=== PATIENT | female | born 1965 | race Caucasian/White ===

== ENCOUNTER 2017-03-15 18:30 | Emergency (ER) | payer MEDICARE, MEDICAID ==
[2017-03-15 19:12] VITALS: BP 99/70
[2017-03-15] MEDS ORDERED: HYDROmorphone 1 MG/ML Syringe IVPUSH ONE (20:00)
[2017-03-15] MEDS ORDERED: Sodium Chloride 0.9% 10 ML Syringe FLUSH PRN (20:00)
[2017-03-15] MEDS ORDERED: Sodium Chloride 0.9% 1,000 ML IV SCH (20:00)
[2017-03-15] MEDS ORDERED: Prochlorperazine 10 MG/2 ML SDV IVPUSH ONE (20:01)
[2017-03-15] MEDS ORDERED: diphenhydrAMINE 50 MG/ML SDV IVPUSH ONE (20:01)
--- NOTE | 2017-03-15 23:18 | EDM.PDOC ---
ED HPI HEADACHE COMPLAINT - General Chief Complaint: Headache Stated Complaint: MIGRAINE Time Seen by Provider: 03/15/17 19:51 Source: Reports: Patient History Limitations: Reports: No limitations - History of Present Illness INITIAL COMMENTS - FREE TEXT/NARRATIVE: This lady comes complains of a severe migraine. It's been going on all day long. It's mostly in the right parietal area. This is similar to headaches he' s had in the past. She has been vomiting a little bit today - Related Data Allergies/ADRs: Allergies Allergy/AdvReac Type Severity Reaction Status Date / Time bee pollen Allergy Anaphylactic Verified 12/25/16 16:56 Shock butorphanol tartrate Allergy Rash Verified 12/25/16 16:56 [From Stadol] latex Allergy Itching Verified 12/25/16 16:56 meperidine HCl [From Demerol] Allergy Itching Verified 12/25/16 16:56 Home Meds: Home Meds Albuterol [Ventolin HFA] 2 puff INH QID PRN 06/12/14 [History] Amitriptyline HCl 50 mg PO BEDTIME 06/12/14 [History] Aspirin 325 mg PO DAILY 06/12/14 [History] Baclofen 5 mg PO BID 06/12/14 [History] Gabapentin 300 mg PO BID 06/12/14 [History] Simvastatin 20 mg PO QAM 06/12/14 [History] Topiramate [Topamax] 100 mg PO BID 06/12/14 [History] Venlafaxine HCl [Venlafaxine ER] 150 mg PO QAM 06/12/14 [History] Cholecalciferol (Vitamin D3) [Vitamin D3] 2 cap PO QAM 09/05/15 [History] Potassium Bicarbonate/Cit Ac [Effer-K] 20 meq PO DAILY 09/03/16 [History] Thiamine HCl [B-1] 2 tab PO DAILY 09/03/16 [History] Famotidine [Take Home: Famotidine 20 MG, 3 Tab Pack] 20 mg PO DAILY 10/15/16 [ History] Ondansetron [Zofran ODT] 4 mg PO Q6H PRN #5 tab.dis 10/15/16 [Rx] Past Medical History HEENT History: Reports: Impaired vision, Other (see below) Other HEENT History: Top and bottom dentures Cardiovascular History: Reports: High cholesterol, Hypertension Respiratory History: Reports: Asthma Gastrointestinal History: Reports: Chronic constipation 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: 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 History: Reports: Fracture Other 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 History: Left arm Neurological History: Reports: CVA, Other (see below) Other Neuro History: stroke affected left side Psychiatric History: Reports: Anxiety, Depression Endocrine/Metabolic History: Reports: Hyperthyroidism Hematologic History: Reports: B12 deficiency Immunologic History: Reports: Other (see below) Other Immunologic History: hepatitis b Oncologic (Cancer) History: Reports: Cervix Dermatologic History: Reports: Other (see below) Other Dermatologic History: dry sensative skin - Infectious Disease History Infectious Disease History: Reports: C-difficile, Hepatitis B, Measles, Mumps - Past Surgical History GI Surgical History: Reports: Appendectomy Other GI Surgeries/Procedures: laporoscopy Social & Family History - Family History Family Medical History: Unobtainable - Tobacco Use Smoking Status *Q: Current Every Day Smoker Years of Tobacco use: 30 Packs/Tins Daily: 0.5 Second Hand Smoke Exposure: No - Caffeine Use Caffeine Use: Reports: Coffee, Tea - Alcohol Use Days Per Week of Alcohol Use: 1 Number of Drinks Per Day: 1 Total Drinks Per Week: 1 - Recreational Drug Use Recreational Drug Use: Yes Drug Use in Last 12 Months: Yes Recreational Drug Type: Reports: Marijuana/Hashish Recreational Drug Use Frequency: Monthly ED ROS GENERAL - Review of Systems Review Of Systems: ROS reveals no pertinent complaints other than HPI. - Physical Exam Exam: See Below Exam Limited By: No limitations General Appearance: alert, moderate distress, thin Eye Exam: bilateral eye: EOMI, PERRL Throat/Mouth: Normal inspection Head Exam: atraumatic, other (Some minor scalp tenderness in the right arrival.) Neck: normal inspection Respiratory/Chest: lungs clear Cardiovascular: regular rate, rhythm Neuro Exam (Abbreviated): alert, oriented, CN II-XII intact, normal cognition, no motor/sensory deficits Course - Vital Signs Last Recorded V/S: Last Vital Signs Temp 35.6 C 03/15/17 19:09 Pulse 71 03/15/17 19:09 Resp 14 03/15/17 19:09 BP 99/70 03/15/17 19:09 Pulse Ox 98 03/15/17 19:09 - Orders/Labs/Meds Orders: Active Orders 24 hr Category Date Time Status Sodium Chloride 0.9% [Normal Saline] 1,000 ml Med 03/15/17 20:00 Active IV ASDIRECTED Sodium Chloride 0.9% [Saline Flush] Med 03/15/17 20:00 Active 10 ml FLUSH ASDIRECTED PRN Saline Lock Insert [OM.PC] Urgent Oth 03/15/17 20:00 Ordered Medication Orders Sodium Chloride (Normal Saline) 1,000 mls @ 999 mls/hr IV ASDIRECTED TYLER Last Admin: 03/15/17 20:27 Dose: 999 mls/hr Sodium Chloride (Saline Flush) 10 ml FLUSH ASDIRECTED PRN PRN Reason: Keep Vein Open Last Admin: 03/15/17 20:25 Dose: 10 ml Meds: Medications Generic Name Dose Route Start Last Admin Trade Name Freq PRN Reason Stop Dose Admin Sodium Chloride 1,000 mls @ 999 mls/hr 03/15/17 20:00 03/15/17 20:27 Normal Saline IV 999 mls/hr ASDIRECTED TYLER Administration Sodium Chloride 10 ml 03/15/17 20:00 03/15/17 20:25 Saline Flush FLUSH 10 ml ASDIRECTED PRN Administration Keep Vein Open Discontinued Medications Generic Name Dose Route Start Last Admin Trade Name Freq PRN Reason Stop Dose Admin Diphenhydramine HCl 25 mg 03/15/17 20:01 03/15/17 20:26 Benadryl IVPUSH 03/15/17 20:02 25 mg ONETIME ONE Administration Hydromorphone HCl 1 mg 03/15/17 20:00 03/15/17 20:27 Dilaudid IVPUSH 03/15/17 20:01 1 mg ONETIME ONE Administration Prochlorperazine Edisylate 10 mg 03/15/17 20:01 03/15/17 20:26 Compazine IVPUSH 03/15/17 20:02 10 mg ONETIME ONE Administration - Re-Assessments/Exams Free Text/Narrative Re-Assessment/Exam: 03/15/17 23:23 An IV was established. She was given 1 L IV normal saline. She also received 1 mg Dilaudid 10 mg Compazine and Benadryl 50 mg IV. By the time the IV fluid was run and her headache was mostly relieved and she felt ready to go home. She was advised of sedation with medications Departure - Departure Time of Disposition: 23:17 Disposition: Home, Self-Care 01 Condition: fair Clinical Impression: Migraine Instructions: Migraine Headache, [id number] Referrals: Marta Powell MD [Primary Care Provider] - Forms: ED Department Discharge Additional Instructions: Go home and go straight to bed. The medication he received will make you sleepy for at least the next 12 hours. This medication will impair driving. Continue all your previous medications. Return to the ER if needed. - My Orders Last 24 Hours: My Active Orders 03/15/17 20:00 Sodium Chloride 0.9% [Normal Saline] 1,000 ml IV ASDIRECTED Sodium Chloride 0.9% [Saline Flush] 10 ml FLUSH ASDIRECTED PRN Saline Lock Insert [OM.PC] Urgent - Assessment/Plan Last 24 Hours: My Active Orders 03/15/17 20:00 Sodium Chloride 0.9% [Normal Saline] 1,000 ml IV ASDIRECTED Sodium Chloride 0.9% [Saline Flush] 10 ml FLUSH ASDIRECTED PRN Saline Lock Insert [OM.PC] Urgent
== END 2017-03-15 23:26 | disposition home or self-care (01) ==
LOC: JP.ED 18:30
DX: G43.909 Migraine, unspecified, not intractable, without status migrainosus (principal); I10 Essential (primary) hypertension; E78.00 Pure hypercholesterolemia, unspecified; J45.909 Unspecified asthma, uncomplicated; F41.9 Anxiety disorder, unspecified; F32.9 Major depressive disorder, single episode, unspecified; E03.9 Hypothyroidism, unspecified; F17.210 Nicotine dependence, cigarettes, uncomplicated; Z85.41 Personal history of malignant neoplasm of cervix uteri; Z90.49 Acquired absence of other specified parts of digestive tract; Z79.82 Long term (current) use of aspirin; Z79.899 Other long term (current) drug therapy; Z88.8 Allergy status to other drugs, medicaments and biological substances; Z91.040 Latex allergy status; Z91.048 Other nonmedicinal substance allergy status
CPT/HCPCS: 96361; 96374; 96375; 99284; J0780; J1170; J1200; J7040; J7050

== ENCOUNTER 2017-03-20 21:36 | Emergency (ER) | payer MEDICARE, MEDICAID ==
[2017-03-20 22:37] VITALS: BP 140/74
[2017-03-20] MEDS ORDERED: SUMAtriptan 6 MG/0.5 ML SDV SUBCUT ONE (22:40)
[2017-03-20] MEDS ORDERED: Ondansetron 4 MG Tab.DIS PO ONE (22:41)
--- NOTE | 2017-03-20 22:44 | EDM.PDOC ---
[id number] 4d MIGRAINE Time Seen by Provider: 03/20/17 22:42 Source: Reports: Patient History Limitations: Reports: No limitations - History of Present Illness INITIAL COMMENTS - FREE TEXT/NARRATIVE: pt arrived with a migraine which she describes as her usual headache. She has not been vomiting. She has had a headache since 8 pm tonight. Timing/Duration: Reports: hour(s):, getting worse Location: Reports: temporal, right, other ( Feels like she has shooting pain the rt eye. ) Quality: Reports: pounding Severity: Reports: moderate Associated Symptoms: Reports: photophobia - Related Data Allergies/ADRs: Allergies Allergy/AdvReac Type Severity Reaction Status Date / Time bee pollen Allergy Anaphylactic Verified 03/20/17 22:29 Shock butorphanol tartrate Allergy Rash Verified 03/20/17 22:29 [From Stadol] latex Allergy Itching Verified 03/20/17 22:29 meperidine HCl [From Demerol] Allergy Itching Verified 03/20/17 22:29 Home Meds: Home Meds Albuterol [Ventolin HFA] 2 puff INH QID PRN 06/12/14 [History] Amitriptyline HCl 50 mg PO BEDTIME 06/12/14 [History] Aspirin 325 mg PO DAILY 06/12/14 [History] Baclofen 5 mg PO BID 06/12/14 [History] Gabapentin 300 mg PO BID 06/12/14 [History] Simvastatin 20 mg PO QAM 06/12/14 [History] Topiramate [Topamax] 100 mg PO BID 06/12/14 [History] Venlafaxine HCl [Venlafaxine ER] 150 mg PO QAM 06/12/14 [History] Cholecalciferol (Vitamin D3) [Vitamin D3] 2 cap PO QAM 09/05/15 [History] Potassium Bicarbonate/Cit Ac [Effer-K] 20 meq PO BID 09/03/16 [History] Thiamine HCl [B-1] 2 tab PO DAILY 09/03/16 [History] Famotidine [Take Home: Famotidine 20 MG, 3 Tab Pack] 20 mg PO DAILY 10/15/16 [ History] Ondansetron [Zofran ODT] 4 mg PO Q6H PRN #5 tab.dis 10/15/16 [Rx] Past Medical History HEENT History: Reports: Impaired vision, Other (see below) Other HEENT History: Top and bottom dentures Cardiovascular History: Reports: High cholesterol, Hypertension Respiratory History: Reports: Asthma Gastrointestinal History: Reports: Chronic constipation 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: 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 History: Reports: Fracture Other 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 History: Left arm Neurological History: Reports: CVA, Migraines, Other (see below) Other Neuro History: stroke affected left side Psychiatric History: Reports: Addiction, Anxiety, Depression, Suicide attempt Endocrine/Metabolic History: Reports: Hyperthyroidism Hematologic History: Reports: B12 deficiency Immunologic History: Reports: Other (see below) Other Immunologic History: hepatitis b Oncologic (Cancer) History: Reports: Cervix Dermatologic History: Reports: Other (see below) Other Dermatologic History: dry sensitive skin - Infectious Disease History Infectious Disease History: Reports: C-difficile, Hepatitis B, Measles, Mumps - Past Surgical History GI Surgical History: Reports: Appendectomy Other GI Surgeries/Procedures: laporoscopy Social & Family History - Family History Family Medical History: Unobtainable - Tobacco Use Smoking Status *Q: Current Every Day Smoker Years of Tobacco use: 30 Packs/Tins Daily: 0.5 Second Hand Smoke Exposure: No - Caffeine Use Caffeine Use: Reports: Coffee, Tea - Alcohol Use Days Per Week of Alcohol Use: 1 Number of Drinks Per Day: 1 Total Drinks Per Week: 1 - Recreational Drug Use Recreational Drug Use: Yes Drug Use in Last 12 Months: Yes Recreational Drug Type: Reports: Marijuana/Hashish Recreational Drug Use Frequency: Monthly ED ROS GENERAL - Review of Systems Review Of Systems: See Below Constitutional: Reports: no symptoms HEENT: Reports: No symptoms Respiratory: Reports: No Symptoms Cardiovascular: Reports: No symptoms Endocrine: Reports: no symptoms GI/Abdominal: Reports: No symptoms : Reports: no symptoms 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: Reports: no symptoms Skin: Reports: no symptoms - Physical Exam Exam: See Below Text/Narrative:: pt arrived with a rt sided head . She couldn,t find her immitrex. She states the headache started about 8 pm tonight. Exam Limited By: No limitations General Appearance: alert, anxious, moderate distress Ears: normal TMs Nose: normal inspection Throat/Mouth: Normal inspection Head Exam: atraumatic, other ( she decribed a headache on the rt side through the eye. ) Neck: normal inspection Respiratory/Chest: no respiratory distress Cardiovascular: regular rate, rhythm GI/Abdominal: soft, non tender Rectal (Female) Exam: Deferred Neuro Exam (Abbreviated): alert, oriented, normal cognition Back Exam: normal inspection Extremities: normal inspection Psychiatric: normal affect Course - Vital Signs Last Recorded V/S: Last Vital Signs Temp 36 C 03/20/17 22:35 Pulse 81 03/20/17 22:35 Resp 18 03/20/17 22:35 BP 140/74 03/20/17 22:35 Pulse Ox 98 03/20/17 22:35 - Orders/Labs/Meds Meds: Medications Discontinued Medications Generic Name Dose Route Start Last Admin Trade Name Freq PRN Reason Stop Dose Admin Diphenhydramine HCl 50 mg 03/20/17 23:13 03/20/17 23:30 Benadryl IVPUSH 03/20/17 23:14 50 mg ONETIME ONE Administration Hydromorphone HCl 0.5 mg 03/20/17 23:14 03/20/17 23:33 Dilaudid IVPUSH 03/20/17 23:15 0.5 mg ONETIME ONE Administration Sodium Chloride 1,000 mls @ 999 mls/hr 03/20/17 23:15 03/20/17 23:25 Normal Saline IV 999 mls/hr ASDIRECTED TYLER Administration Ondansetron HCl 4 mg 03/20/17 22:41 03/20/17 22:50 Zofran Odt PO 03/20/17 22:42 4 mg ONETIME ONE Administration Prochlorperazine Edisylate 10 mg 03/20/17 23:13 03/20/17 23:27 Compazine IVPUSH 03/20/17 23:14 10 mg ONETIME ONE Administration Sumatriptan Succinate 6 mg 03/20/17 22:40 03/20/17 22:51 Imitrex SUBCUT 03/20/17 22:41 6 mg ONETIME ONE Administration - Re-Assessments/Exams Free Text/Narrative Re-Assessment/Exam: 03/21/17 00:04 pt arrived with a rt sided headache which started tonight. She did not try the immitrex prior to coming in. immitrex was tried 6mg subq. She did not get relief from this. she was then given benadryl 50mg, compazine 10mg iv and dilaudid .5 mg iv. She is very sleepy and I think she could go home and rest. 03/22/17 07:26 Departure - Departure Time of Disposition: 00:06 Disposition: Home, Self-Care 01 Condition: fair Clinical Impression: Migraine headache Instructions: Migraine Headache, [id number] Referrals: PCP,None [Primary Care Provider] - Forms: ED Department Discharge Care Plan Goals: go home to rest push fluids, if pt hs persistent headaches she should see her regular Dr and get a refill of immitrex
[2017-03-20] MEDS ORDERED: diphenhydrAMINE 50 MG/ML SDV IVPUSH ONE (23:13)
[2017-03-20] MEDS ORDERED: Prochlorperazine 10 MG/2 ML SDV IVPUSH ONE (23:13)
[2017-03-20] MEDS ORDERED: HYDROmorphone 0.5 MG/0.5 ML Syringe IVPUSH ONE (23:14)
[2017-03-20] MEDS ORDERED: Sodium Chloride 0.9% 1,000 ML IV SCH (23:15)
== END 2017-03-21 00:20 | disposition home or self-care (01) ==
LOC: JP.ED 21:36
DX: G43.909 Migraine, unspecified, not intractable, without status migrainosus (principal); E78.00 Pure hypercholesterolemia, unspecified; I10 Essential (primary) hypertension; J45.909 Unspecified asthma, uncomplicated; F41.9 Anxiety disorder, unspecified; F32.9 Major depressive disorder, single episode, unspecified; E05.90 Thyrotoxicosis, unspecified without thyrotoxic crisis or storm; F17.210 Nicotine dependence, cigarettes, uncomplicated; Z86.73 Personal history of transient ischemic attack (TIA), and cerebral infarction without residual deficits; Z79.899 Other long term (current) drug therapy; Z90.49 Acquired absence of other specified parts of digestive tract; Z91.040 Latex allergy status; Z88.5 Allergy status to narcotic agent; Z91.030 Bee allergy status; Z79.82 Long term (current) use of aspirin
CPT/HCPCS: 96361; 96374; 96375; 99283; A9270; J0780; J1170; J1200; J3030; J7040; 99284

== ENCOUNTER 2017-04-28 18:57 | Emergency (ER) | payer MEDICARE, MEDICAID ==
[2017-04-28 19:24] VITALS: BP 126/84
[2017-04-28] MEDS ORDERED: SUMAtriptan 6 MG/0.5 ML SDV SUBCUT ONE (20:23)
[2017-04-28] MEDS ORDERED: LORazepam 0.5 MG Tab PO ONE (20:24)
--- NOTE | 2017-04-28 20:30 | EDM.PDOC ---
ED HPI GENERAL MEDICAL PROBLEM - General Chief Complaint: Headache Stated Complaint: MIGRAINE Time Seen by Provider: 04/28/17 20:05 Source of Information: Reports: Patient History Limitations: Reports: No Limitations - History of Present Illness INITIAL COMMENTS - FREE TEXT/NARRATIVE: Patient presents today with complaints of migraine headache. She states she has tried ibuprofen and caffeine with no results. She also reports she usually take imitrex for her migraines but has run out of the medication. 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: caffeine and ibuprofen Head Pain Score (Numeric/FACES): 8 - Related Data Allergies Allergy/AdvReac Type Severity Reaction Status Date / Time bee pollen Allergy Anaphylactic Verified 04/28/17 19:35 Shock butorphanol tartrate Allergy Rash Verified 04/28/17 19:35 [From Stadol] latex Allergy Itching Verified 04/28/17 19:35 meperidine HCl [From Demerol] Allergy Itching Verified 04/28/17 19:35 Home Meds: Home Meds Albuterol [Ventolin HFA] 2 puff INH QID PRN 06/12/14 [History] Amitriptyline HCl 50 mg PO BEDTIME 06/12/14 [History] Aspirin 325 mg PO DAILY 06/12/14 [History] Baclofen 5 mg PO BID 06/12/14 [History] Gabapentin 300 mg PO BID 06/12/14 [History] Simvastatin 20 mg PO BEDTIME 06/12/14 [History] Topiramate [Topamax] 100 mg PO BID 06/12/14 [History] Venlafaxine HCl [Venlafaxine ER] 150 mg PO QAM 06/12/14 [History] Cholecalciferol (Vitamin D3) [Vitamin D3] 2 cap PO QAM 09/05/15 [History] Potassium Bicarbonate/Cit Ac [Effer-K] 20 meq PO BID 09/03/16 [History] Thiamine HCl [B-1] 2 tab PO DAILY 09/03/16 [History] Famotidine [Take Home: Famotidine 20 MG, 3 Tab Pack] 20 mg PO DAILY 10/15/16 [ History] Ondansetron [Zofran ODT] 4 mg PO Q6H PRN #5 tab.dis 10/15/16 [Rx] Past Medical History HEENT History: Reports: Impaired Vision, Other (See Below) Other HEENT History: Top and bottom dentures Cardiovascular History: Reports: High Cholesterol, Hypertension Respiratory History: Reports: Asthma Gastrointestinal History: Reports: Chronic 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: 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 History: Reports: Fracture Other 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 History: Left arm Neurological History: Reports: CVA, Migraines, Other (See Below) Other Neuro History: has brace on left leg Psychiatric History: Reports: Addiction, Anxiety, Depression, Suicide Attempt Endocrine/Metabolic History: Reports: Hyperthyroidism Hematologic History: Reports: B12 Deficiency Immunologic History: Reports: Other (See Below) Other Immunologic History: hepatitis b Oncologic (Cancer) History: Reports: Cervix Dermatologic History: Reports: Other (See Below) Other Dermatologic History: dry sensitive skin - Infectious Disease History Infectious Disease History: Reports: Chicken Pox, Mumps - Past Surgical History GI Surgical History: Reports: Appendectomy Other GI Surgeries/Procedures: laporoscopy Social & Family History - Family History Family Medical History: Unobtainable - Tobacco Use Smoking Status *Q: Current Every Day Smoker Years of Tobacco use: 30 Packs/Tins Daily: 0.5 Second Hand Smoke Exposure: No - Caffeine Use Caffeine Use: Reports: Coffee - Alcohol Use Days Per Week of Alcohol Use: 1 Number of Drinks Per Day: 1 Total Drinks Per Week: 1 - Recreational Drug Use Recreational Drug Use: Yes Drug Use in Last 12 Months: Yes Recreational Drug Type: Reports: Marijuana/Hashish Recreational Drug Use Frequency: Monthly ED ROS GENERAL - Review of Systems Review Of Systems: See Below Constitutional: Denies: Fever, Chills, Malaise, Weakness, Fatigue, Night Sweats HEENT: Denies: Dental Pain, Eye Pain, Rhinitis, Throat Pain, Vertigo, Vision Change Respiratory: Denies: Shortness of Breath, Wheezing, Cough Cardiovascular: Denies: Chest Pain, Dyspnea on Exertion, Edema, Lightheadedness , Palpitations, Syncope Endocrine: Reports: No Symptoms GI/Abdominal: Reports: No Symptoms : Reports: No Symptoms 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: Reports: No Symptoms Skin: Reports: No Symptoms Neurological: Reports: Headache. Denies: Confusion, Dizziness, Numbness, Syncope, Tingling, Trouble Speaking, Difficulty Walking, Change in Speech Psychiatric: Reports: Anxiety, Other (Hannah complains of increase in stress and anxiety with difficulty going to public places due to increase number of people and crowds. ). Denies: Agitation, Confusion, Hallucinations, Homicidal Ideation , Mood Lability, Suicidal Ideation Hematologic/Lymphatic: Reports: No Symptoms Immunologic: Reports: No Symptoms - Physical Exam Exam: See Below Exam Limited By: No Limitations General Appearance: Alert, WD/WN, No Apparent Distress Eye Exam: Bilateral Eye: Normal Inspection, PERRL Ears: Normal External Exam, Normal Canal, Hearing Grossly Normal, Normal TMs Nose: Normal Inspection, Normal Mucosa, No Blood Throat/Mouth: Normal Inspection, Normal Lips, Normal Teeth, Normal Gums, Normal Oropharynx, Normal Voice, No Airway Compromise Head Exam: Atraumatic, Normocephalic Neck: Normal Inspection, Supple, Non-Tender, Full Range of Motion Respiratory/Chest: No Respiratory Distress, Lungs Clear, Normal Breath Sounds, Chest Non-Tender Cardiovascular: Normal Peripheral Pulses, Regular Rate, Rhythm, No Edema, No Murmur, No Rub Neuro Exam (Abbreviated): Alert, Oriented, CN II-XII Intact, Normal Cognition, Normal Gait, No Motor/Sensory Deficits Back Exam: Normal Inspection, Full Range of Motion. No: CVA Tenderness (R), CVA Tenderness (L) Extremities: Normal Inspection, Normal Range of Motion, Non-Tender, No Pedal Edema, Normal Capillary Refill Psychiatric: Normal Affect, Normal Mood, Anxious Skin Exam: Warm, Dry, Intact, Normal Color, No Rash Course - Vital Signs Last Recorded V/S: Last Vital Signs Temp 36.2 C 04/28/17 19:30 Pulse 82 04/28/17 19:30 Resp 20 04/28/17 19:30 BP 126/84 04/28/17 19:30 Pulse Ox 99 04/28/17 19:30 - Orders/Labs/Meds Meds: Medications Discontinued Medications Generic Name Dose Route Start Last Admin Trade Name Jesusq PRN Reason Stop Dose Admin Lorazepam 0.5 mg 04/28/17 20:24 04/28/17 20:55 Ativan PO 04/28/17 20:25 0.5 mg ONETIME ONE Administration Sumatriptan Succinate 6 mg 04/28/17 20:23 04/28/17 20:51 Imitrex SUBCUT 04/28/17 20:24 6 mg ONETIME ONE Administration She will receive imitrex IM along with lorazepam in the ER. Hannah complains of increase in recent stressors and anxiety. She does state she has a counselor and will follow up with an appointment this week. - Re-Assessments/Exams Free Text/Narrative Re-Assessment/Exam: 04/28/17 21:00 Patient reports she feels better. She will be discharged. Departure - Departure Time of Disposition: 20:58 Disposition: DC/Tfer W/I Hosp To Swing 61 Condition: fair Clinical Impression: Migraine, Anxiety - Discharge Information Instructions: Migraine Headache, [id number], Panic Attacks, [id number] Referrals: Marta Powell MD [Primary Care Provider] - Forms: ED Department Discharge Additional Instructions: You were treated today for migraine and anxiety with imitrex and lorazepam. Prescriptions provided for additional imitrex and lorazepam. Keep yourself hydrated. Take your medications as directed. Follow up with your counselor to assist in management of stress and anxiety. Follow up with our primary care provider for further care of migraines, anxiety and medication management. Return for worsening of symptoms or concerns. - Assessment/Plan Assessment:: Migraine with anxiety, improvement with imitrex subcutaneous and lorazepam PO. Plan: Patient treated today for migraine and anxiety with imitrex and lorazepam. Prescriptions provided for additional imitrex and lorazepam. She needs to stay hydrated. Take her medications as directed. Follow up with her counselor to assist in management of stress and anxiety. Follow up with her primary care provider for further care of migraines, anxiety and medication management. Return for worsening of symptoms or concerns.
== END 2017-04-28 21:15 | disposition swing bed (61) ==
LOC: JP.ED 18:57
DX: G43.909 Migraine, unspecified, not intractable, without status migrainosus (principal); F41.9 Anxiety disorder, unspecified; I10 Essential (primary) hypertension; E78.00 Pure hypercholesterolemia, unspecified; F32.9 Major depressive disorder, single episode, unspecified; J45.909 Unspecified asthma, uncomplicated; E05.90 Thyrotoxicosis, unspecified without thyrotoxic crisis or storm; Z85.41 Personal history of malignant neoplasm of cervix uteri; Z90.49 Acquired absence of other specified parts of digestive tract; Z98.890 Other specified postprocedural states; F17.210 Nicotine dependence, cigarettes, uncomplicated; Z79.82 Long term (current) use of aspirin; Z79.899 Other long term (current) drug therapy; Z88.8 Allergy status to other drugs, medicaments and biological substances; Z91.040 Latex allergy status; Z91.018 Allergy to other foods; Z86.73 Personal history of transient ischemic attack (TIA), and cerebral infarction without residual deficits
CPT/HCPCS: 96372; 99283; 99284; A9270; J3030

== ENCOUNTER 2017-06-02 20:36 | Emergency (ER) | payer MEDICARE, MEDICAID ==
[2017-06-02 20:43] VITALS: BP 122/75
--- NOTE | 2017-06-02 23:09 | EDM.PDOC ---
ED HPI GENERAL MEDICAL PROBLEM - General Chief Complaint: Neurological Problem Stated Complaint: SEIZURE Time Seen by Provider: 06/02/17 20:49 Source of Information: Reports: Patient History Limitations: Reports: No Limitations - History of Present Illness INITIAL COMMENTS - FREE TEXT/NARRATIVE: This patient arrived by EMS complaining of a seizure like episode. She was at home and was sitting when suddenly her arms sank to clench up in front of her and her legs suddenly contracted her feet curled under and it was as if she was having a giant muscle spasm over her upper and lower extremities. 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 She does have a little bit of movement of the left arm. This episode only lasted about a minute. She also has a cough that is chronic but has seemed to gotten worse recently. There is no hemoptysis. She is a smoker and she hasn't had a chest x-ray previously back, butt Pain Score (Numeric/FACES): 5 - Related Data Allergies Allergy/AdvReac Type Severity Reaction Status Date / Time bee pollen Allergy Anaphylactic Verified 06/02/17 20:42 Shock butorphanol tartrate Allergy Rash Verified 06/02/17 20:42 [From Stadol] latex Allergy Itching Verified 06/02/17 20:42 meperidine HCl [From Demerol] Allergy Itching Verified 06/02/17 20:42 Home Meds: Home Meds Albuterol [Ventolin HFA] 2 puff INH QID PRN 06/12/14 [History] Amitriptyline HCl 50 mg PO BEDTIME 06/12/14 [History] Aspirin 325 mg PO DAILY 06/12/14 [History] Baclofen 10 mg PO TID 06/12/14 [History] Gabapentin 300 mg PO BID 06/12/14 [History] Simvastatin 20 mg PO BEDTIME 06/12/14 [History] Topiramate [Topamax] 100 mg PO BID 06/12/14 [History] Venlafaxine HCl [Venlafaxine ER] 150 mg PO QAM 06/12/14 [History] Cholecalciferol (Vitamin D3) [Vitamin D3] 2 cap PO QAM 09/05/15 [History] Potassium Bicarbonate/Cit Ac [Effer-K] 20 meq PO BID 09/03/16 [History] Thiamine HCl [B-1] 1 tab PO DAILY 09/03/16 [History] Famotidine [Take Home: Famotidine 20 MG, 3 Tab Pack] 20 mg PO DAILY 10/15/16 [ History] Ondansetron [Zofran ODT] 4 mg PO Q6H PRN #5 tab.dis 10/15/16 [Rx] SUMAtriptan Succinate [Sumatriptan Succinate] 1 tab PO BID PRN 06/02/17 [History ] Past Medical History HEENT History: Reports: Impaired Vision, Other (See Below) Other HEENT History: Top and bottom dentures Cardiovascular History: Reports: High Cholesterol, Hypertension Respiratory History: Reports: Asthma Gastrointestinal History: Reports: Chronic 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: 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 History: Reports: Fracture Other 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 History: Left arm Neurological History: Reports: CVA, Migraines, Other (See Below) Other Neuro History: has brace on left leg Psychiatric History: Reports: Addiction, Anxiety, Depression, Suicide Attempt Endocrine/Metabolic History: Reports: Hyperthyroidism Hematologic History: Reports: B12 Deficiency Immunologic History: Reports: Other (See Below) Other Immunologic History: hepatitis b Oncologic (Cancer) History: Reports: Cervix Dermatologic History: Reports: Other (See Below) Other Dermatologic History: dry sensitive skin - Infectious Disease History Infectious Disease History: Reports: Chicken Pox, Mumps - Past Surgical History GI Surgical History: Reports: Appendectomy Other GI Surgeries/Procedures: laporoscopy Social & Family History - Family History Family Medical History: Unobtainable - Tobacco Use Smoking Status *Q: Current Every Day Smoker Years of Tobacco use: 35 Packs/Tins Daily: 0.2 Second Hand Smoke Exposure: No - Caffeine Use Caffeine Use: Reports: Coffee, Energy Drinks, Soda - Alcohol Use Days Per Week of Alcohol Use: 1 Number of Drinks Per Day: 1 Total Drinks Per Week: 1 - Recreational Drug Use Recreational Drug Use: No Drug Use in Last 12 Months: Yes Recreational Drug Type: Reports: Marijuana/Hashish Recreational Drug Use Frequency: Monthly ED ROS GENERAL - Review of Systems Review Of Systems: ROS reveals no pertinent complaints other than HPI. - Physical Exam Exam: See Below Exam Limited By: No Limitations General Appearance: Alert, No Apparent Distress, Thin Eye Exam: Bilateral Eye: EOMI, Normal Inspection, PERRL Ears: Normal External Exam Nose: Normal Inspection Throat/Mouth: Normal Oropharynx Head Exam: Atraumatic Neck: Normal Inspection Respiratory/Chest: Lungs Clear Cardiovascular: Regular Rate, Rhythm, No Murmur GI/Abdominal: Soft, Non-Tender Neuro Exam (Abbreviated): Alert, Oriented, CN II-XII Intact, Normal Cognition, Other (She does have some paralysis and spasm of the left arm and leg. The left wrist flexors or spastic and the extensors of the left ankle are also spastic.) Extremities: Normal Inspection Psychiatric: Normal Affect Skin Exam: Warm Course - Vital Signs Last Recorded V/S: Last Vital Signs Temp 37.9 C 06/02/17 20:50 Pulse 89 06/02/17 20:50 Resp 16 06/02/17 20:50 BP 122/75 06/02/17 20:50 Pulse Ox 97 06/02/17 20:50 - Orders/Labs/Meds Orders: Active Orders 24 hr Category Date Time Status Chest 2V [CR] Urgent Exams 06/02/17 21:26 Taken Head wo Cont [CT] Stat Exams 06/02/17 21:23 Taken Labs: Laboratory Tests 06/02/17 06/02/17 Range/Units 21:37 21:37 WBC 16.2 H (4.5-11.0) K/uL RBC 4.57 (3.30-5.50) M/uL Hgb 13.5 (12.0-15.0) g/dL Hct 40.8 (36.0-48.0) % MCV 89 (80-98) fL MCH 30 (27-31) pg MCHC 33 (32-36) % Plt Count 207 (150-400) K/uL Neut % (Auto) 83 H (36-66) % Lymph % (Auto) 8 L (24-44) % Irwin % (Auto) 8 H (2-6) % Eos % (Auto) 1 L (2-4) % Baso % (Auto) 0 (0-1) % Sodium 139 L (140-148) mmol/L Potassium 3.5 L (3.6-5.2) mmol/L Chloride 104 (100-108) mmol/L Carbon Dioxide 24 (21-32) mmol/L Anion Gap 14.5 H (5.0-14.0) mmol/L BUN 14 (7-18) mg/dL Creatinine 1.0 (0.6-1.0) mg/dL Est Cr Clr Drug Dosing 56.83 mL/min Estimated GFR (MDRD) 58 L (>60) Glucose 100 (74-106) mg/dL Calcium 8.8 (8.5-10.1) mg/dL Total Bilirubin 0.2 (0.2-1.0) mg/dL AST 17 (15-37) U/L ALT 19 (12-78) U/L Alkaline Phosphatase 126 H (46-116) U/L Total Protein 7.6 (6.4-8.2) g/dL Albumin 3.8 (3.4-5.0) g/dL Globulin 3.8 H (2.3-3.5) g/dL Albumin/Globulin Ratio 1.0 L (1.2-2.2) - Radiology Interpretation Free Text/Narrative:: Head CT was negative for any mass hemorrhage or other acute processes Chest x-ray showed normal heart size lungs are hyperexpanded consistent with some COPD. There appears to be a area of atelectasis in the left lung base actually at the costophrenic angle. There are no old chest x-rays to compare with - Re-Assessments/Exams Free Text/Narrative Re-Assessment/Exam: 06/02/17 23:14 Labs were reviewed. Her white blood cell count is slightly elevated. Note that her temp is also slightly elevated. She does have a very wet sounding cough so I will treat her for bronchitis. She had no urinary symptoms so a urine was not ordered. Departure - Departure Time of Disposition: 23:01 Disposition: Home, Self-Care 01 Condition: Fair Clinical Impression: Seizure-like activity, Bronchitis - Discharge Information Referrals: PCP,None [Primary Care Provider] - Forms: ED Department Discharge Additional Instructions: It is possible that you had a small focal motor seizure. If you continue to have episodes like this then you're going to need a test for seizures called an EEG and your can arrange this. You appear to have bronchitis so I'm starting you on the antibiotic cephalexin 500 mg 4 times daily for 10 days. There was a small spot on her chest x-ray at the very bottom of your left lung. You should talk with your doctor about this and decide if you need to have another chest x-ray done in a month or so to see that that spot goes away. If you've had another x-ray done in the distant past it would be a good idea to take a look at that x-ray. - My Orders Last 24 Hours: My Active Orders 06/02/17 21:23 Head wo Cont [CT] Stat 06/02/17 21:26 Chest 2V [CR] Urgent - Assessment/Plan Last 24 Hours: My Active Orders 06/02/17 21:23 Head wo Cont [CT] Stat 06/02/17 21:26 Chest 2V [CR] Urgent
--- NOTE | 2017-06-03 11:32 | CR ---
Chest 2V INDICATION: pain FINDINGS: Subsegmental atelectasis left lung base. Minimal density adjacent to left hilum could repr esent early developing infiltrate, however, this cannot be visualized on the lateral view. Consider short interval follow-up chest x-ray.
== END 2017-06-02 23:40 | disposition home or self-care (01) ==
LOC: JP.ED 20:36
DX: R29.818 Other symptoms and signs involving the nervous system (principal); J40 Bronchitis, not specified as acute or chronic; F17.210 Nicotine dependence, cigarettes, uncomplicated; I10 Essential (primary) hypertension; E78.00 Pure hypercholesterolemia, unspecified; G43.909 Migraine, unspecified, not intractable, without status migrainosus; E05.90 Thyrotoxicosis, unspecified without thyrotoxic crisis or storm; F41.9 Anxiety disorder, unspecified; F32.9 Major depressive disorder, single episode, unspecified; Z86.73 Personal history of transient ischemic attack (TIA), and cerebral infarction without residual deficits; Z90.49 Acquired absence of other specified parts of digestive tract; Z79.899 Other long term (current) drug therapy; Z79.82 Long term (current) use of aspirin; Z91.030 Bee allergy status; Z91.040 Latex allergy status; Z88.5 Allergy status to narcotic agent; Z88.8 Allergy status to other drugs, medicaments and biological substances
CPT/HCPCS: 36415; 70450; 71020; 71020-26; 80053; 85025; 99284; 99285-25

== ENCOUNTER 2017-06-14 17:52 | Emergency (ER) | payer MEDICARE, MEDICAID ==
--- NOTE | 2017-06-14 18:27 | EDM.PDOC ---
[id number] Complaint: seizures Time Seen by Provider: 06/14/17 18:05 Source of Information: Reports: Patient, EMS History Limitations: Reports: No Limitations - History of Present Illness INITIAL COMMENTS - FREE TEXT/NARRATIVE: 52-year-old female in for the second time in a week for a "seizure". She was again brought in by EMS. She claims she was sitting visiting with somebody, when her head started shaking and her arm started shaking. She remembers the entire event. She did not lose continence. No shortness of breath, chest pain, nausea or vomiting. When EMS arrived there was no seizure activity. A complete workup was done a week ago including a head CT, she has an appointment with neurology on Friday. She now seems baseline, her speech is clear, she focuses well and she has no symptoms. She does have a history of methamphetamine abuse and CVA with some resultant chronic left-sided weakness. She wears a splint on her lower left leg. She also has chronic spasms and muscle tightness in her upper left extremity. She is on gabapentin 300 mg twice a day, has not missed any of her medication doses. She just finished a course of cephalexin for bronchitis which was diagnosed when she was in last week. Onset: Sudden Duration: Hour(s): (Within the past 1-2 hours) Severity: Mild Associated Symptoms: Reports: No Other Symptoms 10 Pain Score (Numeric/FACES): 10 - Related Data Allergies Allergy/AdvReac Type Severity Reaction Status Date / Time bee pollen Allergy Anaphylactic Verified 06/14/17 18:19 Shock butorphanol tartrate Allergy Rash Verified 06/14/17 18:19 [From Stadol] latex Allergy Itching Verified 06/14/17 18:19 meperidine HCl [From Demerol] Allergy Itching Verified 06/14/17 18:19 Home Meds: Home Meds Albuterol [Ventolin HFA] 2 puff INH QID PRN 06/12/14 [History] Amitriptyline HCl 50 mg PO BEDTIME 06/12/14 [History] Aspirin 325 mg PO DAILY 06/12/14 [History] Baclofen 10 mg PO TID 06/12/14 [History] Gabapentin 300 mg PO BID 06/12/14 [History] Simvastatin 20 mg PO BEDTIME 06/12/14 [History] Topiramate [Topamax] 100 mg PO BID 06/12/14 [History] Venlafaxine HCl [Venlafaxine ER] 150 mg PO QAM 06/12/14 [History] Cholecalciferol (Vitamin D3) [Vitamin D3] 2 cap PO QAM 09/05/15 [History] Potassium Bicarbonate/Cit Ac [Effer-K] 20 meq PO BID 09/03/16 [History] Thiamine HCl [B-1] 1 tab PO DAILY 09/03/16 [History] Famotidine [Take Home: Famotidine 20 MG, 3 Tab Pack] 20 mg PO DAILY 10/15/16 [ History] Ondansetron [Zofran ODT] 4 mg PO Q6H PRN #5 tab.dis 10/15/16 [Rx] SUMAtriptan Succinate [Sumatriptan Succinate] 1 tab PO BID PRN 06/02/17 [History ] Past Medical History HEENT History: Reports: Impaired Vision, Other (See Below) Other HEENT History: Top and bottom dentures Cardiovascular History: Reports: High Cholesterol, Hypertension Respiratory History: Reports: Asthma Gastrointestinal History: Reports: Chronic 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: 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 History: Reports: Fracture Other 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 History: Left arm Neurological History: Reports: CVA, Migraines, Other (See Below) Other Neuro History: has brace on left leg Psychiatric History: Reports: Addiction, Anxiety, Depression, Suicide Attempt Endocrine/Metabolic History: Reports: Hyperthyroidism Hematologic History: Reports: B12 Deficiency Immunologic History: Reports: Other (See Below) Other Immunologic History: hepatitis b Oncologic (Cancer) History: Reports: Cervix Dermatologic History: Reports: Other (See Below) Other Dermatologic History: dry sensitive skin - Infectious Disease History Infectious Disease History: Reports: Chicken Pox, Mumps - Past Surgical History GI Surgical History: Reports: Appendectomy Other GI Surgeries/Procedures: laporoscopy Social & Family History - Family History Family Medical History: Unobtainable - Tobacco Use Smoking Status *Q: Current Every Day Smoker Years of Tobacco use: 35 Packs/Tins Daily: 0.2 Second Hand Smoke Exposure: No - Caffeine Use Caffeine Use: Reports: Coffee, Energy Drinks, Soda - Alcohol Use Days Per Week of Alcohol Use: 1 Number of Drinks Per Day: 1 Total Drinks Per Week: 1 - Recreational Drug Use Recreational Drug Use: No Drug Use in Last 12 Months: Yes Recreational Drug Type: Reports: Marijuana/Hashish Recreational Drug Use Frequency: Monthly ED ROS GENERAL - Review of Systems Review Of Systems: See Below Constitutional: Denies: Fever, Chills Respiratory: Reports: Cough (Cough is somewhat improved since being on antibiotics but still present). Denies: Shortness of Breath Cardiovascular: Denies: Chest Pain, Palpitations GI/Abdominal: Denies: Abdominal Pain, Nausea, Vomiting Skin: Reports: No Symptoms Neurological: Reports: Other (Chronic left-sided weakness unchanged) ED EXAM, GENERAL - Physical Exam Exam: See Below Exam Limited By: No Limitations General Appearance: Alert, No Apparent Distress Eye Exam: Bilateral Eye: EOMI Respiratory/Chest: No Respiratory Distress, Lungs Clear Cardiovascular: Regular Rate, Rhythm GI/Abdominal: Soft, Non-Tender Extremities: Other (Left arm is held in contraction, there is a wrist splint in place as well as a left lower extremity splint) Neurological: Alert, Oriented, Other (Left-sided weakness is chronic and unchanged) Skin Exam: Warm, Dry Course - Vital Signs Last Recorded V/S: Last Vital Signs Temp 97.7 F 06/14/17 19:33 Pulse 71 06/14/17 19:33 Resp 15 06/14/17 19:33 BP 123/75 06/14/17 19:33 Pulse Ox 98 06/14/17 19:33 - Orders/Labs/Meds Labs: Laboratory Tests 06/14/17 06/14/17 Range/Units 18:22 18:22 WBC 8.2 (4.5-11.0) K/uL RBC 4.35 (3.30-5.50) M/uL Hgb 12.8 (12.0-15.0) g/dL Hct 39.1 (36.0-48.0) % MCV 90 (80-98) fL MCH 29 (27-31) pg MCHC 33 (32-36) % Plt Count 249 (150-400) K/uL Neut % (Auto) 53 (36-66) % Lymph % (Auto) 36 (24-44) % Bowman % (Auto) 8 H (2-6) % Eos % (Auto) 3 (2-4) % Baso % (Auto) 0 (0-1) % Sodium 143 (140-148) mmol/L Potassium 3.6 (3.6-5.2) mmol/L Chloride 108 (100-108) mmol/L Carbon Dioxide 27 (21-32) mmol/L Anion Gap 7.9 (5.0-14.0) mmol/L BUN 12 (7-18) mg/dL Creatinine 0.9 (0.6-1.0) mg/dL Est Cr Clr Drug Dosing 62.83 mL/min Estimated GFR (MDRD) > 60 (>60) Glucose 92 (74-106) mg/dL Calcium 8.8 (8.5-10.1) mg/dL Magnesium 1.9 (1.8-2.4) mg/dL - Re-Assessments/Exams Free Text/Narrative Re-Assessment/Exam: 06/14/17 18:26 We will recheck her CBC, BMP and magnesium. 06/14/17 19:04 All her lab was normal, electrolytes are normal and magnesium is normal. I asked the patient to increase her gabapentin to 3 times a day until her neurologic consultation next week. Departure - Departure Time of Disposition: 19:35 Disposition: Home, Self-Care 01 Condition: Good Clinical Impression: Seizure-like activity, CVA, old, cognitive deficits - Discharge Information Instructions: Seizure, Adult, [id number] Referrals: PCP,None [Primary Care Provider] - Forms: ED Department Discharge Care Plan Goals: Continue your regular medications and increase gabapentin to 3 times a day until seen by neurology next week. He is very important that you get to your appointment.
[2017-06-14 19:34] VITALS: BP 123/75
== END 2017-06-14 19:36 | disposition home or self-care (01) ==
LOC: JP.ED 17:52
DX: R29.818 Other symptoms and signs involving the nervous system (principal); I69.354 Hemiplegia and hemiparesis following cerebral infarction affecting left non-dominant side; R41.89 Other symptoms and signs involving cognitive functions and awareness; I10 Essential (primary) hypertension; E78.00 Pure hypercholesterolemia, unspecified; J45.909 Unspecified asthma, uncomplicated; F41.9 Anxiety disorder, unspecified; F32.9 Major depressive disorder, single episode, unspecified; E05.90 Thyrotoxicosis, unspecified without thyrotoxic crisis or storm; F17.210 Nicotine dependence, cigarettes, uncomplicated; Z86.73 Personal history of transient ischemic attack (TIA), and cerebral infarction without residual deficits; Z88.8 Allergy status to other drugs, medicaments and biological substances; Z91.040 Latex allergy status; Z91.013 Allergy to seafood; Z79.82 Long term (current) use of aspirin; Z79.899 Other long term (current) drug therapy; Z90.49 Acquired absence of other specified parts of digestive tract
CPT/HCPCS: 36415; 80048; 83735; 85025; 99284

== ENCOUNTER 2017-06-20 18:22 | Emergency (ER) | payer MEDICARE, MEDICAID ==
[2017-06-20] MEDS ORDERED: Dexamethasone 4 MG/ML SDV IVPUSH ONE (19:20)
[2017-06-20] MEDS ORDERED: Ketorolac 30 MG/ML SDV IVPUSH ONE (19:20)
[2017-06-20] MEDS ORDERED: Sodium Chloride 0.9% 1,000 ML IV ONE (19:21)
[2017-06-20] MEDS ORDERED: Metoclopramide 10 MG/2 ML SDV IVPUSH ONE (19:21)
[2017-06-20] MEDS ORDERED: diphenhydrAMINE 50 MG/ML SDV IVPUSH ONE (19:21)
[2017-06-20] MEDS ORDERED: Sodium Chloride 0.9% 10 ML Syringe FLUSH PRN (19:22)
--- NOTE | 2017-06-20 19:24 | EDM.PDOC ---
ED HPI GENERAL MEDICAL PROBLEM - General Chief Complaint: Headache Stated Complaint: MIGRAINE Time Seen by Provider: 06/20/17 19:00 Source of Information: Reports: Patient History Limitations: Reports: No Limitations - History of Present Illness INITIAL COMMENTS - FREE TEXT/NARRATIVE: Hannah is a 52 year old female who presents to the ED today with c/o migraine headache for two hours. Patient reports her migraine is typical for her, right sided. She denies any neck stiffness or fever, she endorses mild nausea, denies any vomiting or abdominal pain. Onset: Today, Sudden Duration: Hour(s): (2) Headache Pain Score (Numeric/FACES): 9 - Related Data Allergies Allergy/AdvReac Type Severity Reaction Status Date / Time bee pollen Allergy Anaphylactic Verified 06/14/17 18:19 Shock butorphanol tartrate Allergy Rash Verified 06/14/17 18:19 [From Stadol] latex Allergy Itching Verified 06/14/17 18:19 meperidine HCl [From Demerol] Allergy Itching Verified 06/14/17 18:19 Home Meds: Home Meds Albuterol [Ventolin HFA] 2 puff INH QID PRN 06/12/14 [History] Amitriptyline HCl 50 mg PO BEDTIME 06/12/14 [History] Aspirin 325 mg PO DAILY 06/12/14 [History] Baclofen 10 mg PO TID 06/12/14 [History] Gabapentin 300 mg PO TID 06/12/14 [History] Simvastatin 20 mg PO BEDTIME 06/12/14 [History] Topiramate [Topamax] 100 mg PO BID 06/12/14 [History] Venlafaxine HCl [Venlafaxine ER] 150 mg PO QAM 06/12/14 [History] Cholecalciferol (Vitamin D3) [Vitamin D3] 2 cap PO QAM 09/05/15 [History] Potassium Bicarbonate/Cit Ac [Effer-K] 20 meq PO BID 09/03/16 [History] Thiamine HCl [B-1] 1 tab PO DAILY 09/03/16 [History] Famotidine [Take Home: Famotidine 20 MG, 3 Tab Pack] 20 mg PO DAILY 10/15/16 [ History] Ondansetron [Zofran ODT] 4 mg PO Q6H PRN #5 tab.dis 10/15/16 [Rx] SUMAtriptan Succinate [Sumatriptan Succinate] 1 tab PO BID PRN 06/02/17 [History ] Past Medical History HEENT History: Reports: Impaired Vision, Other (See Below) Other HEENT History: Top and bottom dentures Cardiovascular History: Reports: High Cholesterol, Hypertension Respiratory History: Reports: Asthma Gastrointestinal History: Reports: Chronic 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 History: Reports: Fracture Other 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 History: Left arm Neurological History: Reports: CVA, Migraines, Seizure, Other (See Below) Other Neuro History: has brace on left leg Psychiatric History: Reports: Addiction, Anxiety, Depression, Suicide Attempt Endocrine/Metabolic History: Reports: Hyperthyroidism Hematologic History: Reports: B12 Deficiency Immunologic History: Reports: Other (See Below) Other Immunologic History: hepatitis b Oncologic (Cancer) History: Reports: Cervix Dermatologic History: Reports: Other (See Below) Other Dermatologic History: dry sensitive skin - Infectious Disease History Infectious Disease History: Reports: Hepatitis B - Past Surgical History GI Surgical History: Reports: Appendectomy Other GI Surgeries/Procedures: laporoscopy Social & Family History - Family History Family Medical History: Unobtainable - Tobacco Use Smoking Status *Q: Current Every Day Smoker Years of Tobacco use: 36 Packs/Tins Daily: 0.5 Second Hand Smoke Exposure: No - Caffeine Use Caffeine Use: Reports: Coffee, Soda - Alcohol Use Days Per Week of Alcohol Use: 1 Number of Drinks Per Day: 2 Total Drinks Per Week: 2 - Recreational Drug Use Recreational Drug Use: No Drug Use in Last 12 Months: Yes Recreational Drug Type: Reports: Marijuana/Hashish Recreational Drug Use Frequency: Monthly ED ROS GENERAL - Review of Systems Review Of Systems: ROS reveals no pertinent complaints other than HPI. - Physical Exam Exam: See Below Exam Limited By: No Limitations General Appearance: Alert, WD/WN, No Apparent Distress Eye Exam: Bilateral Eye: EOMI, PERRL Head Exam: Atraumatic Neck: Normal Inspection, Supple, Non-Tender, Full Range of Motion Respiratory/Chest: No Respiratory Distress, Lungs Clear Cardiovascular: Normal Peripheral Pulses, Regular Rate, Rhythm, No Murmur GI/Abdominal: Normal Bowel Sounds, Soft, Non-Tender Neuro Exam (Abbreviated): Alert, Oriented, Other (residual left sided hemiparesis secondary to prior CVA) Extremities: Normal Inspection Psychiatric: Normal Affect Skin Exam: Warm, Dry, Intact Course - Vital Signs Last Recorded V/S: Last Vital Signs Temp 36.2 C 06/20/17 18:52 Pulse 73 06/20/17 18:52 Resp 16 06/20/17 18:52 BP 127/76 06/20/17 18:52 Pulse Ox 97 06/20/17 18:52 Hannah is a 52 year old female with a hx of CVA and residual left sided deficits as well as new onset of seizures who presents to the ED today with c/o migraine headache, right sided, 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 Patient reports her migraine presentation today is typical for her, she does not exhibit any new neuro/focal deficits on exam. Migraine cocktail given including one liter of NS, IV toradol , decadron, reglan, and benadryl with resolution of her headache. Patient was able to eat and drink here without any difficulties. Patient is stable at this time and ready to be discharged home. Reasons to return to the ED discussed, patient agreeable and discharged in stable condition. - Orders/Labs/Meds Orders: Active Orders 24 hr Category Date Time Status Peripheral IV Care [RC] . DIRECTED Care 06/20/17 19:22 Active Sodium Chloride 0.9% [Saline Flush] Med 06/20/17 19:22 Active 10 ml FLUSH ASDIRECTED PRN Peripheral IV Insertion Adult [OM.PC] Routine Oth 06/20/17 19:22 Ordered Medication Orders Sodium Chloride (Saline Flush) 10 ml FLUSH ASDIRECTED PRN PRN Reason: Keep Vein Open Meds: Medications Generic Name Dose Route Start Last Admin Trade Name Freq PRN Reason Stop Dose Admin Sodium Chloride 10 ml 06/20/17 19:22 Saline Flush FLUSH ASDIRECTED PRN Keep Vein Open Discontinued Medications Generic Name Dose Route Start Last Admin Trade Name Freq PRN Reason Stop Dose Admin Dexamethasone 10 mg 06/20/17 19:20 06/20/17 20:14 Dexamethasone IVPUSH 06/20/17 19:21 10 mg ONETIME ONE Administration Diphenhydramine HCl 25 mg 06/20/17 19:21 Benadryl IVPUSH 06/20/17 19:22 ONETIME ONE Sodium Chloride 1,000 mls @ 999 mls/hr 06/20/17 19:21 06/20/17 20:13 Normal Saline IV 06/20/17 20:21 999 mls/hr .BOLUS ONE Administration Ketorolac Tromethamine 30 mg 06/20/17 19:20 06/20/17 20:19 Toradol IVPUSH 06/20/17 19:21 30 mg ONETIME ONE Administration Metoclopramide HCl 5 mg 06/20/17 19:21 Reglan IVPUSH 06/20/17 19:22 ONETIME ONE Departure - Departure Time of Disposition: 21:30 Disposition: Home, Self-Care 01 Condition: Good Clinical Impression: Migraine - Discharge Information Instructions: Recurrent Migraine Headache, [id number] Forms: ED Department Discharge Additional Instructions: Hannah, Make sure you stay well hydrated, follow up with your primary care provider this next week. Return to the ED with any complications or worsening symptoms - My Orders Last 24 Hours: My Active Orders 06/20/17 19:22 Peripheral IV Care [RC] . DIRECTED Sodium Chloride 0.9% [Saline Flush] 10 ml FLUSH ASDIRECTED PRN Peripheral IV Insertion Adult [OM.PC] Routine - Assessment/Plan Last 24 Hours: My Active Orders 06/20/17 19:22 Peripheral IV Care [RC] . DIRECTED Sodium Chloride 0.9% [Saline Flush] 10 ml FLUSH ASDIRECTED PRN Peripheral IV Insertion Adult [OM.PC] Routine
[2017-06-20 20:49] VITALS: BP 106/73
== END 2017-06-20 21:17 | disposition home or self-care (01) ==
LOC: JP.ED 18:22
DX: G43.909 Migraine, unspecified, not intractable, without status migrainosus (principal); I10 Essential (primary) hypertension; F17.210 Nicotine dependence, cigarettes, uncomplicated; E78.00 Pure hypercholesterolemia, unspecified; J45.909 Unspecified asthma, uncomplicated; F41.9 Anxiety disorder, unspecified; F32.9 Major depressive disorder, single episode, unspecified; I69.354 Hemiplegia and hemiparesis following cerebral infarction affecting left non-dominant side; E05.90 Thyrotoxicosis, unspecified without thyrotoxic crisis or storm; Z98.890 Other specified postprocedural states; Z79.82 Long term (current) use of aspirin; Z79.899 Other long term (current) drug therapy; Z91.030 Bee allergy status; Z91.040 Latex allergy status; Z88.5 Allergy status to narcotic agent; Z88.8 Allergy status to other drugs, medicaments and biological substances
CPT/HCPCS: 96361; 96374; 96375; 99283; J1100; J1200; J1885; J2765; J7040; J7050

== ENCOUNTER 2017-08-19 15:57 | Observation (INO) | payer MEDICARE, MEDICAID ==
--- NOTE | 2017-08-19 16:59 | EDM.PDOC ---
ED HPI GENERAL MEDICAL PROBLEM - General Chief Complaint: Head Injury Stated Complaint: HEAD INJURY Time Seen by Provider: 08/19/17 16:30 Source of Information: Reports: Provider History Limitations: Reports: Altered Mental Status - History of Present Illness INITIAL COMMENTS - FREE TEXT/NARRATIVE: 52-year-old female with a long history of seizure disorder, previous strokes and polysubstance abuse had been doing well over the past 6-8 months avoiding illicit drug use. This morning she apparently fell out of her wheelchair striking the top of her head, found by a neighbor and was transported to the clinic because of lethargy and decreased mental status. She was urgently sent to the emergency room. She arrived with stable vitals but sleepy, arousable and would try to answer questions but then immediately fell asleep again. She was not able to answer questions regarding review of systems, she could not concentrate long enough. She did shake her head no when asked if she was in pain. Onset: Unknown/Unsure (Sometime this morning apparently she fell) Severity: Moderate - Related Data Allergies Allergy/AdvReac Type Severity Reaction Status Date / Time bee pollen Allergy Anaphylactic Verified 08/19/17 17:03 Shock butorphanol tartrate Allergy Rash Verified 08/19/17 17:03 [From Stadol] latex Allergy Itching Verified 08/19/17 17:03 meperidine HCl [From Demerol] Allergy Itching Verified 08/19/17 17:03 Home Meds: Home Meds Albuterol [Ventolin HFA] 2 puff INH QID PRN 06/12/14 [History] Amitriptyline HCl 50 mg PO BEDTIME 06/12/14 [History] Aspirin 325 mg PO DAILY 06/12/14 [History] Baclofen 10 mg PO TID 06/12/14 [History] Gabapentin 300 mg PO TID 06/12/14 [History] Simvastatin 20 mg PO BEDTIME 06/12/14 [History] Topiramate [Topamax] 100 mg PO BID 06/12/14 [History] Venlafaxine HCl [Venlafaxine ER] 150 mg PO QAM 06/12/14 [History] Cholecalciferol (Vitamin D3) [Vitamin D3] 2 cap PO QAM 09/05/15 [History] Potassium Bicarbonate/Cit Ac [Effer-K] 20 meq PO BID 09/03/16 [History] Thiamine HCl [B-1] 1 tab PO DAILY 09/03/16 [History] Famotidine [Take Home: Famotidine 20 MG, 3 Tab Pack] 20 mg PO DAILY 10/15/16 [ History] Ondansetron [Zofran ODT] 4 mg PO Q6H PRN #5 tab.dis 10/15/16 [Rx] SUMAtriptan Succinate [Sumatriptan Succinate] 1 tab PO BID PRN 06/02/17 [History ] Past Medical History HEENT History: Reports: Impaired Vision, Other (See Below) Other HEENT History: Top and bottom dentures Cardiovascular History: Reports: High Cholesterol, Hypertension Respiratory History: Reports: Asthma Gastrointestinal History: Reports: Chronic 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 RECORD CHANGER History: Reports: 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 History: Reports: Fracture Other 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 History: Left arm Neurological History: Reports: CVA, Migraines, Seizure, Other (See Below) Other Neuro History: has brace on left leg Psychiatric History: Reports: Addiction, Anxiety, Depression, Suicide Attempt Endocrine/Metabolic History: Reports: Hyperthyroidism Hematologic History: Reports: B12 Deficiency Immunologic History: Reports: Other (See Below) Other Immunologic History: hepatitis b Oncologic (Cancer) History: Reports: Cervix Dermatologic History: Reports: Other (See Below) Other Dermatologic History: dry sensitive skin - Infectious Disease History Infectious Disease History: Reports: Chicken Pox, Hepatitis B - Past Surgical History GI Surgical History: Reports: Appendectomy Other GI Surgeries/Procedures: laporoscopy Social & Family History - Family History Family Medical History: Unobtainable - Tobacco Use Smoking Status *Q: Current Every Day Smoker Years of Tobacco use: 36 Packs/Tins Daily: 0.5 Second Hand Smoke Exposure: No - Caffeine Use Caffeine Use: Reports: Coffee, Soda - Alcohol Use Days Per Week of Alcohol Use: 1 Number of Drinks Per Day: 2 Total Drinks Per Week: 2 - Recreational Drug Use Recreational Drug Use: Yes Drug Use in Last 12 Months: Yes Recreational Drug Type: Reports: Marijuana/Hashish Recreational Drug Use Frequency: Monthly ED ROS GENERAL - Review of Systems Review Of Systems: Unable To Obtain ED EXAM, HEAD INJURY - Physical Exam Exam: See Below Exam Limited By: Altered Mental Status General Appearance: Lethargic Head: Atraumatic (No evidence of trauma seen) Eyes: Bilateral Eye: EOMI (EOMs were intact that she could not focus and tended to look back and forth when talked to) Throat/Mouth: Other (Edentulous, dentures) Neck: Non-Tender Respiratory: No Respiratory Distress, Lungs Clear Cardiovascular: Regular Rate, Rhythm Extremities: Other (Very thin somewhat cachectic extremities, no deformities) Neurologic: Other (No obvious asymmetry). No: Oriented x 3, Facial Droop - [place] Coma Score Best Eye Response ([place]): (3) Open to Voice Best Verbal Response ([place]): (4) Confused Conversation Best Motor Response ([place]): (5) Localizes to Pain [place] Total: 12 Course - Vital Signs Last Recorded V/S: Last Vital Signs Temp 96.7 F 08/20/17 07:53 Pulse 54 L 08/20/17 07:53 Resp 16 08/20/17 07:53 BP 92/67 08/20/17 07:53 Pulse Ox 97 08/20/17 07:53 - Orders/Labs/Meds Orders: Active Orders 24 hr Category Date Time Status Head wo Cont [CT] Stat Exams 08/19/17 16:35 Taken Medication Orders Acetaminophen (Tylenol) 650 mg PO Q4H PRN PRN Reason: Pain (Mild 1-3)/fever Albuterol (Proventil Neb Soln) 2.5 mg NEB Q4H PRN PRN Reason: Shortness Of Breath/wheezing Albuterol/Ipratropium (Duoneb 3.0-0.5 Mg/3 Ml) 3 ml NEB QID PRN PRN Reason: Shortness Of Breath/wheezing Bisacodyl (Dulcolax) 5 mg PO DAILY PRN PRN Reason: 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 Docusate Sodium (Colace) 100 mg PO BID PRN PRN Reason: 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 Haloperidol Lactate (Haldol) 1 mg IVPUSH Q4H PRN PRN Reason: Agitation Lactated Ringer's (Ringers, Lactated) 1,000 mls @ 125 mls/hr IV ASDIRECTED [facility] Last Admin: 08/20/17 05:57 Dose: 125 mls/hr Infusion: 08/20/17 04:55 Dose: 125 mls/hr Admin: 08/19/17 20:55 Dose: 125 mls/hr Ketorolac Tromethamine (Toradol) 30 mg IVPUSH Q6H PRN PRN Reason: Pain (moderate 4-6) Lorazepam (Ativan) 1 - 2 mg IVPUSH Q2H PRN PRN Reason: Agitation Morphine Sulfate (Morphine) 2 mg IVPUSH Q2H PRN PRN Reason: Pain (severe 7-10) Ondansetron HCl (Zofran Odt) 4 mg PO Q6H PRN PRN Reason: Nausea able to take PO Ondansetron HCl (Zofran) 4 mg IV Q4H PRN PRN Reason: Nausea/Vomiting Oxycodone HCl (Oxycodone) 5 mg PO Q4H PRN PRN Reason: Pain (moderate 4-6) Topiramate (Topamax) 100 mg PO BID [facility] Last Admin: 08/19/17 22:31 Dose: 100 mg Venlafaxine HCl ([facility]ffe[facility] Xr) [facility] [place] Laboratory Tests 08/19/17 08/19/17 08/19/17 Range/Units 16:50 16:50 16:50 WBC 7.8 (4.5-11.0) K/uL RBC 4.76 (3.30-5.50) M/uL Hgb 14.1 (12.0-15.0) g/dL Hct 42.1 (36.0-48.0) % MCV 88 (80-98) fL MCH 30 (27-31) pg MCHC 34 (32-36) % Plt Count 243 (150-400) K/uL Neut % (Auto) 53 (36-66) % Lymph % (Auto) 33 (24-44) % [place] % (Auto) 11 H (2-6) % Eos % (Auto) 3 (2-4) % Baso % (Auto) 1 (0-1) % Sodium 142 (140-148) mmol/L Potassium 3.7 (3.6-5.2) mmol/L Chloride 109 H (100-108) mmol/L Carbon Dioxide 24 (21-32) mmol/L Anion Gap 12.7 (5.0-14.0) mmol/L BUN 7 (7-18) mg/dL Creatinine 0.8 (0.6-1.0) mg/dL Est Cr Clr Drug Dosing 68.05 mL/min Estimated GFR (MDRD) > 60 (>60) Glucose 86 (74-106) mg/dL Calcium 9.1 (8.5-10.1) mg/dL Total Bilirubin 0.3 (0.2-1.0) mg/dL AST 15 (15-37) U/L ALT 20 (12-78) U/L Alkaline Phosphatase 122 H (46-116) U/L Ammonia 28 (11-32) mmol/L Total Protein 7.7 (6.4-8.2) g/dL Albumin 3.9 (3.4-5.0) g/dL Globulin 3.8 H (2.3-3.5) g/dL Albumin/Globulin Ratio 1.0 L (1.2-2.2) Urine Color Urine Appearance Urine pH (4.5-8.0) Ur Specific [place] (1.008-1.030) Urine Protein (NEGATIVE) mg/dL Urine Glucose (UA) (NEGATIVE) mg/dL Urine Ketones (NEGATIVE) mg/dL Urine Occult Blood (NEGATIVE) Urine Nitrite (NEGATIVE) Urine Bilirubin (NEGATIVE) Urine Urobilinogen (NORMAL) mg/dL Ur Leukocyte Esterase (NEGATIVE) Urine RBC (0-5) Urine WBC (0-5) Ur Epithelial Cells Amorphous Sediment Urine Bacteria Urine Mucus Urine Opiates Screen (NEGATIVE) Ur Oxycodone Screen (NEGATIVE) Urine Methadone Screen (NEGATIVE) Ur Propoxyphene Screen (NEGATIVE) Ur Barbiturates Screen (NEGATIVE) Ur Tricyclics Screen (NEGATIVE) Ur Phencyclidine Scrn (NEGATIVE) Ur Amphetamine Screen (NEGATIVE) U Methamphetamines Scrn (NEGATIVE) Urine MDMA Screen (NEGATIVE) U Benzodiazepines Scrn (NEGATIVE) U Cocaine Metab Screen (NEGATIVE) U Marijuana (THC) Screen (NEGATIVE) Ethyl Alcohol mg/dL 08/19/17 08/19/17 08/19/17 Range/Units 16:50 17:22 17:23 WBC (4.5-11.0) K/uL RBC (3.30-5.50) M/uL Hgb (12.0-15.0) g/dL Hct (36.0-48.0) % MCV (80-98) fL MCH (27-31) pg MCHC (32-36) % Plt Count (150-400) K/uL Neut % (Auto) (36-66) % Lymph % (Auto) (24-44) % [place] % (Auto) (2-6) % Eos % (Auto) (2-4) % Baso % (Auto) (0-1) % Sodium (140-148) mmol/L Potassium (3.6-5.2) mmol/L Chloride (100-108) mmol/L Carbon Dioxide (21-32) mmol/L Anion Gap (5.0-14.0) mmol/L BUN (7-18) mg/dL Creatinine (0.6-1.0) mg/dL Est Cr Clr Drug Dosing mL/min Estimated GFR (MDRD) (>60) Glucose (74-106) mg/dL Calcium (8.5-10.1) mg/dL Total Bilirubin (0.2-1.0) mg/dL AST (15-37) U/L ALT (12-78) U/L Alkaline Phosphatase (46-116) U/L Ammonia (11-32) mmol/L Total Protein (6.4-8.2) g/dL Albumin (3.4-5.0) g/dL Globulin (2.3-3.5) g/dL Albumin/Globulin Ratio (1.2-2.2) Urine Color Yellow Urine Appearance Clear Urine pH 6.0 (4.5-8.0) Ur Specific [place] 1.010 (1.008-1.030) Urine Protein Negative (NEGATIVE) mg/dL Urine Glucose (UA) Normal (NEGATIVE) mg/dL Urine Ketones Negative (NEGATIVE) mg/dL Urine Occult Blood Negative (NEGATIVE) Urine Nitrite Negative (NEGATIVE) Urine Bilirubin Negative (NEGATIVE) Urine Urobilinogen Normal (NORMAL) mg/dL Ur Leukocyte Esterase Negative (NEGATIVE) Urine RBC 0-5 (0-5) Urine WBC Not seen (0-5) Ur Epithelial Cells Few Amorphous Sediment Not seen Urine Bacteria Not seen Urine Mucus Not seen Urine Opiates Screen Positive H (NEGATIVE) Ur Oxycodone Screen Negative (NEGATIVE) Urine Methadone Screen Negative (NEGATIVE) Ur Propoxyphene Screen Negative (NEGATIVE) Ur Barbiturates Screen Negative (NEGATIVE) Ur Tricyclics Screen Positive H (NEGATIVE) Ur Phencyclidine Scrn Positive H (NEGATIVE) Ur Amphetamine Screen Positive H (NEGATIVE) U Methamphetamines Scrn Positive H (NEGATIVE) Urine MDMA Screen Negative (NEGATIVE) U Benzodiazepines Scrn Negative (NEGATIVE) U Cocaine Metab Screen Negative (NEGATIVE) U Marijuana (THC) Screen Negative (NEGATIVE) Ethyl Alcohol < 3 mg/dL Meds: Medications Generic Name Dose Route Start Last Admin Trade Name Collin PRN Reason Stop Dose Admin Acetaminophen 650 mg 08/19/17 20:28 Tylenol PO Q4H PRN Pain (Mild 1-3)/fever Albuterol 2.5 mg 08/19/17 20:28 Proventil Neb Soln NEB Q4H PRN Shortness Of Breath/wheezing Albuterol/Ipratropium 3 ml 08/19/17 20:28 Duoneb 3.0-0.5 Mg/3 Ml NEB QID PRN Shortness Of Breath/wheezing Bisacodyl 5 mg 08/19/17 20:28 Dulcolax PO DAILY PRN 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 Docusate Sodium 100 mg 08/19/17 20:28 Colace PO BID PRN 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 Haloperidol Lactate 1 mg 08/19/17 20:28 Haldol IVPUSH Q4H PRN Agitation Lactated Ringer's 1,000 mls @ 125 mls/hr 08/19/17 20:28 08/20/17 05:57 Ringers, Lactated IV 125 mls/hr ASDIRECTED [facility] Administration Ketorolac Tromethamine 30 mg 08/19/17 20:28 Toradol IVPUSH Q6H PRN Pain (moderate 4-6) Lorazepam 1 - 2 mg 08/19/17 20:28 Ativan IVPUSH Q2H PRN Agitation Morphine Sulfate 2 mg 08/19/17 20:28 Morphine IVPUSH Q2H PRN Pain (severe 7-10) Ondansetron HCl 4 mg 08/19/17 20:28 Zofran Odt PO Q6H PRN Nausea able to take PO Ondansetron HCl 4 mg 08/19/17 20:28 Zofran IV Q4H PRN Nausea/Vomiting Oxycodone HCl 5 mg 08/19/17 20:28 Oxycodone PO Q4H PRN Pain (moderate 4-6) Topiramate 100 mg 08/19/17 21:00 08/19/17 22:31 Topamax PO 100 mg BID [facility] Administration Venlafaxine HCl 150 mg 08/20/17 09:00 Effexor Xr PO QAM [facility] Discontinued Medications Generic Name Dose Route Start Last Admin Trade Name Collin PRN Reason Stop Dose Admin Topiramate Confirm 08/19/17 22:00 08/20/17 07:28 Topamax Administered 08/19/17 22:01 Not Given Dose 100 mg .ROUTE .STK-MED ONE - Re-Assessments/Exams Free Text/Narrative Re-Assessment/Exam: 08/19/17 16:58 Patient was sent to CT scan for a noncontrast head CT. CBC CMP EtOH and serum ammonia were obtained with the intent to obtain a urine drug screen when she returned from CT if the CT showed no acute findings. 08/19/17 17:28 CBC, CMP, ammonia level and EtOH were all basically normal. CT of the head showed no acute findings. Patient did begin improving somewhat. A urine drug screen by a mini catheter was obtained. 08/19/17 17:55 Urine drug screen is positive for opiates, amphetamine and methamphetamine. Patient is not symptomatic in that need Narcan. She'll likely steadily improve overnight and may be more forthcoming on her history tomorrow. Departure - Departure Time of Disposition: 20:31 Disposition: Admitted As Inpatient 66 Condition: Fair Clinical Impression: Polysubstance dependence including opioid type drug with complication, episodic abuse Mental status change Qualifiers: Altered mental status type: somnolence Qualified Code(s): R40.0 - Somnolence - Discharge Information - My Orders Last 24 Hours: My Active Orders 08/19/17 16:35 Head wo Cont [CT] Stat - Assessment/Plan Last 24 Hours: My Active Orders 08/19/17 16:35 Head wo Cont [CT] Stat
--- NOTE | 2017-08-19 20:09 | PCM.HP ---
H&P History of Present Illness - General Date of Service: 08/19/17 Admit Problem/Dx: Admission Diagnosis/Problem Admission Diagnosis/Problem Polysubstance dependence including opioid type drug with complication, episodic abuse Source of Information: Provider, RN Notes Reviewed History Limitations: Reports: Intoxication (polysubstance drugs ) - History of Present Illness Initial Comments - Free Text/Narative: - History of Present Illness INITIAL COMMENTS - FREE TEXT/NARRATIVE: 52-year-old female with a long history of seizure disorder, previous strokes and polysubstance abuse had been doing well over the past 6-8 months avoiding illicit drug use. This morning she apparently fell out of her wheelchair striking the top of her head, found by a neighbor and was transported to the clinic because of lethargy and decreased mental status. She was urgently sent to the emergency room. She arrived with stable vitals but sleepy, arousable and would try to answer questions but then immediately fell asleep again. She was not able to answer questions regarding review of systems, she could not concentrate long enough. She did shake her head no when asked if she was in pain. Onset: Unknown/Unsure (Sometime this morning apparently she fell) Severity: Moderate 08/19/17 16:58 Patient was sent to CT scan for a noncontrast head CT. CBC CMP EtOH and serum ammonia were obtained with the intent to obtain a urine drug screen when she returned from CT if the CT showed no acute findings. 08/19/17 17:28 CBC, CMP, ammonia level and EtOH were all basically normal. CT of the head showed no acute findings. Patient did begin improving somewhat. A urine drug screen by a mini catheter was obtained. 08/19/17 17:55 Urine drug screen is positive for opiates, amphetamine and methamphetamine. Patient is not symptomatic in that need Narcan. She'll likely steadily improve overnight and may be more forthcoming on her history tomorrow. Disposition: Admitted As Inpatient 66 Condition: Fair Clinical Impression: Polysubstance dependence including opioid type drug with complication, episodic abuse head injury Mental status change Qualifiers: Altered mental status type: somnolence Qualified Code(s): R40.0 - Somnolence Care Plan Goals: Patient was discussed with Dr. Leal of the hospitalist service, will be admitted for observation of her mental status overnight and monitored for improvement. Onset of Symptoms: Reports: Today Symptom Onset Date: 08/19/17 Duration of Symptoms: Reports: Hour(s): Location: Reports: Generalized (lethegry) Improves with: Reports: None Worsens with: Reports: None Context: Reports: Other (polysubstance dependence including opioid type drug with complication) Associated Symptoms: Reports: Confusion, Weakness - Related Data Allergies/Adverse Reactions: Allergies Allergy/AdvReac Type Severity Reaction Status Date / Time bee pollen Allergy Anaphylactic Verified 08/19/17 17:03 Shock butorphanol tartrate Allergy Rash Verified 08/19/17 17:03 [From Stadol] latex Allergy Itching Verified 08/19/17 17:03 meperidine HCl [From Demerol] Allergy Itching Verified 08/19/17 17:03 Home Medications: Home Meds Albuterol [Ventolin HFA] 2 puff INH QID PRN 06/12/14 [History] Amitriptyline HCl 50 mg PO BEDTIME 06/12/14 [History] Aspirin 325 mg PO DAILY 06/12/14 [History] Baclofen 10 mg PO TID 06/12/14 [History] Gabapentin 300 mg PO TID 06/12/14 [History] Simvastatin 20 mg PO BEDTIME 06/12/14 [History] Topiramate [Topamax] 100 mg PO BID 06/12/14 [History] Venlafaxine HCl [Venlafaxine ER] 150 mg PO QAM 06/12/14 [History] Cholecalciferol (Vitamin D3) [Vitamin D3] 2 cap PO QAM 09/05/15 [History] Potassium Bicarbonate/Cit Ac [Effer-K] 20 meq PO BID 09/03/16 [History] Thiamine HCl [B-1] 1 tab PO DAILY 09/03/16 [History] Famotidine [Take Home: Famotidine 20 MG, 3 Tab Pack] 20 mg PO DAILY 10/15/16 [ History] Ondansetron [Zofran ODT] 4 mg PO Q6H PRN #5 tab.dis 10/15/16 [Rx] SUMAtriptan Succinate [Sumatriptan Succinate] 1 tab PO BID PRN 06/02/17 [History ] Past Medical History HEENT History: Reports: Impaired Vision, Other (See Below) Other HEENT History: Top and bottom dentures Cardiovascular History: Reports: High Cholesterol, Hypertension Respiratory History: Reports: Asthma Gastrointestinal History: Reports: Chronic 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 PHYSICAL METEOROLOGIST History: Reports: 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 History: Reports: Fracture Other 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 History: Left arm Neurological History: Reports: CVA, Migraines, Seizure, Other (See Below) Other Neuro History: has brace on left leg Psychiatric History: Reports: Addiction, Anxiety, Depression, Suicide Attempt Endocrine/Metabolic History: Reports: Hyperthyroidism Hematologic History: Reports: B12 Deficiency Immunologic History: Reports: Other (See Below) Other Immunologic History: hepatitis b Oncologic (Cancer) History: Reports: Cervix Dermatologic History: Reports: Other (See Below) Other Dermatologic History: dry sensitive skin - Infectious Disease History Infectious Disease History: Reports: Chicken Pox, Hepatitis B - Past Surgical History GI Surgical History: Reports: Appendectomy Other GI Surgeries/Procedures: laporoscopy Social & Family History - Family History Family Medical History: Unobtainable - Tobacco Use Smoking Status *Q: Current Every Day Smoker Years of Tobacco use: 36 Packs/Tins Daily: 0.5 Second Hand Smoke Exposure: No - Caffeine Use Caffeine Use: Reports: Coffee, Soda - Alcohol Use Days Per Week of Alcohol Use: 1 Number of Drinks Per Day: 2 Total Drinks Per Week: 2 - Recreational Drug Use Recreational Drug Use: Yes Drug Use in Last 12 Months: Yes Recreational Drug Type: Reports: Marijuana/Hashish Recreational Drug Use Frequency: Monthly H&P Review of Systems - Review of Systems: Review Of Systems: Unable To Obtain General: Reports: Other (sleepy) HEENT: Reports: Other (dentures upper plate, lower plate absent) Neurological: Reports: Confusion, Pre-Existing Deficit (hx of CVA with left sided impairment. left long leg AFO in place.) Exam - Exam Exam: See Below - Vital Signs Vital Signs: Last Vital Signs Temp 35.9 C 08/19/17 16:12 Pulse 72 08/19/17 18:27 Resp 15 08/19/17 18:27 BP 111/74 08/19/17 18:27 Pulse Ox 99 08/19/17 18:27 Weight: 52.4 kg - Exam General: Sedated, Lethargic HEENT: Other (PERRL, pupil size 3mm) Neck: Supple, Trachea Midline Lungs: Clear to Auscultation, Normal Respiratory Effort Cardiovascular: Regular Rate, Regular Rhythm, Normal S1, Normal S2 GI/Abdominal Exam: Normal Bowel Sounds, Soft, Non-Tender, No Organomegaly, No Distention, No Abnormal Bruit, No Mass, Pelvis Stable (Female) Exam: Deferred Rectal (Female) Exam: Deferred Back Exam: Normal Inspection Extremities: Normal Inspection, Non-Tender, No Pedal Edema, Normal Capillary Refill, Other (left lower extremity with long AFO) Peripheral Pulses: 2+: Radial (L), Radial (R), Dorsalis Pedis (L), Dorsalis Pedis (R) Skin: Warm, Dry, Intact Neuro Extensive - Mental Status: Opens Eyes to Commands, Slow Response to Commands Psychiatric: Other (sleepy, awakes to voice. no distress is noted.) - Patient Data Lab Results Last 24 hrs: Laboratory Results - last 24 hr 08/19/17 08/19/17 08/19/17 Range/Units 16:50 16:50 16:50 WBC 7.8 (4.5-11.0) K/uL RBC 4.76 (3.30-5.50) M/uL Hgb 14.1 (12.0-15.0) g/dL Hct 42.1 (36.0-48.0) % MCV 88 (80-98) fL MCH 30 (27-31) pg MCHC 34 (32-36) % Plt Count 243 (150-400) K/uL Neut % (Auto) 53 (36-66) % Lymph % (Auto) 33 (24-44) % [place] % (Auto) 11 H (2-6) % Eos % (Auto) 3 (2-4) % Baso % (Auto) 1 (0-1) % Sodium 142 (140-148) mmol/L Potassium 3.7 (3.6-5.2) mmol/L Chloride 109 H (100-108) mmol/L Carbon Dioxide 24 (21-32) mmol/L Anion Gap 12.7 (5.0-14.0) mmol/L BUN 7 (7-18) mg/dL Creatinine 0.8 (0.6-1.0) mg/dL Est Cr Clr Drug Dosing 68.05 mL/min Estimated GFR (MDRD) > 60 (>60) Glucose 86 (74-106) mg/dL Calcium 9.1 (8.5-10.1) mg/dL Total Bilirubin 0.3 (0.2-1.0) mg/dL AST 15 (15-37) U/L ALT 20 (12-78) U/L Alkaline Phosphatase 122 H (46-116) U/L Ammonia 28 (11-32) mmol/L Total Protein 7.7 (6.4-8.2) g/dL Albumin 3.9 (3.4-5.0) g/dL Globulin 3.8 H (2.3-3.5) g/dL Albumin/Globulin Ratio 1.0 L (1.2-2.2) Urine Color Urine Appearance Urine pH (4.5-8.0) Ur Specific [place] (1.008-1.030) Urine Protein (NEGATIVE) mg/dL Urine Glucose (UA) (NEGATIVE) mg/dL Urine Ketones (NEGATIVE) mg/dL Urine Occult Blood (NEGATIVE) Urine Nitrite (NEGATIVE) Urine Bilirubin (NEGATIVE) Urine Urobilinogen (NORMAL) mg/dL Ur Leukocyte Esterase (NEGATIVE) Urine RBC (0-5) Urine WBC (0-5) Ur Epithelial Cells Amorphous Sediment Urine Bacteria Urine Mucus Urine Opiates Screen (NEGATIVE) Ur Oxycodone Screen (NEGATIVE) Urine Methadone Screen (NEGATIVE) Ur Propoxyphene Screen (NEGATIVE) Ur Barbiturates Screen (NEGATIVE) Ur Tricyclics Screen (NEGATIVE) Ur Phencyclidine Scrn (NEGATIVE) Ur Amphetamine Screen (NEGATIVE) U Methamphetamines Scrn (NEGATIVE) Urine MDMA Screen (NEGATIVE) U Benzodiazepines Scrn (NEGATIVE) U Cocaine Metab Screen (NEGATIVE) U Marijuana (THC) Screen (NEGATIVE) Ethyl Alcohol mg/dL 08/19/17 08/19/17 08/19/17 Range/Units 16:50 17:22 17:23 WBC (4.5-11.0) K/uL RBC (3.30-5.50) M/uL Hgb (12.0-15.0) g/dL Hct (36.0-48.0) % MCV (80-98) fL MCH (27-31) pg MCHC (32-36) % Plt Count (150-400) K/uL Neut % (Auto) (36-66) % Lymph % (Auto) (24-44) % [place] % (Auto) (2-6) % Eos % (Auto) (2-4) % Baso % (Auto) (0-1) % Sodium (140-148) mmol/L Potassium (3.6-5.2) mmol/L Chloride (100-108) mmol/L Carbon Dioxide (21-32) mmol/L Anion Gap (5.0-14.0) mmol/L BUN (7-18) mg/dL Creatinine (0.6-1.0) mg/dL Est Cr Clr Drug Dosing mL/min Estimated GFR (MDRD) (>60) Glucose (74-106) mg/dL Calcium (8.5-10.1) mg/dL Total Bilirubin (0.2-1.0) mg/dL AST (15-37) U/L ALT (12-78) U/L Alkaline Phosphatase (46-116) U/L Ammonia (11-32) mmol/L Total Protein (6.4-8.2) g/dL Albumin (3.4-5.0) g/dL Globulin (2.3-3.5) g/dL Albumin/Globulin Ratio (1.2-2.2) Urine Color Yellow Urine Appearance Clear Urine pH 6.0 (4.5-8.0) Ur Specific [place] 1.010 (1.008-1.030) Urine Protein Negative (NEGATIVE) mg/dL Urine Glucose (UA) Normal (NEGATIVE) mg/dL Urine Ketones Negative (NEGATIVE) mg/dL Urine Occult Blood Negative (NEGATIVE) Urine Nitrite Negative (NEGATIVE) Urine Bilirubin Negative (NEGATIVE) Urine Urobilinogen Normal (NORMAL) mg/dL Ur Leukocyte Esterase Negative (NEGATIVE) Urine RBC 0-5 (0-5) Urine WBC Not seen (0-5) Ur Epithelial Cells Few Amorphous Sediment Not seen Urine Bacteria Not seen Urine Mucus Not seen Urine Opiates Screen Positive H (NEGATIVE) Ur Oxycodone Screen Negative (NEGATIVE) Urine Methadone Screen Negative (NEGATIVE) Ur Propoxyphene Screen Negative (NEGATIVE) Ur Barbiturates Screen Negative (NEGATIVE) Ur Tricyclics Screen Positive H (NEGATIVE) Ur Phencyclidine Scrn Positive H (NEGATIVE) Ur Amphetamine Screen Positive H (NEGATIVE) U Methamphetamines Scrn Positive H (NEGATIVE) Urine MDMA Screen Negative (NEGATIVE) U Benzodiazepines Scrn Negative (NEGATIVE) U Cocaine Metab Screen Negative (NEGATIVE) U Marijuana (THC) Screen Negative (NEGATIVE) Ethyl Alcohol < 3 mg/dL Result Diagrams: 08/19/17 16:50 08/19/17 16:50 *Q Meaningful Use (ADM) - VTE *Q VTE Criteria *Q: - Stroke *Q Stroke Criteria *Q: - AMI *Q AMI Criteria *Q: - Problem List (1) Head injury SNOMED Code(s): 92379141 ICD Code: S09.90XA - UNSPECIFIED INJURY OF HEAD, INITIAL ENCOUNTER Status: Acute Priority: Low Current Visit: Yes Qualifiers: Encounter type: initial encounter Qualified Code(s): S09.90XA - Unspecified injury of head, initial encounter (2) Polysubstance dependence including opioid type drug with complication, episodic abuse SNOMED Code(s): 660638484 ICD Code: F11.229 - OPIOID DEPENDENCE WITH INTOXICATION, UNSPECIFIED Status : Acute Priority: High Current Visit: Yes Problem List Initiated/Reviewed/Updated: Yes Orders Last 24hrs: Active Orders 24 hr Category Date Time Status Patient Status Manage Transfer [TRANSFER] Routine ADT 08/19/17 19:38 Ordered Head wo Cont [CT] Stat Exams 08/19/17 16:35 Taken Resuscitation Status Routine Resus Stat 08/19/17 19:41 Ordered Assessment/Plan Comment:: ASSESSMENT / PLAN 52-year-old female with a long history of seizure disorder, previous strokes and polysubstance abuse had been doing well over the past 6-8 months avoiding illicit drug use. This morning she apparently fell out of her wheelchair striking the top of her head, found by a neighbor and was transported to the clinic because of lethargy and decreased mental status. She was urgently sent to the emergency room. She arrived with stable vitals but sleepy, arousable and would try to answer questions but then immediately fell asleep again. She was not able to answer questions regarding review of systems, she could not concentrate long enough. She did shake her head no when asked if she was in pain. Onset: Unknown/Unsure (Sometime this morning apparently she fell) Severity: Moderate Imaging; Head CT non contrast; showed no acute finding Lab; CBC, CMP, ETOH, serum ammonia, drug screen: CBC, CMP, ammonia level and EtOH were all basically normal. Urine drug screen is positive for opiates, amphetamine and methamphetamine. Patient is not symptomatic in that need Narcan. She'll likely steadily improve overnight and may be more forthcoming on her history tomorrow. Plan: Head Injury; pre-existing condition, hx of CVA with her left sided impairment -Admit to [address] [place] [address] Observation -Telemetry -Neuro check every 4 hours and prn -IV fluids for rehydration NS at 125 mL per hour -And a.m. labs: CBC, BMP Polysubstance Drug abuse -monitor over night -vital signs every 4 hours -Ativan 1 mg IV every 2 hours as needed for agitation -Haldol 1 mg IV every 4 hours as needed for agitation Maintenance issues -Orders home meds: on hold til wakes up more -Nutrition: Regular diet -[place] catheter not indicated at this time -DVT: compression stocking -GI Prophalaxis; Protonix 40mg daily CODE STATUS: Full Admission status: Admit to Observation -I expect this patient to stay less than 24 hours, not to exceed 96 hours for evaluation and management of this problem. Disposition;home with family Primary care provider: Dr. Marta Powell Hospitalist: Dr. Leal
[2017-08-19] MEDS ORDERED: Ketorolac 30 MG/ML SDV IVPUSH PRN (20:28)
[2017-08-19] MEDS ORDERED: oxyCODONE 5 MG Tab PO PRN (20:28)
[2017-08-19] MEDS ORDERED: Haloperidol Lactate 5 MG/ML SDV IVPUSH PRN (20:28)
[2017-08-19] MEDS ORDERED: LORazepam 2 MG/ML MDV IVPUSH PRN (20:28)
[2017-08-19] MEDS ORDERED: Ondansetron 4 MG Tab.DIS PO PRN (20:28)
[2017-08-19] MEDS ORDERED: Ondansetron 4 MG/2 ML SDV IV PRN (20:28)
[2017-08-19] MEDS ORDERED: Docusate Sodium 100 MG Cap PO PRN (20:28)
[2017-08-19] MEDS ORDERED: Bisacodyl 5 MG Tab PO PRN (20:28)
[2017-08-19] MEDS ORDERED: Acetaminophen 325 MG Tab PO PRN (20:28)
[2017-08-19] MEDS ORDERED: Morphine 2 MG/ML Syringe IVPUSH PRN (20:28)
[2017-08-19] MEDS ORDERED: Albuterol 0.083% 2.5 MG/3 ML Neb Soln NEB PRN (20:28)
[2017-08-19] MEDS ORDERED: Albuterol/Ipratropium 3.0-0.5 MG/3 ML Neb Soln NEB PRN (20:28)
[2017-08-19] MEDS: Lactated Ringers 1,000 ML IV SCH (20:55)
[2017-08-19] MEDS: Topiramate 100 MG Tab PO SCH ×2 (22:31→22:32)
[2017-08-19] MEDS: Topiramate 25 MG Tab ONE (22:31)
[2017-08-20] MEDS: Lactated Ringers 1,000 ML IV SCH (05:57)
[2017-08-20] MEDS: Topiramate 25 MG Tab ONE (07:28)
[2017-08-20 07:56] VITALS: BP 92/67
[2017-08-20] MEDS ORDERED: Venlafaxine 75 MG Cap.ER PO SCH (09:00)
[2017-08-20] MEDS: Topiramate 100 MG Tab PO SCH (10:10)
--- NOTE | 2017-08-20 10:28 | PCM.DCSUM1 ---
Discharge Summary - Hospital Course Brief History: 52-year-old female with history of cerebrovascular disease and chemical dependency issues who was found on the floor by her neighbor. She was very lethargic and was brought in for evaluation. - Discharge Data Discharge Date: 08/20/17 Discharge Disposition: Home, Self-Care 01 Condition: Fair - Discharge Diagnosis/Problem(s) (1) Polysubstance dependence including opioid type drug with complication, episodic abuse SNOMED Code(s): 098601287 ICD Code: F11.229 - OPIOID DEPENDENCE WITH INTOXICATION, UNSPECIFIED Status : Acute Priority: High - Patient Summary/Data Consults: Consultations 08/19/17 20:28 Consult to Case Management [CONS] Routine Comment: Physician Instructions: Quantity: Reason for Consult: may need treatment or assisted living til recovered OT Evaluation and Treatment [CONS] Routine Please Evaluate and Treat. OT Reason for Consult: Discharge Planning This query below is only for informational purposes and is not editable. Hospital Course: Hannah was brought to the emergency room for evaluation after she was found on the floor lethargic. Laboratory workup in the emergency room was unrevealing and her vitals were stable. Patient was stable other than being very lethargic and sleepy. Urine drug screen did come back positive for opiates as well as methamphetamines. She was admitted to the hospital for observation and monitoring to ensure that she remains stable and woke up from her drug ingestion /washout. There were no acute events overnight and neuro checks were stable. The morning after admission she is much more alert and interactive. She reports that she feels back to her baseline. She does report that she's not sure how methamphetamine would've gotten her system though she says maybe I was in a house where was present. She does not endorse using illicit substances. She is interested in discharged home though she does allude that maybe it's not safe. She is trying to get hold of a friend to stay with him for a day or 2. She does have some contacts at the [facility] who may be helpful. Clinically she is safe for discharge from the hospital at this time. - Patient Instructions Diet: Regular Diet as Tolerated Activity: As Tolerated Showering/Bathing: May Shower Notify Provider of: Fever, Increased Pain, Nausea and/or Vomiting Other/Special Instructions: 1. You were in the hospital for observation after an episode of decreased level of consciousness. I suspect this was related to the use of multiple drugs including opiates and methamphetamines which both showed up in your urine drug screen. You have improved without significant intervention overnight and no longer need close monitoring. If you desire assistance with treatment or treatment options for your substance use difficulties please contact the hospital or your primary care provider at the clinic. - Discharge Plan Home Medications: Home Meds Albuterol [Ventolin HFA] 2 puff INH QID PRN 06/12/14 [History] Amitriptyline HCl 50 mg PO BEDTIME 06/12/14 [History] Aspirin 325 mg PO DAILY 06/12/14 [History] Baclofen 10 mg PO TID 06/12/14 [History] Gabapentin 300 mg PO TID 06/12/14 [History] Simvastatin 20 mg PO BEDTIME 06/12/14 [History] Topiramate [Topamax] 100 mg PO BID 06/12/14 [History] Venlafaxine HCl [Venlafaxine ER] 150 mg PO QAM 06/12/14 [History] Cholecalciferol (Vitamin D3) [Vitamin D3] 2 cap PO QAM 09/05/15 [History] Potassium Bicarbonate/Cit Ac [Effer-K] 20 meq PO BID 09/03/16 [History] Thiamine HCl [B-1] 1 tab PO DAILY 09/03/16 [History] Famotidine [Take Home: Famotidine 20 MG, 3 Tab Pack] 20 mg PO DAILY 10/15/16 [ History] Ondansetron [Zofran ODT] 4 mg PO Q6H PRN #5 tab.dis 10/15/16 [Rx] SUMAtriptan Succinate [Sumatriptan Succinate] 1 tab PO BID PRN 06/02/17 [History ] Patient Handouts: Stimulant Use Disorder-Methamphetamines Referrals: Marta Powell MD [Primary Care Provider] - (f/u as needed) - Discharge Summary/Plan Comment DC Time >30 min.: No (25) - Patient Data Vitals - Most Recent: Last Vital Signs Temp 35.9 C 08/20/17 07:53 Pulse 54 L 08/20/17 07:53 Resp 16 08/20/17 07:53 BP 92/67 08/20/17 07:53 Pulse Ox 97 08/20/17 07:53 Weight - Most Recent: 52.4 kg I&O - Last 24 hours: Intake & Output 08/19/17 08/20/17 08/20/17 22:59 06:59 14:59 Intake Total 881 480 Balance 881 480 Lab Results - Last 24 hrs: Laboratory Results - last 24 hr 08/20/17 08/20/17 Range/Units 04:34 04:34 WBC 6.4 (4.5-11.0) K/uL RBC 4.30 (3.30-5.50) M/uL Hgb 12.6 (12.0-15.0) g/dL Hct 38.6 (36.0-48.0) % MCV 90 (80-98) fL MCH 29 (27-31) pg MCHC 33 (32-36) % Plt Count 219 (150-400) K/uL Neut % (Auto) 46 (36-66) % Lymph % (Auto) 40 (24-44) % [place] % (Auto) 10 H (2-6) % Eos % (Auto) 3 (2-4) % Baso % (Auto) 0 (0-1) % Sodium 144 (140-148) mmol/L Potassium 3.6 (3.6-5.2) mmol/L Chloride 111 H (100-108) mmol/L Carbon Dioxide 24 (21-32) mmol/L Anion Gap 12.6 (5.0-14.0) mmol/L BUN 8 (7-18) mg/dL Creatinine 0.8 (0.6-1.0) mg/dL Est Cr Clr Drug Dosing 68.05 mL/min Estimated GFR (MDRD) > 60 (>60) Glucose 86 (74-106) mg/dL Calcium 8.4 L (8.5-10.1) mg/dL Med Orders - Current: Current Medications Acetaminophen (Tylenol) 650 mg PO Q4H PRN PRN Reason: Pain (Mild 1-3)/fever Albuterol (Proventil Neb Soln) 2.5 mg NEB Q4H PRN PRN Reason: Shortness Of Breath/wheezing Albuterol/Ipratropium (Duoneb 3.0-0.5 Mg/3 Ml) 3 ml NEB QID PRN PRN Reason: Shortness Of Breath/wheezing Bisacodyl (Dulcolax) 5 mg PO DAILY PRN PRN Reason: 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 Docusate Sodium (Colace) 100 mg PO BID PRN PRN Reason: 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 Haloperidol Lactate (Haldol) 1 mg IVPUSH Q4H PRN PRN Reason: Agitation Lactated Ringer's (Ringers, Lactated) 1,000 mls @ 125 mls/hr IV ASDIRECTED [facility] Last Admin: 08/20/17 05:57 Dose: 125 mls/hr Ketorolac Tromethamine (Toradol) 30 mg IVPUSH Q6H PRN PRN Reason: Pain (moderate 4-6) Lorazepam (Ativan) 1 - 2 mg IVPUSH Q2H PRN PRN Reason: Agitation Morphine Sulfate (Morphine) 2 mg IVPUSH Q2H PRN PRN Reason: Pain (severe 7-10) Ondansetron HCl (Zofran Odt) 4 mg PO Q6H PRN PRN Reason: Nausea able to take PO Ondansetron HCl (Zofran) 4 mg IV Q4H PRN PRN Reason: Nausea/Vomiting Oxycodone HCl (Oxycodone) 5 mg PO Q4H PRN PRN Reason: Pain (moderate 4-6) Topiramate (Topamax) 100 mg PO BID [facility] Last Admin: 08/20/17 10:10 Dose: 100 mg Venlafaxine HCl (Effexor Xr) 150 mg PO [facility] Last Admin: 08/20/17 10:10 Dose: 150 mg Discontinued Medications Topiramate (Topamax) Confirm Administered Dose 100 mg .ROUTE .STK-MED ONE Stop: 08/19/17 22:01 Last Admin: 08/20/17 07:28 Dose: Not Given *Q Meaningful Use (DIS) - VTE *Q VTE Criteria *Q: - Stroke *Q Stroke Criteria *Q: - AMI *Q AMI Criteria *Q:
== END 2017-08-20 11:11 | disposition home or self-care (01) ==
LOC: JP.ED 15:57 → JP.MS 19:38
PROVIDERS: ADMIT Internal Medicine; ATTEND Internal Medicine
DX: F11.229 Opioid dependence with intoxication, unspecified (principal); I10 Essential (primary) hypertension; E78.00 Pure hypercholesterolemia, unspecified; J45.909 Unspecified asthma, uncomplicated; F41.9 Anxiety disorder, unspecified; F32.9 Major depressive disorder, single episode, unspecified; E05.90 Thyrotoxicosis, unspecified without thyrotoxic crisis or storm; Z79.82 Long term (current) use of aspirin; Z79.899 Other long term (current) drug therapy; Z88.8 Allergy status to other drugs, medicaments and biological substances; Z91.030 Bee allergy status; Z91.040 Latex allergy status; Z90.49 Acquired absence of other specified parts of digestive tract; Z98.890 Other specified postprocedural states; F17.210 Nicotine dependence, cigarettes, uncomplicated
CPT/HCPCS: 36415; 70450; 80048; 80053; 80305; 81001; 82140; 85025; 96361; 96374; 96375; 99285; A9270; G0378; G0480; J7120; 96360; 99217; 99219

== ENCOUNTER 2017-09-30 14:58 | Emergency (ER) | payer MEDICARE, MEDICAID ==
[2017-09-30 15:10] VITALS: BP 125/79
--- NOTE | 2017-09-30 17:10 | EDM.PDOCBH ---
<Ronald Sanchez - Last Filed: 09/30/17 17:04> ED HPI GENERAL MEDICAL PROBLEM - General Chief Complaint: Behavioral/Psych Stated Complaint: EVALUATION Time Seen by Provider: 09/30/17 15:15 Source of Information: Reports: Patient, Family, Police History Limitations: Reports: No Limitations - History of Present Illness INITIAL COMMENTS - FREE TEXT/NARRATIVE: 52-year-old female with chronic depression, sees a counselor once a week but has felt her depression worsening for several months. She has some very difficult family dynamics happening currently where her family "doesn't want to see her". She was planning on moving into a place close to her parents but her brother moved in instead, causing some animosity. 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 If she had a gun she would use it. She was brought in by police. She was hospitalized within the past 2 months with a polysubstance overdose, was positive for methamphetamine at that time although she denies using methamphetamine. 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 Severity: Moderate Associated Symptoms: Reports: Headaches, Malaise. Denies: Chest Pain, Fever/ Chills, Nausea/Vomiting - Related Data Allergies Allergy/AdvReac Type Severity Reaction Status Date / Time bee pollen Allergy Anaphylactic Verified 08/19/17 17:03 Shock butorphanol tartrate Allergy Rash Verified 08/19/17 17:03 [From Stadol] latex Allergy Itching Verified 08/19/17 17:03 meperidine HCl [From Demerol] Allergy Itching Verified 08/19/17 17:03 Home Meds: Home Meds Albuterol [Ventolin HFA] 2 puff INH QID PRN 06/12/14 [History] Amitriptyline HCl 50 mg PO BEDTIME 06/12/14 [History] Aspirin 325 mg PO DAILY 06/12/14 [History] Baclofen 10 mg PO TID PRN 06/12/14 [History] Simvastatin 20 mg PO BEDTIME 06/12/14 [History] Topiramate [Topamax] 100 mg PO BID 06/12/14 [History] Cholecalciferol (Vitamin D3) [Vitamin D3] 1,000 mg PO BID 09/05/15 [History] Potassium Bicarbonate/Cit Ac [Effer-K] 20 meq PO BID 09/03/16 [History] Thiamine HCl [B-1] 1 tab PO DAILY 09/03/16 [History] SUMAtriptan Succinate [Sumatriptan Succinate] 1 tab PO BID PRN 06/02/17 [History ] Cetirizine [ZyrTEC] 1 tab PO DAILY 09/30/17 [History] Gabapentin [Neurontin] 1 cap PO TID 09/30/17 [History] Ibuprofen 1 tab PO Q8H PRN 09/30/17 [History] LORazepam 1 tab PO BID 09/30/17 [History] LORazepam 1 tab PO Q6HR PRN 09/30/17 [History] Lactose 30 ml PO DAILY 09/30/17 [History] Multivitamin with Minerals [Multiple Vitamin] 1 tab PO DAILY 09/30/17 [History] Polyethylene Glycol 3350 [Laxaclear] 17 gram PO DAILY 09/30/17 [History] Sennosides/Docusate Sodium [Senna-Docusate Sodium] 1 tab PO BID 09/30/17 [ History] Past Medical History HEENT History: Reports: Impaired Vision, Other (See Below) Other HEENT History: Top and bottom dentures Cardiovascular History: Reports: High Cholesterol Respiratory History: Reports: Asthma Gastrointestinal History: Reports: Chronic 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, 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 History: Reports: Fracture Other 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 History: Left arm Neurological History: Reports: CVA, Migraines, Seizure, Other (See Below) Other Neuro History: has brace on left leg Psychiatric History: Reports: Addiction, Anxiety, Depression, Suicide Attempt Endocrine/Metabolic History: Reports: Hyperthyroidism Hematologic History: Reports: B12 Deficiency Immunologic History: Reports: Other (See Below) Other Immunologic History: hepatitis b Oncologic (Cancer) History: Reports: Cervix Dermatologic History: Reports: Other (See Below) Other Dermatologic History: dry sensitive skin - Infectious Disease History Infectious Disease History: Reports: Hepatitis B - Past Surgical History GI Surgical History: Reports: Appendectomy, Other (See Below) Other GI Surgeries/Procedures: laporoscopy exploritory lap found PID Social & Family History - Family History Family Medical History: Unobtainable - Tobacco Use Smoking Status *Q: Current Every Day Smoker Years of Tobacco use: 36 Packs/Tins Daily: 1 Second Hand Smoke Exposure: No - Caffeine Use Caffeine Use: Reports: Coffee, Soda - Alcohol Use Days Per Week of Alcohol Use: 1 Number of Drinks Per Day: 2 Total Drinks Per Week: 2 - Recreational Drug Use Recreational Drug Use: No Drug Use in Last 12 Months: Yes Recreational Drug Type: Reports: Marijuana/Hashish Recreational Drug Use Frequency: Monthly ED ROS GENERAL - Review of Systems Review Of Systems: See Below Constitutional: Reports: Malaise, Weakness Respiratory: Denies: Shortness of Breath Cardiovascular: Denies: Chest Pain GI/Abdominal: Reports: Nausea. Denies: Abdominal Pain, Vomiting Neurological: Reports: Other (Chronic left-sided weakness secondary to CVA) Psychiatric: Reports: Depression, Suicidal Ideation ED EXAM, BEHAVIORAL HEALTH - Physical Exam Exam: See Below Exam Limited By: No Limitations General Appearance: Alert, No Apparent Distress Eye Exam: Bilateral Eye: EOMI Throat/Mouth: Other (Speech is clear, facial muscles are symmetric) Neck: Normal Inspection Respiratory/Chest: No Respiratory Distress, Lungs Clear Cardiovascular: Regular Rate, Rhythm Neurological: Alert, Other (Marked left-sided weakness, near-total paralysis of the left arm secondary to a past CVA) Psychiatric: Depressed Mood, Tearful, Withdrawn, Suicidal Thoughts COURSE, BEHAVIORAL HEALTH COMP - Course Vital Signs: Last Vital Signs Temp 35.5 C 09/30/17 15:26 Pulse 82 09/30/17 15:26 Resp 16 09/30/17 15:26 BP 125/79 09/30/17 15:26 Pulse Ox 100 09/30/17 15:26 Orders, Labs, Meds: Laboratory Tests 09/30/17 09/30/17 09/30/17 Range/Units 16:26 16:26 16:34 WBC 8.5 (4.5-11.0) K/uL RBC 4.61 (3.30-5.50) M/uL Hgb 13.6 (12.0-15.0) g/dL Hct 41.4 (36.0-48.0) % MCV 90 (80-98) fL MCH 30 (27-31) pg MCHC 33 (32-36) % Plt Count 201 (150-400) K/uL Neut % (Auto) 55 (36-66) % Lymph % (Auto) 34 (24-44) % [place] % (Auto) 8 H (2-6) % Eos % (Auto) 3 (2-4) % Baso % (Auto) 0 (0-1) % Sodium (140-148) mmol/L Potassium (3.6-5.2) mmol/L Chloride (100-108) mmol/L Carbon Dioxide (21-32) mmol/L Anion Gap (5.0-14.0) mmol/L BUN (7-18) mg/dL Creatinine (0.6-1.0) mg/dL Est Cr Clr Drug Dosing mL/min Estimated GFR (MDRD) (>60) Glucose (74-106) mg/dL Calcium (8.5-10.1) mg/dL Total Bilirubin (0.2-1.0) mg/dL AST (15-37) U/L ALT (12-78) U/L Alkaline Phosphatase (46-116) U/L Total Protein (6.4-8.2) g/dL Albumin (3.4-5.0) g/dL Globulin (2.3-3.5) g/dL Albumin/Globulin Ratio (1.2-2.2) TSH, Ultra Sensitive (0.358-3.740) uIU/mL Urine Color Yellow Urine Appearance Clear Urine pH 6.0 (4.5-8.0) Ur Specific [place] 1.020 (1.008-1.030) Urine Protein Negative (NEGATIVE) mg/dL Urine Glucose (UA) Normal (NEGATIVE) mg/dL Urine Ketones Negative (NEGATIVE) mg/dL Urine Occult Blood Negative (NEGATIVE) Urine Nitrite Negative (NEGATIVE) Urine Bilirubin Negative (NEGATIVE) Urine Urobilinogen Normal (NORMAL) mg/dL Ur Leukocyte Esterase Negative (NEGATIVE) Urine RBC 0-5 (0-5) Urine WBC 0-5 (0-5) Ur Epithelial Cells Moderate Amorphous Sediment Not seen Urine Bacteria Moderate Urine Mucus Not seen Urine Opiates Screen Positive H (NEGATIVE) Ur Oxycodone Screen Negative (NEGATIVE) Urine Methadone Screen Negative (NEGATIVE) Ur Propoxyphene Screen Negative (NEGATIVE) Acetaminophen (10.0-30.0) ug/mL Ur Barbiturates Screen Negative (NEGATIVE) Ur Tricyclics Screen Positive H (NEGATIVE) Ur Phencyclidine Scrn Negative (NEGATIVE) Ur Amphetamine Screen Negative (NEGATIVE) U Methamphetamines Scrn Positive H (NEGATIVE) Urine MDMA Screen Negative (NEGATIVE) U Benzodiazepines Scrn Positive H (NEGATIVE) U Cocaine Metab Screen Negative (NEGATIVE) U Marijuana (THC) Screen Negative (NEGATIVE) Ethyl Alcohol mg/dL 09/30/17 09/30/17 09/30/17 Range/Units 16:34 16:34 21:29 WBC (4.5-11.0) K/uL RBC (3.30-5.50) M/uL Hgb (12.0-15.0) g/dL Hct (36.0-48.0) % MCV (80-98) fL MCH (27-31) pg MCHC (32-36) % Plt Count (150-400) K/uL Neut % (Auto) (36-66) % Lymph % (Auto) (24-44) % [place] % (Auto) (2-6) % Eos % (Auto) (2-4) % Baso % (Auto) (0-1) % Sodium 144 (140-148) mmol/L Potassium 3.5 L (3.6-5.2) mmol/L Chloride 108 (100-108) mmol/L Carbon Dioxide 26 (21-32) mmol/L Anion Gap 13.5 (5.0-14.0) mmol/L BUN 14 D (7-18) mg/dL Creatinine 0.9 (0.6-1.0) mg/dL Est Cr Clr Drug Dosing 62.83 mL/min Estimated GFR (MDRD) > 60 (>60) Glucose 79 (74-106) mg/dL Calcium 8.9 (8.5-10.1) mg/dL Total Bilirubin 0.2 (0.2-1.0) mg/dL AST 18 (15-37) U/L ALT 19 (12-78) U/L Alkaline Phosphatase 110 (46-116) U/L Total Protein 6.9 (6.4-8.2) g/dL Albumin 3.7 (3.4-5.0) g/dL Globulin 3.2 (2.3-3.5) g/dL Albumin/Globulin Ratio 1.2 (1.2-2.2) TSH, Ultra Sensitive 2.016 (0.358-3.740) uIU/mL Urine Color Urine Appearance Urine pH (4.5-8.0) Ur Specific [place] (1.008-1.030) Urine Protein (NEGATIVE) mg/dL Urine Glucose (UA) (NEGATIVE) mg/dL Urine Ketones (NEGATIVE) mg/dL Urine Occult Blood (NEGATIVE) Urine Nitrite (NEGATIVE) Urine Bilirubin (NEGATIVE) Urine Urobilinogen (NORMAL) mg/dL Ur Leukocyte Esterase (NEGATIVE) Urine RBC (0-5) Urine WBC (0-5) Ur Epithelial Cells Amorphous Sediment Urine Bacteria Urine Mucus Urine Opiates Screen (NEGATIVE) Ur Oxycodone Screen (NEGATIVE) Urine Methadone Screen (NEGATIVE) Ur Propoxyphene Screen (NEGATIVE) Acetaminophen 0.0 L (10.0-30.0) ug/mL Ur Barbiturates Screen (NEGATIVE) Ur Tricyclics Screen (NEGATIVE) Ur Phencyclidine Scrn (NEGATIVE) Ur Amphetamine Screen (NEGATIVE) U Methamphetamines Scrn (NEGATIVE) Urine MDMA Screen (NEGATIVE) U Benzodiazepines Scrn (NEGATIVE) U Cocaine Metab Screen (NEGATIVE) U Marijuana (THC) Screen (NEGATIVE) Ethyl Alcohol < 3 mg/dL Re-Assessment/Re-Exam: Urine drug screen, EtOH, acetaminophen, CBC and CMP were obtained. Urine drug screen was again positive for methamphetamine which the patient became very agitated and angry because it couldn't possibly be positive. She thinks that someone in the apartment is putting it in her drinks. Because of the positive drug screens a crisis intervention would not be accurate and she needs I believe urgent admission for stabilization for her safety. I'll place her on a 72 hour hold and hopefully we can get her admitted to a nearby facility. Departure - Departure Disposition: Home, Self-Care 01 Clinical Impression: Depression, Chemical abuse - Discharge Information Referrals: Marta Powell MD [Primary Care Provider] - Forms: ED Department Discharge Care Plan Goals: transfer to [place] [facility] <Taliaferro,Jane - Last Filed: 09/30/17 22:33> COURSE, BEHAVIORAL HEALTH COMP - Course Medical Clearance: 09/30/17 22:[address] [place] [place] [facility] Is willing. to take the pt if the tsh is normal. This did return normal so will transport to [place]. Departure - Departure Time of Disposition: 22:32 Condition: Fair
== END 2017-09-30 23:51 | disposition home or self-care (01) ==
LOC: JP.ED 14:58
DX: F32.9 Major depressive disorder, single episode, unspecified (principal); F15.10 Other stimulant abuse, uncomplicated; F17.210 Nicotine dependence, cigarettes, uncomplicated; E05.90 Thyrotoxicosis, unspecified without thyrotoxic crisis or storm; J45.909 Unspecified asthma, uncomplicated; Z79.82 Long term (current) use of aspirin; Z79.899 Other long term (current) drug therapy; Z88.8 Allergy status to other drugs, medicaments and biological substances; Z91.040 Latex allergy status; Z91.030 Bee allergy status
CPT/HCPCS: 36415; 80053; 80305; 81001; 84443; 85025; 99283; 99284; G0480

== ENCOUNTER 2018-02-18 01:31 | Emergency (ER) | payer MEDICARE, MEDICAID ==
[2018-02-18] MEDS ORDERED: Gabapentin 300 MG Cap PO ONE (01:57)
[2018-02-18] MEDS ORDERED: Sodium Chloride 0.9% 1,000 ML IV SCH (02:00)
--- NOTE | 2018-02-18 02:15 | EDM.PDOC ---
<Sravan Tierney G - Last Filed: 02/18/18 08:20> ED HPI GENERAL MEDICAL PROBLEM - General Chief Complaint: Neurological Problem Stated Complaint: MED[facility] Time Seen by Provider: 02/18/18 02:10 - Related Data Allergies Allergy/AdvReac Type Severity Reaction Status Date / Time bee pollen Allergy Anaphylactic Verified 08/19/17 17:03 Shock butorphanol tartrate Allergy Rash Verified 08/19/17 17:03 [From Stadol] latex Allergy Itching Verified 08/19/17 17:03 meperidine HCl [From Demerol] Allergy Itching Verified 08/19/17 17:03 mold Allergy Cannot Verified 02/18/18 02:50 Remember Home Meds: Home Meds Amitriptyline HCl 50 mg PO BEDTIME 06/12/14 [History] Aspirin 325 mg PO DAILY 06/12/14 [History] Baclofen 10 mg PO TID PRN 06/12/14 [History] Simvastatin 20 mg PO BEDTIME 06/12/14 [History] Topiramate [Topamax] 100 mg PO BID 06/12/14 [History] Cholecalciferol (Vitamin D3) [Vitamin D3] 1,000 mg PO BID 09/05/15 [History] Thiamine HCl [B-1] 100 mg PO DAILY 09/03/16 [History] SUMAtriptan Succinate [Sumatriptan Succinate] 25 mg PO BID PRN 06/02/17 [History ] Cetirizine [ZyrTEC] 10 mg PO DAILY 09/30/17 [History] Gabapentin [Neurontin] 300 mg PO TID 09/30/17 [History] Ibuprofen 600 mg PO Q8H PRN 09/30/17 [History] LORazepam 1 mg PO DAILY 09/30/17 [History] Lactose 30 ml PO DAILY 09/30/17 [History] Multivitamin with Minerals [Multiple Vitamin] 1 tab PO DAILY 09/30/17 [History] Polyethylene Glycol 3350 [Laxaclear] 17 gram PO DAILY 09/30/17 [History] Sennosides/Docusate Sodium [Senna-Docusate Sodium] 1 tab PO BID 09/30/17 [ History] Dextran 70/Hypromellose/PF [Artificial Tears Drops] 1 each EYEBOTH DAILY [History] EPINEPHrine [Epipen] 0.3 mg IM ASDIRECTED PRN 02/18/18 [History] Lactulose [Cephulac] 30 ml PO DAILY 02/18/18 [History] Potassium Chloride 20 meq PO BID 02/18/18 [History] Ranitidine HCl [Ranitidine] 150 mg PO BID 02/18/18 [History] Sertraline [Zoloft] 150 mg PO DAILY 02/18/18 [History] Venlafaxine [Effexor XR] 150 mg PO DAILY 02/18/18 [History] Course - Vital Signs Text/Narrative:: Offered detox after she awoke. She declined this offer today. Says she can do it on her own. Last Recorded V/S: Last Vital Signs Temp 36.1 C 02/18/18 08:22 Pulse 81 02/18/18 08:22 Resp 15 02/18/18 08:22 BP 109/72 02/18/18 08:22 Pulse Ox 95 02/18/18 08:22 - Orders/Labs/Meds Labs: Laboratory Tests 02/18/18 02/18/18 02/18/18 Range/Units 01:44 01:44 02:09 WBC 7.9 (4.5-11.0) K/uL RBC 4.19 (3.30-5.50) M/uL Hgb 12.4 (12.0-15.0) g/dL Hct 38.5 (36.0-48.0) % MCV 92 (80-98) fL MCH 30 (27-31) pg MCHC 32 (32-36) % Plt Count 217 (150-400) K/uL Neut % (Auto) 57 (36-66) % Lymph % (Auto) 31 (24-44) % [place] % (Auto) 11 H (2-6) % Eos % (Auto) 2 (2-4) % Baso % (Auto) 0 (0-1) % Sodium 142 (140-148) mmol/L Potassium 3.5 L (3.6-5.2) mmol/L Chloride 108 (100-108) mmol/L Carbon Dioxide 25 (21-32) mmol/L Anion Gap 12.5 (5.0-14.0) mmol/L BUN 8 (7-18) mg/dL Creatinine 0.9 (0.6-1.0) mg/dL Est Cr Clr Drug Dosing 61.91 mL/min Estimated GFR (MDRD) > 60 (>60) Glucose 83 (74-106) mg/dL Calcium 8.5 (8.5-10.1) mg/dL Total Bilirubin 0.1 L (0.2-1.0) mg/dL AST 13 L (15-37) U/L ALT 21 (12-78) U/L Alkaline Phosphatase 101 (46-116) U/L Total Protein 6.3 L (6.4-8.2) g/dL Albumin 3.6 (3.4-5.0) g/dL Globulin 2.7 (2.3-3.5) g/dL Albumin/Globulin Ratio 1.3 (1.2-2.2) TSH, Ultra Sensitive 1.819 (0.358-3.740) uIU/mL Urine Color Urine Appearance Urine pH (4.5-8.0) Ur Specific [place] (1.008-1.030) Urine Protein (NEGATIVE) mg/dL Urine Glucose (UA) (NEGATIVE) mg/dL Urine Ketones (NEGATIVE) mg/dL Urine Occult Blood (NEGATIVE) Urine Nitrite (NEGATIVE) Urine Bilirubin (NEGATIVE) Urine Urobilinogen (NORMAL) mg/dL Ur Leukocyte Esterase (NEGATIVE) Urine RBC (0-5) Urine WBC (0-5) Ur Epithelial Cells Amorphous Sediment Urine Bacteria Urine Mucus Urine Opiates Screen (NEGATIVE) Ur Oxycodone Screen (NEGATIVE) Urine Methadone Screen (NEGATIVE) Ur Propoxyphene Screen (NEGATIVE) Ur Barbiturates Screen (NEGATIVE) Ur Tricyclics Screen (NEGATIVE) Ur Phencyclidine Scrn (NEGATIVE) Ur Amphetamine Screen (NEGATIVE) U Methamphetamines Scrn (NEGATIVE) Urine MDMA Screen (NEGATIVE) U Benzodiazepines Scrn (NEGATIVE) U Cocaine Metab Screen (NEGATIVE) U Marijuana (THC) Screen (NEGATIVE) Ethyl Alcohol mg/dL 02/18/18 02/18/18 02/18/18 Range/Units 02:21 02:38 02:38 WBC (4.5-11.0) K/uL RBC (3.30-5.50) M/uL Hgb (12.0-15.0) g/dL Hct (36.0-48.0) % MCV (80-98) fL MCH (27-31) pg MCHC (32-36) % Plt Count (150-400) K/uL Neut % (Auto) (36-66) % Lymph % (Auto) (24-44) % [place] % (Auto) (2-6) % Eos % (Auto) (2-4) % Baso % (Auto) (0-1) % Sodium (140-148) mmol/L Potassium (3.6-5.2) mmol/L Chloride (100-108) mmol/L Carbon Dioxide (21-32) mmol/L Anion Gap (5.0-14.0) mmol/L BUN (7-18) mg/dL Creatinine (0.6-1.0) mg/dL Est Cr Clr Drug Dosing mL/min Estimated GFR (MDRD) (>60) Glucose (74-106) mg/dL Calcium (8.5-10.1) mg/dL Total Bilirubin (0.2-1.0) mg/dL AST (15-37) U/L ALT (12-78) U/L Alkaline Phosphatase (46-116) U/L Total Protein (6.4-8.2) g/dL Albumin (3.4-5.0) g/dL Globulin (2.3-3.5) g/dL Albumin/Globulin Ratio (1.2-2.2) TSH, Ultra Sensitive (0.358-3.740) uIU/mL Urine Color Yellow Urine Appearance Clear Urine pH 6.5 (4.5-8.0) Ur Specific [place] 1.010 (1.008-1.030) Urine Protein Negative (NEGATIVE) mg/dL Urine Glucose (UA) Normal (NEGATIVE) mg/dL Urine Ketones Negative (NEGATIVE) mg/dL Urine Occult Blood Negative (NEGATIVE) Urine Nitrite Negative (NEGATIVE) Urine Bilirubin Negative (NEGATIVE) Urine Urobilinogen Normal (NORMAL) mg/dL Ur Leukocyte Esterase Negative (NEGATIVE) Urine RBC 0-5 (0-5) Urine WBC 0-5 (0-5) Ur Epithelial Cells Few Amorphous Sediment Not seen Urine Bacteria Few Urine Mucus Not seen Urine Opiates Screen Negative (NEGATIVE) Ur Oxycodone Screen Negative (NEGATIVE) Urine Methadone Screen Negative (NEGATIVE) Ur Propoxyphene Screen Negative (NEGATIVE) Ur Barbiturates Screen Negative (NEGATIVE) Ur Tricyclics Screen Positive H (NEGATIVE) Ur Phencyclidine Scrn Negative (NEGATIVE) Ur Amphetamine Screen Negative (NEGATIVE) U Methamphetamines Scrn Positive H (NEGATIVE) Urine MDMA Screen Negative (NEGATIVE) U Benzodiazepines Scrn Negative (NEGATIVE) U Cocaine Metab Screen Negative (NEGATIVE) U Marijuana (THC) Screen Negative (NEGATIVE) Ethyl Alcohol < 3 mg/dL Meds: Medications Discontinued Medications Generic Name Dose Route Start Last Admin Trade Name Collin PRN Reason Stop Dose Admin Gabapentin 300 mg 02/18/18 01:57 02/18/18 02:05 Neurontin PO 02/18/18 01:58 300 mg ONETIME ONE Administration Sodium Chloride 1,000 mls @ 500 mls/hr 02/18/18 02:00 02/18/18 02:13 Normal Saline IV 500 mls/hr ASDIRECTED TYLER Administration Departure - Departure Time of Disposition: 08:35 Disposition: Home, Self-Care 01 Clinical Impression: Increasing frequency of seizure activity, Methamphetamine abuse, ETOH abuse, Drug-induced seizure - Discharge Information Instructions: Alcohol Intoxication, [id number], Stimulant Use Disorder- Methamphetamines, Seizure, Adult, [id number] Referrals: PCP,None [Primary Care Provider] - Forms: ED Department Discharge Additional Instructions: Continue your usual medications. Do not use any street drugs as they will make you more likely to have another seizure. If you cannot stay clean on your own then go to detox or see your doctor to discuss. We recommend you follow up with your doctor any time you are sick enough to have had to come to the ER. Care Plan Goals: avoid the use of meth and etoh. cont same meds. <Jolivue,Jane - Last Filed: 02/19/18 06:21> ED HPI GENERAL MEDICAL PROBLEM - General Source of Information: Reports: Patient History Limitations: Reports: No Limitations - History of Present Illness INITIAL COMMENTS - FREE TEXT/NARRATIVE: pt had 2 back to back seizures tonight. Earlier today she fell out of her wheel chair and hit her head. She does not think she was knocked out. She is also having pain in her rt shouder. Onset: Today Duration: Hour(s):, Other (pt had 2 back to back seizures. She has had a previous cva with a left sided hemiparsis. 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, 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 History: Reports: Fracture Other 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 History: Left arm Neurological History: Reports: CVA, Migraines, Seizure, Other (See Below) Other Neuro History: has brace on left leg Psychiatric History: Reports: Addiction, Anxiety, Depression, Suicide Attempt Endocrine/Metabolic History: Reports: Hyperthyroidism Hematologic History: Reports: B12 Deficiency Immunologic History: Reports: Other (See Below) Other Immunologic History: hepatitis b Oncologic (Cancer) History: Reports: Cervix Dermatologic History: Reports: Other (See Below) Other Dermatologic History: dry sensitive skin - Infectious Disease History Infectious Disease History: Reports: Hepatitis B - Past Surgical History GI Surgical History: Reports: Appendectomy, Other (See Below) Other GI Surgeries/Procedures: laporoscopy exploritory lap found PID Social & Family History - Family History Family Medical History: Unobtainable - Tobacco Use Smoking Status *Q: Current Every Day Smoker Years of Tobacco use: 36 Packs/Tins Daily: 1 Second Hand Smoke Exposure: No - Caffeine Use Caffeine Use: Reports: Coffee, Soda - Alcohol Use Days Per Week of Alcohol Use: 1 Number of Drinks Per Day: 2 Total Drinks Per Week: 2 - Recreational Drug Use Recreational Drug Use: No Drug Use in Last 12 Months: Yes Recreational Drug Type: Reports: Marijuana/Hashish Recreational Drug Use Frequency: Monthly ED ROS GENERAL - Review of Systems Review Of Systems: See Below Constitutional: Reports: No Symptoms HEENT: Reports: No Symptoms Respiratory: Reports: No Symptoms Cardiovascular: Reports: No Symptoms Endocrine: Reports: No Symptoms GI/Abdominal: Reports: No Symptoms : Reports: No Symptoms 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: Reports: No Symptoms Skin: Reports: No Symptoms Neurological: Reports: Headache, Other (pt did hit her head earlier today. ) Psychiatric: Reports: Depression - Physical Exam Exam: See Below Text/Narrative:: pt has a history of a previous stroke. She has used meth in the past. She has not been ill recently but she did hit her head hard earlier. Exam Limited By: No Limitations General Appearance: Alert, Mild Distress, Other (pupils are equal and reactive. ) Ears: Normal TMs Nose: Normal Inspection Throat/Mouth: Normal Inspection Head Exam: Atraumatic, Other ( she does have slight swelling on the left forehead area. ) Neck: Normal Inspection Respiratory/Chest: No Respiratory Distress Cardiovascular: Regular Rate, Rhythm GI/Abdominal: Soft, Non-Tender (Female) Exam: Deferred Rectal (Female) Exam: Deferred Neuro Exam (Abbreviated): Alert, Slow to Respond, Other (pt is post ictal. ) Back Exam: Normal Inspection Extremities: Other (pt is tender in the rt shoulder area. ) Psychiatric: Depressed Mood Course - Re-Assessments/Exams Free Text/Narrative Re-Assessment/Exam: 02/18/18 03:19 pt arrived with a history of 2 back to back seizures. She has been doing some drinking and is positive for meth. Pt had a cat scan of the head which did not have any new findings. She was given an extra dose of neurontin . She had no further seizure activity. 02/19/18 06:20 Departure - Departure Condition: Fair
[2018-02-18 08:24] VITALS: BP 109/72
--- NOTE | 2018-02-18 09:59 | CR ---
Mild AC joint hypertrophy. No evidence for fracture. No dislocation.
== END 2018-02-18 09:00 | disposition home or self-care (01) ==
LOC: JP.ED 01:31
DX: R56.9 Unspecified convulsions (principal); F15.10 Other stimulant abuse, uncomplicated; F10.10 Alcohol abuse, uncomplicated; M25.511 Pain in right shoulder; R22.0 Localized swelling, mass and lump, head; E78.00 Pure hypercholesterolemia, unspecified; E05.90 Thyrotoxicosis, unspecified without thyrotoxic crisis or storm; F41.9 Anxiety disorder, unspecified; F17.210 Nicotine dependence, cigarettes, uncomplicated; F32.9 Major depressive disorder, single episode, unspecified; J45.909 Unspecified asthma, uncomplicated; Z86.73 Personal history of transient ischemic attack (TIA), and cerebral infarction without residual deficits; Z91.030 Bee allergy status; Z91.09 Other allergy status, other than to drugs and biological substances; Z91.040 Latex allergy status; Z88.5 Allergy status to narcotic agent; Z79.82 Long term (current) use of aspirin; Z79.899 Other long term (current) drug therapy; W01.198A Fall on same level from slipping, tripping and stumbling with subsequent striking against other object, initial encounter
CPT/HCPCS: 36415; 70450; 73030; 80053; 80305; 81001; 84443; 85025; 96360; 96361; 99285; A9270; G0480; J7040

== ENCOUNTER 2018-04-10 15:07 | Emergency (ER) | payer MEDICARE, MEDICAID | END 2018-04-10 17:45 | disposition left against medical advice (07) | LOC: JP.ED 15:07 | DX: Z53.21 Procedure and treatment not carried out due to patient leaving prior to being seen by health care provider (principal) ==

== ENCOUNTER 2018-05-13 12:41 | Emergency (ER) | payer MEDICARE, MEDICAID ==
[2018-05-13 13:26] VITALS: BP 95/67
[2018-05-13] MEDS ORDERED: diphenhydrAMINE 50 MG/ML SDV IVPUSH ONE (13:27)
[2018-05-13] MEDS ORDERED: Ketorolac 30 MG/ML SDV IVPUSH ONE (13:28)
[2018-05-13] MEDS ORDERED: Prochlorperazine 10 MG/2 ML SDV IVPUSH ONE (13:28)
[2018-05-13] MEDS ORDERED: Sodium Chloride 0.9% 1,000 ML IV SCH (13:30)
--- NOTE | 2018-05-13 13:34 | EDM.PDOC ---
ED HPI GENERAL MEDICAL PROBLEM - General Chief Complaint: Headache Stated Complaint: MIGRAINE Time Seen by Provider: 05/13/18 13:29 Source of Information: Reports: Patient, Family History Limitations: Reports: No Limitations - History of Present Illness INITIAL COMMENTS - FREE TEXT/NARRATIVE: pt arrived with a rt sided headache. pt left before anything further could be done because her homecare nurse is due to make a visit today. Onset: Other ( started 9 days ago when her sister was found . ) Headache Pain Score (Numeric/FACES): 10 - Related Data Allergies Allergy/AdvReac Type Severity Reaction Status Date / Time bee pollen Allergy Anaphylactic Verified 08/19/17 17:03 Shock butorphanol tartrate Allergy Rash Verified 08/19/17 17:03 [From Stadol] latex Allergy Itching Verified 08/19/17 17:03 meperidine HCl [From Demerol] Allergy Itching Verified 08/19/17 17:03 mold Allergy Cannot Verified 02/18/18 02:50 Remember Home Meds: Home Meds Amitriptyline HCl 50 mg PO BEDTIME 06/12/14 [History] Aspirin 325 mg PO DAILY 06/12/14 [History] Baclofen 10 mg PO TID PRN 06/12/14 [History] Simvastatin 20 mg PO BEDTIME 06/12/14 [History] Topiramate [Topamax] 100 mg PO BID 06/12/14 [History] Cholecalciferol (Vitamin D3) [Vitamin D3] 1,000 mg PO BID 09/05/15 [History] Thiamine HCl [B-1] 100 mg PO DAILY 09/03/16 [History] SUMAtriptan Succinate [Sumatriptan Succinate] 25 mg PO BID PRN 06/02/17 [History ] Cetirizine [ZyrTEC] 10 mg PO DAILY 09/30/17 [History] Gabapentin [Neurontin] 300 mg PO TID 09/30/17 [History] Ibuprofen 600 mg PO Q8H PRN 09/30/17 [History] LORazepam 1 mg PO DAILY 09/30/17 [History] Lactose 30 ml PO DAILY 09/30/17 [History] Multivitamin with Minerals [Multiple Vitamin] 1 tab PO DAILY 09/30/17 [History] Polyethylene Glycol 3350 [Laxaclear] 17 gram PO DAILY 09/30/17 [History] Sennosides/Docusate Sodium [Senna-Docusate Sodium] 1 tab PO BID 09/30/17 [ History] Dextran 70/Hypromellose/PF [Artificial Tears Drops] 1 each EYEBOTH DAILY [History] EPINEPHrine [Epipen] 0.3 mg IM ASDIRECTED PRN 02/18/18 [History] Lactulose [Cephulac] 30 ml PO DAILY 02/18/18 [History] Potassium Chloride 20 meq PO BID 02/18/18 [History] Ranitidine HCl [Ranitidine] 150 mg PO BID 02/18/18 [History] Sertraline [Zoloft] 150 mg PO DAILY 02/18/18 [History] Venlafaxine [Effexor XR] 150 mg PO DAILY 02/18/18 [History] Past Medical History HEENT History: Reports: Impaired Vision, Other (See Below) Other HEENT History: Top and bottom dentures Cardiovascular History: Reports: High Cholesterol Respiratory History: Reports: Asthma Gastrointestinal History: Reports: Chronic 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, 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 History: Reports: Fracture Other 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 History: Left arm Neurological History: Reports: CVA, Migraines, Seizure, Other (See Below) Other Neuro History: has brace on left leg Psychiatric History: Reports: Addiction, Anxiety, Depression, Suicide Attempt Endocrine/Metabolic History: Reports: Hyperthyroidism Hematologic History: Reports: B12 Deficiency Immunologic History: Reports: Other (See Below) Other Immunologic History: hepatitis b Oncologic (Cancer) History: Reports: Cervix Dermatologic History: Reports: Other (See Below) Other Dermatologic History: dry sensitive skin - Infectious Disease History Infectious Disease History: Reports: Hepatitis B - Past Surgical History GI Surgical History: Reports: Appendectomy, Other (See Below) Other GI Surgeries/Procedures: laporoscopy exploritory lap found PID Social & Family History - Family History Family Medical History: Unobtainable - Tobacco Use Smoking Status *Q: Heavy Tobacco Smoker Years of Tobacco use: 32 Packs/Tins Daily: 0.4 - Caffeine Use Caffeine Use: Reports: Coffee - Recreational Drug Use Recreational Drug Use: Yes Recreational Drug Type: Reports: Marijuana/Hashish, Methamphetamine Other Recreational Drug Type: not use for a couple of months ED ROS GENERAL - Review of Systems Review Of Systems: See Below - Physical Exam Exam: See Below Text/Narrative:: Pt left ama so she could keep a visit with her home care nurse. Course - Vital Signs Last Recorded V/S: Last Vital Signs Temp 36.6 C 05/13/18 13:26 Pulse 82 05/13/18 13:26 Resp BP 95/67 05/13/18 13:26 Pulse Ox - Orders/Labs/Meds Meds: Medications Discontinued Medications Generic Name Dose Route Start Last Admin Trade Name Freq PRN Reason Stop Dose Admin Diphenhydramine HCl 25 mg 05/13/18 13:27 Benadryl IVPUSH 05/13/18 13:28 ONETIME ONE Sodium Chloride 1,000 mls @ 500 mls/hr 05/13/18 13:30 Normal Saline IV ASDIRECTED TYLER Ketorolac Tromethamine 30 mg 05/13/18 13:28 Toradol IVPUSH 05/13/18 13:29 ONETIME ONE Prochlorperazine Edisylate 10 mg 05/13/18 13:28 Compazine IVPUSH 05/13/18 13:29 ONETIME ONE Departure - Departure Time of Disposition: 13:44 Disposition: Eloped 07 Clinical Impression: Migraine headache - Discharge Information Referrals: Marta Powell MD [Primary Care Provider] - Forms: ED Department Discharge Care Plan Goals: pt left ama.
== END 2018-05-13 13:37 | disposition left against medical advice (07) ==
LOC: JP.ED 12:41
DX: G43.909 Migraine, unspecified, not intractable, without status migrainosus (principal); F17.210 Nicotine dependence, cigarettes, uncomplicated; E78.00 Pure hypercholesterolemia, unspecified; J45.909 Unspecified asthma, uncomplicated; E05.90 Thyrotoxicosis, unspecified without thyrotoxic crisis or storm; F41.9 Anxiety disorder, unspecified; F32.9 Major depressive disorder, single episode, unspecified; Z79.899 Other long term (current) drug therapy; Z91.030 Bee allergy status; Z88.5 Allergy status to narcotic agent; Z91.040 Latex allergy status; Z91.018 Allergy to other foods; Z88.8 Allergy status to other drugs, medicaments and biological substances
CPT/HCPCS: 96374; 96375; 99284-25

== ENCOUNTER 2018-05-21 14:26 | Emergency (ER) | payer MEDICARE, MEDICAID ==
[2018-05-21 15:14] VITALS: BP 124/93
--- NOTE | 2018-05-21 16:39 | EDM.PDOCBH ---
ED HPI GENERAL MEDICAL PROBLEM - General Chief Complaint: Behavioral/Psych Stated Complaint: NOT SLEEPING MENTAL EVEL Time Seen by Provider: 05/21/18 15:10 Source of Information: Reports: Patient, Provider History Limitations: Reports: No Limitations - History of Present Illness INITIAL COMMENTS - FREE TEXT/NARRATIVE: 53-year-old female went into the clinic today for a depression follow-up, admitted to her primary provider should she was doing methamphetamine and having very emotional episodes even some feelings of self-harm so she was sent over to the emergency room. Now that she is here she is more remorseful, is denying being suicidal. Onset: Unknown/Unsure Associated Symptoms: Reports: No Other Symptoms Abdominal Pain Score (Numeric/FACES): 8 - Related Data Allergies Allergy/AdvReac Type Severity Reaction Status Date / Time bee pollen Allergy Anaphylactic Verified 05/21/18 15:15 Shock butorphanol tartrate Allergy Rash Verified 05/21/18 15:15 [From Stadol] latex Allergy Itching Verified 05/21/18 15:15 meperidine HCl [From Demerol] Allergy Itching Verified 05/21/18 15:15 mold Allergy Cannot Verified 05/21/18 15:15 Remember Home Meds: Home Meds Amitriptyline HCl 50 mg PO BEDTIME 06/12/14 [History] Aspirin 325 mg PO DAILY 06/12/14 [History] Baclofen 10 mg PO TID PRN 06/12/14 [History] Simvastatin 20 mg PO BEDTIME 06/12/14 [History] Topiramate [Topamax] 100 mg PO BID 06/12/14 [History] Cholecalciferol (Vitamin D3) [Vitamin D3] 1,000 mg PO BID 09/05/15 [History] Thiamine HCl [B-1] 100 mg PO DAILY 09/03/16 [History] SUMAtriptan Succinate [Sumatriptan Succinate] 25 mg PO BID PRN 06/02/17 [History ] Cetirizine [ZyrTEC] 10 mg PO DAILY 09/30/17 [History] Gabapentin [Neurontin] 300 mg PO TID 09/30/17 [History] Ibuprofen 600 mg PO Q8H PRN 09/30/17 [History] LORazepam 1 mg PO DAILY 09/30/17 [History] Lactose 30 ml PO DAILY 09/30/17 [History] Multivitamin with Minerals [Multiple Vitamin] 1 tab PO DAILY 09/30/17 [History] Polyethylene Glycol 3350 [Laxaclear] 17 gram PO DAILY 09/30/17 [History] Sennosides/Docusate Sodium [Senna-Docusate Sodium] 1 tab PO BID 09/30/17 [ History] Dextran 70/Hypromellose/PF [Artificial Tears Drops] 1 each EYEBOTH DAILY [History] EPINEPHrine [Epipen] 0.3 mg IM ASDIRECTED PRN 02/18/18 [History] Lactulose [Cephulac] 30 ml PO DAILY 02/18/18 [History] Potassium Chloride 20 meq PO BID 02/18/18 [History] Ranitidine HCl [Ranitidine] 150 mg PO BID 02/18/18 [History] Sertraline [Zoloft] 150 mg PO DAILY 02/18/18 [History] Venlafaxine [Effexor XR] 150 mg PO DAILY 02/18/18 [History] Past Medical History HEENT History: Reports: Impaired Vision, Other (See Below) Other HEENT History: Top and bottom dentures Cardiovascular History: Reports: High Cholesterol Respiratory History: Reports: Asthma Gastrointestinal History: Reports: Chronic 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, 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 History: Reports: Fracture Other 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 History: Left arm Neurological History: Reports: CVA, Migraines, Seizure, Other (See Below) Other Neuro History: has brace on left leg Psychiatric History: Reports: Addiction, Anxiety, Depression, Suicide Attempt Endocrine/Metabolic History: Reports: Hyperthyroidism Hematologic History: Reports: B12 Deficiency Immunologic History: Reports: Other (See Below) Other Immunologic History: hepatitis b Oncologic (Cancer) History: Reports: Cervix Dermatologic History: Reports: Other (See Below) Other Dermatologic History: dry sensitive skin - Infectious Disease History Infectious Disease History: Reports: Hepatitis B - Past Surgical History GI Surgical History: Reports: Appendectomy, Other (See Below) Other GI Surgeries/Procedures: laporoscopy exploritory lap found PID Social & Family History - Family History Family Medical History: Unobtainable - Tobacco Use Smoking Status *Q: Light Tobacco Smoker Years of Tobacco use: 35 Packs/Tins Daily: 0.5 - Caffeine Use Caffeine Use: Reports: Coffee - Recreational Drug Use Recreational Drug Use: Yes Recreational Drug Type: Reports: Methamphetamine ED ROS GENERAL - Review of Systems Review Of Systems: See Below Constitutional: Denies: Fever, Chills Respiratory: Denies: Shortness of Breath GI/Abdominal: Denies: Abdominal Pain, Nausea, Vomiting : Reports: No Symptoms Neurological: Denies: Headache Psychiatric: Reports: Anxiety, Depression ED EXAM, BEHAVIORAL HEALTH - Physical Exam Exam: See Below Exam Limited By: No Limitations General Appearance: Alert, No Apparent Distress, Other (Appears older than stated age) Throat/Mouth: Other (Patient is edentulous) Head: Atraumatic Respiratory/Chest: No Respiratory Distress, Lungs Clear Cardiovascular: Regular Rate, Rhythm. No: Tachycardia Extremities: No: Pedal Edema Neurological: Alert, No Motor/Sensory Deficits, Oriented x 3 Psychiatric: Alert, Depressed Mood, Flat Affect. No: Tearful COURSE, BEHAVIORAL HEALTH COMP - Course Vital Signs: Last Vital Signs Temp 98.4 F 05/21/18 15:13 Pulse 86 05/21/18 15:13 Resp 15 05/21/18 15:13 BP 124/93 H 05/21/18 15:13 Pulse Ox 96 05/21/18 15:13 Orders, Labs, Meds: Active Orders 24 hr Category Date Time Status DRUG SCREEN, URINE [URCHEM] Stat Lab 05/21/18 15:39 Ordered UA W/MICROSCOPIC [URIN] Urgent Lab 05/21/18 15:39 Ordered Laboratory Tests 05/21/18 05/21/18 05/21/18 Range/Units 15:39 15:39 15:39 WBC 8.9 (4.5-11.0) K/uL RBC 5.03 (3.30-5.50) M/uL Hgb 14.7 D (12.0-15.0) g/dL Hct 44.6 (36.0-48.0) % MCV 89 (80-98) fL MCH 29 (27-31) pg MCHC 33 (32-36) % Plt Count 246 (150-400) K/uL Neut % (Auto) 61 (36-66) % Lymph % (Auto) 27 (24-44) % [place] % (Auto) 11 H (2-6) % Eos % (Auto) 1 L (2-4) % Baso % (Auto) 0 (0-1) % Sodium (140-148) mmol/L Potassium (3.6-5.2) mmol/L Chloride (100-108) mmol/L Carbon Dioxide (21-32) mmol/L Anion Gap (5.0-14.0) mmol/L BUN (7-18) mg/dL Creatinine (0.6-1.0) mg/dL Est Cr Clr Drug Dosing mL/min Estimated GFR (MDRD) (>60) Glucose (74-106) mg/dL Calcium (8.5-10.1) mg/dL Total Bilirubin (0.2-1.0) mg/dL AST (15-37) U/L ALT (12-78) U/L Alkaline Phosphatase (46-116) U/L Total Protein (6.4-8.2) g/dL Albumin (3.4-5.0) g/dL Globulin (2.3-3.5) g/dL Albumin/Globulin Ratio (1.2-2.2) Urine Color Yellow Urine Appearance Cloudy Urine pH 6.0 (4.5-8.0) Ur Specific [place] 1.020 (1.008-1.030) Urine Protein Negative (NEGATIVE) mg/dL Urine Glucose (UA) Normal (NEGATIVE) mg/dL Urine Ketones Negative (NEGATIVE) mg/dL Urine Occult Blood Negative (NEGATIVE) Urine Nitrite Negative (NEGATIVE) Urine Bilirubin Small (NEGATIVE) Urine Urobilinogen 1 (NORMAL) mg/dL Ur Leukocyte Esterase Small (NEGATIVE) Urine RBC 0-5 (0-5) Urine WBC 5-10 H (0-5) Ur Epithelial Cells Many Amorphous Sediment Moderate Urine Bacteria Moderate Urine Mucus Many Urine Other See note Urine Opiates Screen Presumptive positive H (NEGATIVE) Ur Oxycodone Screen Negative (NEGATIVE) Urine Methadone Screen Negative (NEGATIVE) Ur Propoxyphene Screen Negative (NEGATIVE) Ur Barbiturates Screen Negative (NEGATIVE) Ur Tricyclics Screen Presumptive positive H (NEGATIVE) Ur Phencyclidine Scrn Negative (NEGATIVE) Ur Amphetamine Screen Presumptive positive H (NEGATIVE) U Methamphetamines Scrn Presumptive positive H (NEGATIVE) Urine MDMA Screen Negative (NEGATIVE) U Benzodiazepines Scrn Negative (NEGATIVE) U Cocaine Metab Screen Negative (NEGATIVE) U Marijuana (THC) Screen Presumptive positive H (NEGATIVE) 05/21/18 Range/Units 15:39 WBC (4.5-11.0) K/uL RBC (3.30-5.50) M/uL Hgb (12.0-15.0) g/dL Hct (36.0-48.0) % MCV (80-98) fL MCH (27-31) pg MCHC (32-36) % Plt Count (150-400) K/uL Neut % (Auto) (36-66) % Lymph % (Auto) (24-44) % [place] % (Auto) (2-6) % Eos % (Auto) (2-4) % Baso % (Auto) (0-1) % Sodium 141 (140-148) mmol/L Potassium 4.3 (3.6-5.2) mmol/L Chloride 107 (100-108) mmol/L Carbon Dioxide 24 (21-32) mmol/L Anion Gap 10.4 (5.0-14.0) mmol/L BUN 16 D (7-18) mg/dL Creatinine 0.9 (0.6-1.0) mg/dL Est Cr Clr Drug Dosing 59.01 mL/min Estimated GFR (MDRD) > 60 (>60) Glucose 92 (74-106) mg/dL Calcium 9.6 (8.5-10.1) mg/dL Total Bilirubin 0.3 D (0.2-1.0) mg/dL AST 15 (15-37) U/L ALT 19 (12-78) U/L Alkaline Phosphatase 104 (46-116) U/L Total Protein 7.5 (6.4-8.2) g/dL Albumin 4.0 (3.4-5.0) g/dL Globulin 3.5 (2.3-3.5) g/dL Albumin/Globulin Ratio 1.1 L (1.2-2.2) Urine Color Urine Appearance Urine pH (4.5-8.0) Ur Specific [place] (1.008-1.030) Urine Protein (NEGATIVE) mg/dL Urine Glucose (UA) (NEGATIVE) mg/dL Urine Ketones (NEGATIVE) mg/dL Urine Occult Blood (NEGATIVE) Urine Nitrite (NEGATIVE) Urine Bilirubin (NEGATIVE) Urine Urobilinogen (NORMAL) mg/dL Ur Leukocyte Esterase (NEGATIVE) Urine RBC (0-5) Urine WBC (0-5) Ur Epithelial Cells Amorphous Sediment Urine Bacteria Urine Mucus Urine Other Urine Opiates Screen (NEGATIVE) Ur Oxycodone Screen (NEGATIVE) Urine Methadone Screen (NEGATIVE) Ur Propoxyphene Screen (NEGATIVE) Ur Barbiturates Screen (NEGATIVE) Ur Tricyclics Screen (NEGATIVE) Ur Phencyclidine Scrn (NEGATIVE) Ur Amphetamine Screen (NEGATIVE) U Methamphetamines Scrn (NEGATIVE) Urine MDMA Screen (NEGATIVE) U Benzodiazepines Scrn (NEGATIVE) U Cocaine Metab Screen (NEGATIVE) U Marijuana (THC) Screen (NEGATIVE) Re-Assessment/Re-Exam: CBC and CMP were normal, urine drug screen was positive for opiates, methamphetamine and marijuana. Patient was willing to go to detox but [facility] was full at this time, a anabaptist friend is willing to watch her for the next 48 hours and they will call [facility] for admission in the next 2 days if needed. Departure - Departure Time of Disposition: 16:47 Disposition: Home, Self-Care 01 Condition: Fair Clinical Impression: Methamphetamine abuse, Depressive disorder - Discharge Information Instructions: Stimulant Use Disorder-Methamphetamines Referrals: Marta Powell MD [Primary Care Provider] - Forms: ED Department Discharge Care Plan Goals: Avoid illicit drug use and enter detox if needed to avoid further methamphetamine abuse. Return to the emergency room if you become more emotionally upset such as suicidal or have feelings of self-harm. - My Orders Last 24 Hours: My Active Orders 05/21/18 15:39 DRUG SCREEN, URINE [URCHEM] Stat UA W/MICROSCOPIC [URIN] Urgent - Assessment/Plan Last 24 Hours: My Active Orders 05/21/18 15:39 DRUG SCREEN, URINE [URCHEM] Stat UA W/MICROSCOPIC [URIN] Urgent
== END 2018-05-21 16:47 | disposition home or self-care (01) ==
LOC: JP.ED 14:26
DX: F15.10 Other stimulant abuse, uncomplicated (principal); F32.9 Major depressive disorder, single episode, unspecified; E78.00 Pure hypercholesterolemia, unspecified; J45.909 Unspecified asthma, uncomplicated; F17.210 Nicotine dependence, cigarettes, uncomplicated; Z86.73 Personal history of transient ischemic attack (TIA), and cerebral infarction without residual deficits; F41.9 Anxiety disorder, unspecified; E05.90 Thyrotoxicosis, unspecified without thyrotoxic crisis or storm; Z88.8 Allergy status to other drugs, medicaments and biological substances; Z91.030 Bee allergy status; Z79.82 Long term (current) use of aspirin; Z79.899 Other long term (current) drug therapy
CPT/HCPCS: 36415; 80053; 80305; 81001; 85025; 99282; 99285

== ENCOUNTER 2018-12-13 10:00 | Emergency (ER) | payer MEDICARE, MEDICAID ==
[2018-12-13] MEDS ORDERED: Ibuprofen 600 MG Tab PO ONE (10:31)
[2018-12-13] MEDS ORDERED: SUMAtriptan 50 MG Tab PO ONE (10:32)
[2018-12-13 10:36] VITALS: BP 111/58
--- NOTE | 2018-12-13 10:37 | EDM.PDOC ---
ED HPI GENERAL MEDICAL PROBLEM - General Chief Complaint: Headache Stated Complaint: MIGRANE Time Seen by Provider: 12/13/18 10:20 Source of Information: Reports: Patient History Limitations: Reports: No Limitations - History of Present Illness INITIAL COMMENTS - FREE TEXT/NARRATIVE: 53-year-old female was in [place] when she started developing a vascular headache , a migraine type headache that is typical for her. If she was at home she would take Imitrex and ibuprofen and that usually helps. She did not have her medications with her however, when they left [place] she was on her way to her friend's house and they thought it would be quicker to drop into the emergency room and get this treated rather than go home. She has no vomiting, no fever, no recent trauma. She did have some typical symptoms of feeling unsteady or dizzy prior to the headache starting. Duration: Hour(s): (Within the last hour) Headache Pain Score (Numeric/FACES): 6 - Related Data Allergies Allergy/AdvReac Type Severity Reaction Status Date / Time bee pollen Allergy Anaphylactic Verified 12/13/18 10:20 Shock butorphanol tartrate Allergy Rash Verified 12/13/18 10:20 [From Stadol] latex Allergy Itching Verified 12/13/18 10:20 meperidine HCl [From Demerol] Allergy Itching Verified 12/13/18 10:20 mold Allergy Cannot Verified 12/13/18 10:20 Remember Home Meds: Home Meds Amitriptyline HCl 50 mg PO BEDTIME 06/12/14 [History] Aspirin 325 mg PO DAILY 06/12/14 [History] Baclofen 10 mg PO TID PRN 06/12/14 [History] Simvastatin 20 mg PO BEDTIME 06/12/14 [History] Topiramate [Topamax] 100 mg PO BID 06/12/14 [History] Cholecalciferol (Vitamin D3) [Vitamin D3] 1,000 mg PO BID 09/05/15 [History] Thiamine HCl [B-1] 100 mg PO DAILY 09/03/16 [History] SUMAtriptan succinate [Sumatriptan Succinate] 25 mg PO BID PRN 06/02/17 [History ] Cetirizine [ZyrTEC] 10 mg PO DAILY 09/30/17 [History] Gabapentin [Neurontin] 300 mg PO TID 09/30/17 [History] Ibuprofen 600 mg PO Q8H PRN 09/30/17 [History] LORazepam 1 mg PO BID PRN 09/30/17 [History] Multivitamin with Minerals [Multiple Vitamin] 1 tab PO DAILY 09/30/17 [History] Polyethylene Glycol 3350 [Laxaclear] 17 gram PO DAILY PRN 09/30/17 [History] Sennosides/Docusate Sodium [Senna-Docusate Sodium] 1 tab PO BID 09/30/17 [ History] Dextran 70/Hypromellose/PF [Artificial Tears Drops] 1 each EYEBOTH DAILY [History] EPINEPHrine [Epipen] 0.3 mg IM ASDIRECTED PRN 02/18/18 [History] Lactulose [Cephulac] 30 ml PO DAILY 02/18/18 [History] Potassium Chloride 20 meq PO BID 02/18/18 [History] Ranitidine HCl [Ranitidine] 150 mg PO BID 02/18/18 [History] Sertraline [Zoloft] 150 mg PO DAILY 02/18/18 [History] Venlafaxine [Effexor XR] 150 mg PO DAILY 02/18/18 [History] Past Medical History HEENT History: Reports: Impaired Vision, Other (See Below) Other HEENT History: Top and bottom dentures Cardiovascular History: Reports: High Cholesterol Respiratory History: Reports: Asthma Gastrointestinal History: Reports: Chronic 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, 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 History: Reports: Fracture Other 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 History: Left arm Neurological History: Reports: CVA, Migraines, Seizure, Other (See Below) Other Neuro History: has brace on left leg Psychiatric History: Reports: Addiction, Anxiety, Depression, Suicide Attempt Endocrine/Metabolic History: Reports: Hyperthyroidism Hematologic History: Reports: B12 Deficiency Immunologic History: Reports: Other (See Below) Other Immunologic History: hepatitis b Oncologic (Cancer) History: Reports: Cervix Dermatologic History: Reports: Other (See Below) Other Dermatologic History: dry sensitive skin - Infectious Disease History Infectious Disease History: Reports: Hepatitis B - Past Surgical History GI Surgical History: Reports: Appendectomy, Other (See Below) Other GI Surgeries/Procedures: laporoscopy exploritory lap found PID Social & Family History - Family History Family Medical History: Unobtainable - Tobacco Use Smoking Status *Q: Light Tobacco Smoker Years of Tobacco use: 35 Packs/Tins Daily: 0.4 - Caffeine Use Caffeine Use: Reports: Coffee, Soda - Recreational Drug Use Recreational Drug Use: Yes Recreational Drug Type: Reports: Heroin, LSD (Acid), Marijuana/Hashish, Methamphetamine - Living Situation & Occupation Occupation: Disabled ED ROS GENERAL - Review of Systems Review Of Systems: See Below Constitutional: Denies: Fever, Chills HEENT: Denies: Vision Change Respiratory: Denies: Shortness of Breath GI/Abdominal: Reports: Nausea. Denies: Vomiting Neurological: Reports: Headache - Physical Exam Exam: See Below Exam Limited By: No Limitations General Appearance: Alert, No Apparent Distress Eye Exam: Bilateral Eye: EOMI Head Exam: Atraumatic Respiratory/Chest: No Respiratory Distress Neuro Exam (Abbreviated): Alert, Oriented. No: Disoriented, Slow to Respond Psychiatric: Flat Affect Skin Exam: Warm, Dry Course - Vital Signs Last Recorded V/S: Last Vital Signs Temp 95.9 F 12/13/18 10:24 Pulse 80 12/13/18 10:24 Resp 16 12/13/18 10:24 BP 111/58 L 12/13/18 10:24 Pulse Ox 99 12/13/18 10:24 - Orders/Labs/Meds Meds: Medications Discontinued Medications Generic Name Dose Route Start Last Admin Trade Name Collin PRJosseline Reason Stop Dose Admin Ibuprofen 600 mg 12/13/18 10:31 12/13/18 10:59 Motrin PO 12/13/18 10:32 600 mg ONETIME ONE Administration Sumatriptan Succinate 50 mg 12/13/18 10:32 12/13/18 10:59 Imitrex PO 12/13/18 10:33 50 mg ONETIME ONE Administration - Re-Assessments/Exams Free Text/Narrative Re-Assessment/Exam: 12/13/18 10:36 Patient was given 600 mg of oral ibuprofen and 50 mg of oral Imitrex. She can return if not improving satisfactorily later this afternoon. 12/13/18 10:41 Patient looked comfortable on discharge. She'll return later today if worsening. Departure - Departure Time of Disposition: 11:09 Disposition: Home, Self-Care 01 Condition: Good Clinical Impression: Migraine - Discharge Information Instructions: Migraine Headache, [id number] Referrals: Marta Powell MD [Primary Care Provider] - Forms: ED Department Discharge Care Plan Goals: Continue your current medications, return as needed.
== END 2018-12-13 11:09 | disposition home or self-care (01) ==
LOC: JP.ED 10:00
DX: G43.909 Migraine, unspecified, not intractable, without status migrainosus (principal); J45.909 Unspecified asthma, uncomplicated; E78.00 Pure hypercholesterolemia, unspecified; R56.9 Unspecified convulsions; F32.9 Major depressive disorder, single episode, unspecified; E05.90 Thyrotoxicosis, unspecified without thyrotoxic crisis or storm; F17.200 Nicotine dependence, unspecified, uncomplicated; F41.9 Anxiety disorder, unspecified; Z86.19 Personal history of other infectious and parasitic diseases; Z86.73 Personal history of transient ischemic attack (TIA), and cerebral infarction without residual deficits; Z90.89 Acquired absence of other organs; Z98.890 Other specified postprocedural states
CPT/HCPCS: 99283; A9270

== ENCOUNTER 2019-06-24 14:50 | Emergency (ER) | payer MEDICARE, MEDICAID ==
[2019-06-24 15:05] VITALS: BP 91/67; PULSE 96
--- NOTE | 2019-06-24 15:38 | EDM.PDOC ---
ED HPI GENERAL MEDICAL PROBLEM - General Chief Complaint: Chest Pain Stated Complaint: MED [facility] Time Seen by Provider: 06/24/19 15:05 Source of Information: Reports: Patient, EMS History Limitations: Reports: No Limitations - History of Present Illness INITIAL COMMENTS - FREE TEXT/NARRATIVE: 54-year-old female with a history of a stroke, polysubstance abuse presents by ambulance after struggling with a pressure sensation in her chest for the past 2 hours. She felt like it was hard to breathe and was nauseated. No cough, some diaphoresis. She called the ambulance and in route they did an EKG which was normal. The pain seemed to subside in route without treatment. She now just feels "a little funny", no shortness of breath or significant pain. Onset: Sudden Duration: Hour(s): (2-3 hours ago) Location: Reports: Chest Improves with: Reports: None Worsens with: Reports: None Associated Symptoms: Reports: Chest Pain, Diaphoresis, Malaise, Nausea/Vomiting , Shortness of Breath. Denies: Confusion, Cough, Fever/Chills, Weakness Chest Pain Score (Numeric/FACES): 8 - Related Data Allergies Allergy/AdvReac Type Severity Reaction Status Date / Time bee pollen Allergy Anaphylactic Verified 06/24/19 15:20 Shock butorphanol tartrate Allergy Rash Verified 06/24/19 15:20 [From Stadol] latex Allergy Itching Verified 06/24/19 15:20 meperidine HCl [From Demerol] Allergy Itching Verified 06/24/19 15:20 mold Allergy Cannot Verified 06/24/19 15:20 Remember Home Meds: Home Meds Amitriptyline HCl 50 mg PO BEDTIME 06/12/14 [History] Aspirin 325 mg PO DAILY 06/12/14 [History] Baclofen 10 mg PO TID PRN 06/12/14 [History] Simvastatin 20 mg PO BEDTIME 06/12/14 [History] Topiramate [Topamax] 100 mg PO BID 06/12/14 [History] Cholecalciferol (Vitamin D3) [Vitamin D3] 1,000 mg PO BID 09/05/15 [History] Thiamine HCl [B-1] 100 mg PO DAILY 09/03/16 [History] SUMAtriptan succinate [Sumatriptan Succinate] 25 mg PO BID PRN 06/02/17 [History ] Cetirizine [ZyrTEC] 10 mg PO DAILY 09/30/17 [History] Gabapentin [Neurontin] 300 mg PO TID 09/30/17 [History] Ibuprofen 600 mg PO Q8H PRN 09/30/17 [History] LORazepam 1 mg PO BID PRN 09/30/17 [History] Multivitamin with Minerals [Multiple Vitamin] 1 tab PO DAILY 09/30/17 [History] Polyethylene Glycol 3350 [Laxaclear] 17 gram PO DAILY PRN 09/30/17 [History] Sennosides/Docusate Sodium [Senna-Docusate Sodium] 1 tab PO BID 09/30/17 [ History] Dextran 70/Hypromellose/PF [Artificial Tears Drops] 1 each EYEBOTH DAILY [History] EPINEPHrine [Epipen] 0.3 mg IM ASDIRECTED PRN 02/18/18 [History] Lactulose [Cephulac] 30 ml PO DAILY 02/18/18 [History] Potassium Chloride 20 meq PO BID 02/18/18 [History] Ranitidine HCl [Ranitidine] 150 mg PO BID 02/18/18 [History] Sertraline [Zoloft] 150 mg PO DAILY 02/18/18 [History] Venlafaxine [Effexor XR] 150 mg PO DAILY 02/18/18 [History] Past Medical History HEENT History: Reports: Impaired Vision, Other (See Below) Other HEENT History: Top and bottom dentures Cardiovascular History: Reports: High Cholesterol Respiratory History: Reports: Asthma Gastrointestinal History: Reports: Chronic 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 [employer] History: Reports: PID, 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 History: Reports: Fracture Other 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 History: Left arm Neurological History: Reports: CVA, Migraines, Seizure, Other (See Below) Other Neuro History: has brace on left leg Psychiatric History: Reports: Addiction, Anxiety, Depression, Suicide Attempt Endocrine/Metabolic History: Reports: Hyperthyroidism Hematologic History: Reports: B12 Deficiency Immunologic History: Reports: Other (See Below) Other Immunologic History: hepatitis b Oncologic (Cancer) History: Reports: Cervix Dermatologic History: Reports: Other (See Below) Other Dermatologic History: dry sensitive skin - Infectious Disease History Infectious Disease History: Reports: Hepatitis B - Past Surgical History GI Surgical History: Reports: Appendectomy, Other (See Below) Other GI Surgeries/Procedures: laporoscopy exploritory lap found PID Social & Family History - Family History Family Medical History: Unobtainable - Tobacco Use Smoking Status *Q: Light Tobacco Smoker Years of Tobacco use: 36 Packs/Tins Daily: 0.5 - Caffeine Use Caffeine Use: Reports: Coffee, Soda - Recreational Drug Use Recreational Drug Use: No - Living Situation & Occupation Occupation: Disabled ED ROS GENERAL - Review of Systems Review Of Systems: See Below Constitutional: Reports: Malaise. Denies: Fever, Chills HEENT: Reports: No Symptoms Respiratory: Reports: Shortness of Breath. Denies: Cough Cardiovascular: Reports: Chest Pain (Pressure). Denies: Palpitations GI/Abdominal: Reports: Abdominal Pain, Nausea. Denies: Vomiting Skin: Reports: No Symptoms Neurological: Denies: Headache ED EXAM, GENERAL - Physical Exam Exam: See Below Exam Limited By: No Limitations General Appearance: Alert, No Apparent Distress Eye Exam: Bilateral Eye: Normal Inspection Head: Atraumatic Respiratory/Chest: No Respiratory Distress, Lungs Clear, Other (Any palpation to the lower sternum her upper abdomen is sore, she also has generalized soreness to the abdominal wall) Cardiovascular: Regular Rate, Rhythm GI/Abdominal: Soft, Tender (Diffuse tenderness to palpation, no guarding or focal tenderness) Neurological: Other (Extremities are very thin, no edema) Skin Exam: Warm, Dry Course - Vital Signs Last Recorded V/S: Last Vital Signs Temp 97.1 F 06/24/19 15:18 Pulse 96 06/24/19 15:18 Resp 15 06/24/19 15:18 BP 91/67 06/24/19 15:18 Pulse Ox 98 06/24/19 15:18 - Orders/Labs/Meds Labs: Laboratory Tests 06/24/19 06/24/19 Range/Units 15:06 15:06 WBC 8.1 (4.5-11.0) K/uL RBC 4.61 (3.30-5.50) M/uL Hgb 13.4 (12.0-15.0) g/dL Hct 41.1 (36.0-48.0) % MCV 89 (80-98) fL MCH 29 (27-31) pg MCHC 33 (32-36) % Plt Count 210 (150-400) K/uL Neut % (Auto) 57 (36-66) % Lymph % (Auto) 33 (24-44) % Bledsoe % (Auto) 9 H (2-6) % Eos % (Auto) 2 (2-4) % Baso % (Auto) 0 (0-1) % Sodium 143 (140-148) mmol/L Potassium 4.0 (3.6-5.2) mmol/L Chloride 109 H (100-108) mmol/L Carbon Dioxide 24 (21-32) mmol/L Anion Gap 14.0 (5.0-14.0) mmol/L BUN 19 H (7-18) mg/dL Creatinine 1.1 H (0.6-1.0) mg/dL Est Cr Clr Drug Dosing 43.96 mL/min Estimated GFR (MDRD) 52 L (>60) Glucose 108 H (74-106) mg/dL Calcium 9.6 (8.5-10.1) mg/dL Troponin I < 0.017 (0.000-0.056) ng/mL - Re-Assessments/Exams Free Text/Narrative Re-Assessment/Exam: 06/24/19 15:39 EKG was not repeated, the EKG was of good quality by EMS and was normal. CBC, BMP and troponin were obtained. Vitals were stable and normal. 06/24/19 16:20 Patient's chest x-ray was normal, labs also returned normal, troponin was 0. Patient redeveloped no symptoms while in the emergency room. Departure - Departure Time of Disposition: 17:19 Disposition: Home, Self-Care 01 Clinical Impression: Atypical chest pain - Discharge Information Instructions: Nonspecific Chest Pain Referrals: PCP,None [Primary Care Provider] - Forms: ED Department Discharge Care Plan Goals: Continue your current medications, consider a recheck with your primary doctor at the clinic to discuss further evaluation of your swallowing problems. Return to the emergency room if chest pain recurs and is persistent.
--- NOTE | 2019-06-24 15:51 | CRLCR ---
INDICATION: Dyspnea TECHNIQUE: Chest 2 views. COMPARISON: June 02, 2017 FINDINGS: Cardiovascular and mediastinum: Heart size and vasculature are normal in caliber and appearance. Mediastinum is within normal limits. Lungs and pleural spaces: The lungs are hyperexpanded. No sign of infiltrate or mass. No sign of pleural effusion. No pneumothorax. Bones and soft tissues: No significant findings. IMPRESSION: Hyperexpanded lungs. No focal infiltrate, effusion, or pneumothorax. Dictated by Germaine Carrillo MD @ Jun 24 2019 3:49PM Signed by Dr. Germaine Carrillo @ Jun 24 2019 3:51PM
== END 2019-06-24 17:19 | disposition home or self-care (01) ==
LOC: JP.ED 14:50
DX: R07.89 Other chest pain (principal); E78.00 Pure hypercholesterolemia, unspecified; J45.909 Unspecified asthma, uncomplicated; F41.9 Anxiety disorder, unspecified; F32.9 Major depressive disorder, single episode, unspecified; E05.90 Thyrotoxicosis, unspecified without thyrotoxic crisis or storm; Z79.899 Other long term (current) drug therapy; Z79.82 Long term (current) use of aspirin; Z91.030 Bee allergy status; Z91.040 Latex allergy status; Z88.5 Allergy status to narcotic agent; Z91.048 Other nonmedicinal substance allergy status; Z88.8 Allergy status to other drugs, medicaments and biological substances; Z86.73 Personal history of transient ischemic attack (TIA), and cerebral infarction without residual deficits
CPT/HCPCS: 36415; 71046; 80048; 84484; 85025; 99284; 99285-25

== ENCOUNTER 2020-01-05 16:19 | Emergency (ER) | payer MEDICARE, MEDICAID ==
[2020-01-05 16:49] VITALS: BP 106/73; PULSE 79
[2020-01-05] MEDS ORDERED: Acetaminophen 325 MG Tab PO ONE (17:23)
[2020-01-05] MEDS ORDERED: Lactated Ringers 1,000 ML IV ONE (17:23)
[2020-01-05] MEDS ORDERED: Sodium Chloride 0.9% 10 ML Syringe FLUSH PRN (17:23)
--- NOTE | 2020-01-05 17:26 | EDM.PDOC ---
<OfficerSudheer - Last Filed: 01/05/20 18:16> ED HPI GENERAL MEDICAL PROBLEM - General Chief Complaint: Headache Stated Complaint: [facility] Time Seen by Provider: 01/05/20 17:14 Source of Information: Reports: Patient, Family, RN Notes Reviewed History Limitations: Reports: No Limitations - History of Present Illness INITIAL COMMENTS - FREE TEXT/NARRATIVE: 54-year-old female presents emergency department the complaint of headache, she had a sudden onset of headache sharp stabbing pain right temporal lobe developed right facial numbness right arm numbness she does have a history of migraines she states this is different than her migraine she has not tried her Imitrex. Does feel nauseated no photophobia Right Anterior Headache Pain Score (Numeric/FACES): 7 - Related Data Allergies Allergy/AdvReac Type Severity Reaction Status Date / Time bee pollen Allergy Anaphylactic Verified 06/24/19 15:20 Shock butorphanol tartrate Allergy Rash Verified 06/24/19 15:20 [From Stadol] latex Allergy Itching Verified 06/24/19 15:20 meperidine HCl [From Demerol] Allergy Itching Verified 06/24/19 15:20 mold Allergy Cannot Verified 06/24/19 15:20 Remember Home Meds: Home Meds Amitriptyline HCl 50 mg PO BEDTIME 06/12/14 [History] Baclofen 10 mg PO TID PRN 06/12/14 [History] Simvastatin 20 mg PO BEDTIME 06/12/14 [History] Topiramate [Topamax] 100 mg PO BID 06/12/14 [History] Cholecalciferol (Vitamin D3) [Vitamin D3] 1,000 mg PO BID 09/05/15 [History] Thiamine HCl [B-1] 100 mg PO DAILY 09/03/16 [History] SUMAtriptan succinate [Sumatriptan Succinate] 25 mg PO BID PRN 06/02/17 [History ] Cetirizine [ZyrTEC] 10 mg PO DAILY 09/30/17 [History] Gabapentin [Neurontin] 300 mg PO TID 09/30/17 [History] Ibuprofen 600 mg PO Q8H PRN 09/30/17 [History] Multivitamin with Minerals [Multiple Vitamin] 1 tab PO DAILY 09/30/17 [History] Polyethylene Glycol 3350 [Laxaclear] 17 gram PO DAILY PRN 09/30/17 [History] Sennosides/Docusate Sodium [Senna-Docusate Sodium] 1 tab PO BID 09/30/17 [ History] Dextran 70/Hypromellose/PF [Artificial Tears Drops] 1 each EYEBOTH DAILY [History] EPINEPHrine [Epipen] 0.3 mg IM ASDIRECTED PRN 02/18/18 [History] Potassium Chloride 20 meq PO BID 02/18/18 [History] Sertraline [Zoloft] 150 mg PO DAILY 02/18/18 [History] Venlafaxine [Effexor XR] 150 mg PO DAILY 02/18/18 [History] Omeprazole Magnesium [Prilosec Otc] 20 mg PO DAILY 01/05/20 [History] Past Medical History HEENT History: Reports: Impaired Vision, Other (See Below) Other HEENT History: Top and bottom dentures Cardiovascular History: Reports: High Cholesterol Respiratory History: Reports: Asthma Gastrointestinal History: Reports: Chronic 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 [employer] History: Reports: PID, 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 History: Reports: Fracture Other 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 History: Left arm Neurological History: Reports: CVA, Migraines, Seizure, Other (See Below) Other Neuro History: has brace on left leg, left arm deficit Psychiatric History: Reports: Addiction, Anxiety, Depression, Suicide Attempt Endocrine/Metabolic History: Reports: Hyperthyroidism Hematologic History: Reports: B12 Deficiency Immunologic History: Reports: Other (See Below) Other Immunologic History: hepatitis b Oncologic (Cancer) History: Reports: Cervix Dermatologic History: Reports: Other (See Below) Other Dermatologic History: dry sensitive skin - Infectious Disease History Infectious Disease History: Reports: Hepatitis B - Past Surgical History Head Surgeries/Procedures: Reports: None GI Surgical History: Reports: Appendectomy, Other (See Below) Other GI Surgeries/Procedures: laporoscopy exploritory lap found PID Social & Family History - Family History Family Medical History: Unobtainable - Tobacco Use Smoking Status *Q: Current Every Day Smoker Years of Tobacco use: 36 Packs/Tins Daily: 0.5 Used Tobacco, but Quit: No - Caffeine Use Caffeine Use: Reports: Coffee, Soda - Recreational Drug Use Recreational Drug Use: Yes Drug Use in Last 12 Months: Yes Recreational Drug Type: Reports: Marijuana/Hashish Recreational Drug Use Frequency: Daily - Living Situation & Occupation Occupation: Disabled ED ROS GENERAL - Review of Systems Review Of Systems: See Below Constitutional: Reports: No Symptoms HEENT: Reports: No Symptoms Respiratory: Reports: No Symptoms Cardiovascular: Reports: No Symptoms GI/Abdominal: Reports: Nausea Neurological: Reports: Headache, Numbness, Tingling - Physical Exam Exam: See Below Exam Limited By: No Limitations General Appearance: Alert, WD/WN, No Apparent Distress Eye Exam: Bilateral Eye: EOMI, Normal Fundi, PERRL Respiratory/Chest: No Respiratory Distress Neuro Exam (Abbreviated): Alert, Oriented, CN II-XII Intact, Normal Cognition, Other (No focal neurologic deficit). No: Unresponsive, Memory Loss Remote Events, Abnormal Reflexes Course - Vital Signs Last Recorded V/S: Last Vital Signs Temp 35.4 C L 01/05/20 16:48 Pulse 79 01/05/20 16:48 Resp 14 01/05/20 16:48 BP 106/73 01/05/20 16:48 Pulse Ox 100 01/05/20 16:48 - Orders/Labs/Meds Orders: Active Orders 24 hr Category Date Time Status Peripheral IV Care [RC] . DIRECTED Care 01/05/20 17:24 Active Sodium Chloride 0.9% [Saline Flush] Med 01/05/20 17:23 Active 10 ml FLUSH ASDIRECTED PRN Peripheral IV Insertion Adult [OM.PC] Urgent Oth 01/05/20 17:23 Ordered Medication Orders Sodium Chloride (Saline Flush) 10 ml FLUSH ASDIRECTED PRN PRN Reason: Keep Vein Open Meds: Medications Generic Name Dose Route Start Last Admin Trade Name Freq PRN Reason Stop Dose Admin Sodium Chloride 10 ml 01/05/20 17:23 Saline Flush FLUSH ASDIRECTED PRN Keep Vein Open Discontinued Medications Generic Name Dose Route Start Last Admin Trade Name Freq PRN Reason Stop Dose Admin Acetaminophen 650 mg 01/05/20 17:23 01/05/20 17:29 Tylenol PO 01/05/20 17:24 650 mg NOW ONE Administration Diphenhydramine HCl 25 mg 01/05/20 18:15 01/05/20 18:29 Benadryl IVPUSH 01/05/20 18:16 25 mg ONETIME ONE Administration Lactated Ringer's 1,000 mls @ 999 mls/hr 01/05/20 17:23 01/05/20 17:48 Ringers, Lactated IV 01/05/20 18:23 999 mls/hr BOLUS ONE Administration Ketorolac Tromethamine 30 mg 01/05/20 18:15 01/05/20 18:30 Toradol IVPUSH 01/05/20 18:16 30 mg ONETIME ONE Administration Departure - Departure Disposition: Home, Self-Care 01 Condition: Fair Clinical Impression: Migraine - Discharge Information Instructions: Migraine Headache, [id number] Referrals: PCP,None [Primary Care Provider] - Forms: ED Department Discharge Additional Instructions: Continue with your regular medications, please followup with your primary care provider in 3-5 days if not better, please call return to the emergency department with worsening of symptoms. Sepsis Event Note - Evaluation Sepsis Screening Result: No Definite Risk - Focused Exam Vital Signs: Vital Signs Temp Pulse Resp BP Pulse Ox 01/05/20 16:48 35.4 C L 79 14 106/73 100 Date Exam was Performed: 01/05/20 Time Exam was Performed: 18:16 - Assessment/Plan Plan: Assessment Acuity = acute Site and laterality = migraine type headache Etiology = unknown Manifestations = none Location of injury = Home Lab values = CT scan shows no acute process Plan Good relief combination Tylenol and Toradol also provided 1 L fluids and some Benadryl, plan to discharge home follow-up primary care 3 to 5 days if not better continue with regular medications This note was dictated using [employer] voice recognition software please call with any questions on syntax or grammar. <Kade Medley - Last Filed: 01/05/20 19:23> Departure - Departure Time of Disposition: 19:23 Sepsis Event Note - Focused Exam Date Exam was Performed: 01/05/20 Time Exam was Performed: 19:23
--- NOTE | 2020-01-05 18:06 | CRLCT ---
INDICATION: headache, right arm and right sided facial numbness hx stroke CT HEAD WITHOUT CONTRAST TECHNIQUE: Multiple axial CT images were performed through the head without intravenous contrast administration. COMPARISON: 02/18/[address] FINDINGS: No acute intracranial hemorrhage is identified. No extra-axial collections are evident and there is no mass effect or midline shift. There is mild diffuse age-related brain atrophy, similar to the previous exam. There is an unchanged chronic infarct involving the right basal ganglia and the adjacent anterior portions of the right temporal lobe, with associated exactly a enlargement of the right lateral ventricle. Ventricular size and configuration are otherwise within normal limits for the patient`s age. Dozier-white differentiation is within normal limits. There is unchanged mild patchy hypodensity in the periventricular white matter, a nonspecific finding which most likely reflects chronic small vessel ischemic change. There is a stable benign-appearing 2.2 centimeter cystic lucency in the low right occipital calvarium. Osseous structures are otherwise within normal limits and no fractures are seen. Included portions of the paranasal sinuses and mastoid air cells are normally aerated. IMPRESSION: 1. No acute intracranial abnormality identified. 2. Unchanged chronic infarct involving the right basal ganglia and anterior right temporal lobe. 3. Mild age-related brain atrophy and white matter hypodensity consistent with chronic small vessel ischemic change. OJ RUSSO MD [employer] Dictated by Lisandro Russo MD @ 01/05/2020 6:03:33 PM Dictated by: Lisandro Russo MD @ 01/05/2020 18:04:59 (Electronically Signed)
[2020-01-05] MEDS ORDERED: diphenhydrAMINE 50 MG/ML SDV IVPUSH ONE (18:15)
[2020-01-05] MEDS ORDERED: Ketorolac 30 MG/ML SDV IVPUSH ONE (18:15)
== END 2020-01-05 19:47 | disposition home or self-care (01) ==
LOC: JP.ED 16:19
DX: G43.909 Migraine, unspecified, not intractable, without status migrainosus (principal); E78.00 Pure hypercholesterolemia, unspecified; F41.9 Anxiety disorder, unspecified; F32.9 Major depressive disorder, single episode, unspecified; F17.210 Nicotine dependence, cigarettes, uncomplicated; Z88.8 Allergy status to other drugs, medicaments and biological substances; Z91.040 Latex allergy status; Z91.048 Other nonmedicinal substance allergy status; Z88.5 Allergy status to narcotic agent; Z79.899 Other long term (current) drug therapy; Z86.73 Personal history of transient ischemic attack (TIA), and cerebral infarction without residual deficits
CPT/HCPCS: 70450; 96361; 96374; 96375; 99284; A9270; J1200; J1885; J7120

== ENCOUNTER 2020-06-12 17:57 | Emergency (ER) | payer MEDICARE, MEDICAID ==
--- NOTE | 2020-06-12 18:27 | EDM.PDOC ---
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[employer]: Reports: Other (see below) (gabapentin) Right Abdomen Pain Score (Numeric/FACES): 9 - Related Data Allergies Allergy/AdvReac Type Severity Reaction Status Date / Time bee pollen Allergy Anaphylactic Verified 06/24/19 15:20 Shock butorphanol tartrate Allergy Rash Verified 06/24/19 15:20 [From Stadol] latex Allergy Itching Verified 06/24/19 15:20 meperidine HCl [From Demerol] Allergy Itching Verified 06/24/19 15:20 mold Allergy Cannot Verified 06/24/19 15:20 Remember Home Meds: Home Meds Amitriptyline HCl 50 mg PO BEDTIME 06/12/14 [History] Baclofen 10 mg PO TID PRN 06/12/14 [History] Simvastatin 20 mg PO BEDTIME 06/12/14 [History] Topiramate [Topamax] 100 mg PO BID 06/12/14 [History] Cholecalciferol (Vitamin D3) [Vitamin D3] 1,000 mg PO BID 09/05/15 [History] Thiamine HCl [B-1] 100 mg PO DAILY 09/03/16 [History] SUMAtriptan succinate [Sumatriptan Succinate] 25 mg PO BID PRN 06/02/17 [History] Cetirizine [ZyrTEC] 10 mg PO DAILY 09/30/17 [History] Gabapentin [Neurontin] 600 mg PO QID 09/30/17 [History] Ibuprofen 600 mg PO Q8H PRN 09/30/17 [History] Multivitamin with Minerals [Multiple Vitamin] 2 tab PO DAILY 09/30/17 [History] Sennosides/Docusate Sodium [Senna-Docusate Sodium] 1 tab PO BID 09/30/17 [Histor y] Dextran 70/Hypromellose/PF [Artificial Tears Drops] 1 each EYEBOTH DAILY 02/18/18 [History] EPINEPHrine [Epipen] 0.3 mg IM ASDIRECTED PRN 02/18/18 [History] Potassium Chloride 20 meq PO BID 02/18/18 [History] Sertraline [Zoloft] 150 mg PO DAILY 02/18/18 [History] Omeprazole Magnesium [Prilosec Otc] 20 mg PO DAILY 01/05/20 [History] EPINEPHrine [Epinephrine] 1 injection IM ASDIRECTED PRN 06/12/20 [History] LORazepam [Lorazepam] 1 tab PO ASDIRECTED PRN 06/12/20 [History] Past Medical History HEENT History: Reports: Impaired Vision, Other (See Below) Other HEENT History: Top and bottom dentures Cardiovascular History: Reports: High Cholesterol Respiratory History: Reports: Asthma Gastrointestinal History: Reports: Chronic 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, Other (See Below) (pt. is unsure if she's had an appendectomy) [employer]ENDANT History: Reports: PID, 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 History: Reports: Fracture Other 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 History: Left arm Neurological History: Reports: CVA, Migraines, Seizure, Other (See Below) Other Neuro History: has brace on left leg, left arm deficit Psychiatric History: Reports: Addiction, Anxiety, Depression, Suicide Attempt Endocrine/Metabolic History: Reports: Hyperthyroidism Hematologic History: Reports: B12 Deficiency Immunologic History: Reports: Other (See Below) Other Immunologic History: hepatitis b Oncologic (Cancer) History: Reports: Cervix Dermatologic History: Reports: Other (See Below) Other Dermatologic History: dry sensitive skin - Infectious Disease History Infectious Disease History: Reports: Hepatitis B - Past Surgical History Head Surgeries/Procedures: Reports: None GI Surgical History: Reports: Appendectomy, Other (See Below) Other GI Surgeries/Procedures: laporoscopy exploritory lap found PID Social & Family History - Family History Family Medical History: Unobtainable - Caffeine Use Caffeine Use: Reports: Coffee, Soda - Living Situation & Occupation Occupation: Disabled ED ROS GENERAL - Review of Systems Review Of Systems: See Below Constitutional: Denies: Fever HEENT: Reports: No Symptoms Respiratory: Reports: No Symptoms Cardiovascular: Reports: No Symptoms GI/Abdominal: Reports: Abdominal Pain (RLQ), 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 (No BM this AM). Denies: Anorexia, Bloody Stool, Diarrhea, Nausea, Vomiting : Denies: Dysuria, Frequency 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: Reports: Joint Pain, Muscle Pain, Muscle Stiffness Skin: Denies: Rash Neurological: Reports: No Symptoms Psychiatric: Reports: Anxiety ED EXAM, GI/ABD - Physical Exam Exam: See Below Text/Narrative:: Sleeping when I first enter exam room Exam Limited By: No Limitations General Appearance: Alert, WD/WN, No Apparent Distress Ears: Normal External Exam Nose: Normal Inspection Throat/Mouth: Other (dry mucous membranes.) Neck: Normal Inspection Respiratory/Chest: No Respiratory Distress, Lungs Clear Cardiovascular: Normal Peripheral Pulses, Regular Rate, Rhythm GI/Abdominal Exam: Guarding (RLQ), Tender, Abnormal Bowel Sounds (hyperactive) Course - Vital Signs Text/Narrative:: Initial diff Dx: appendicitis, constipation, ovarian pathology, kidney stone, UTI. Laboratory results unremarkable normal white blood cell count, no anemia. CT scan shows no acute abdominal pelvic process. CT scan shows no acute abdominal pelvic process there is a surgically absent appendix. no bowel obstruction or ileus no bowel obstruction or ileus. When I entered the room to give the patient laboratory results and CT scan results she was playing on her iPad and appeared in no distress at all. Last Recorded V/S: Last Vital Signs Temp 36.8 C 06/12/20 19:02 Pulse 85 06/12/20 20:26 Resp 16 06/12/20 19:02 BP 116/86 06/12/20 20:26 Pulse Ox 98 06/12/20 20:26 - Orders/Labs/Meds Orders: Active Orders 24 hr Category Date Time Status Iopamidol [Isovue-300 (61%)] Med 06/12/20 19:15 Active 100 ml IV . DIRECTED Sodium Chloride 0.9% [Normal Saline] 1,000 ml Med 06/12/20 18:45 Active IV ASDIRECTED Sodium Chloride 0.9% [Normal Saline] 80 ml Med 06/12/20 19:15 Active IV ASDIRECTED Medication Orders Sodium Chloride (Normal Saline) 1,000 mls @ 500 mls/hr IV ASDIRECTED TYLER Last Admin: 06/12/20 19:36 Dose: 500 mls/hr Documented by: CRUZ Sodium Chloride (Normal Saline) 80 mls @ 3 mls/sec IV ASDIRECTED TYLER Last Admin: 06/12/20 19:43 Dose: 3 mls/sec Documented by: ELVIA Iopamidol (Isovue-300 (61%)) 100 ml IV . DIRECTED TYLER Last Admin: 06/12/20 19:43 Dose: 100 ml Documented by: Molecular Sensing Labs: Laboratory Tests 06/12/20 06/12/20 06/12/20 Range/Units 18:54 18:54 18:54 WBC 8.7 (4.5-11.0) K/uL RBC 4.73 (3.30-5.50) M/uL Hgb 13.6 (12.0-15.0) g/dL Hct 42.5 (36.0-48.0) % MCV 90 (80-98) fL MCH 29 (27-31) pg MCHC 32 (32-36) % Plt Count 213 (150-400) K/uL Sodium 145 (140-148) mmol/L Potassium 4.1 (3.6-5.2) mmol/L Chloride 108 (100-108) mmol/L Carbon Dioxide 26 (21-32) mmol/L Anion Gap 11.2 (5.0-14.0) mmol/L BUN 14 (7-18) mg/dL Creatinine 1.0 (0.6-1.0) mg/dL Est Cr Clr Drug Dosing 53.25 mL/min Estimated GFR (MDRD) 58 L (>60) Glucose 103 (74-106) mg/dL Lactic Acid (0.4-2.0) mmol/L Calcium 9.4 (8.5-10.1) mg/dL Total Bilirubin 0.3 (0.2-1.0) mg/dL AST 15 (15-37) U/L ALT 15 (12-78) U/L Alkaline Phosphatase 108 (46-116) U/L Total Protein 7.1 (6.4-8.2) g/dL Albumin 4.0 (3.4-5.0) g/dL Globulin 3.1 (2.3-3.5) g/dL Albumin/Globulin Ratio 1.3 (1.2-2.2) Lipase 237 (73-393) U/L Urine Color (YELLOW) Urine Appearance (CLEAR) Urine pH (5.0-8.0) Ur Specific [place] (1.008-1.030) Urine Protein (NEGATIVE) mg/dL Urine Glucose (UA) (NEGATIVE) mg/dL Urine Ketones (NEGATIVE) mg/dL Urine Occult Blood (NEGATIVE) Urine Nitrite (NEGATIVE) Urine Bilirubin (NEGATIVE) Urine Urobilinogen (0.2-1.0) EU/dL Ur Leukocyte Esterase (NEGATIVE) Urine RBC (0-5) Urine WBC (0-5) Ur Epithelial Cells Amorphous Sediment Urine Bacteria Urine Mucus 06/12/20 06/12/20 Range/Units 18:54 20:59 WBC (4.5-11.0) K/uL RBC (3.30-5.50) M/uL Hgb (12.0-15.0) g/dL Hct (36.0-48.0) % MCV (80-98) fL MCH (27-31) pg MCHC (32-36) % Plt Count (150-400) K/uL Sodium (140-148) mmol/L Potassium (3.6-5.2) mmol/L Chloride (100-108) mmol/L Carbon Dioxide (21-32) mmol/L Anion Gap (5.0-14.0) mmol/L BUN (7-18) mg/dL Creatinine (0.6-1.0) mg/dL Est Cr Clr Drug Dosing mL/min Estimated GFR (MDRD) (>60) Glucose (74-106) mg/dL Lactic Acid 1.0 (0.4-2.0) mmol/L Calcium (8.5-10.1) mg/dL Total Bilirubin (0.2-1.0) mg/dL AST (15-37) U/L ALT (12-78) U/L Alkaline Phosphatase (46-116) U/L Total Protein (6.4-8.2) g/dL Albumin (3.4-5.0) g/dL Globulin (2.3-3.5) g/dL Albumin/Globulin Ratio (1.2-2.2) Lipase (73-393) U/L Urine Color Yellow (YELLOW) Urine Appearance Clear (CLEAR) Urine pH 5.5 (5.0-8.0) Ur Specific [place] 1.010 (1.008-1.030) Urine Protein Negative (NEGATIVE) mg/dL Urine Glucose (UA) Negative (NEGATIVE) mg/dL Urine Ketones Negative (NEGATIVE) mg/dL Urine Occult Blood Negative (NEGATIVE) Urine Nitrite Negative (NEGATIVE) Urine Bilirubin Negative (NEGATIVE) Urine Urobilinogen 0.2 (0.2-1.0) EU/dL Ur Leukocyte Esterase Negative (NEGATIVE) Urine RBC Not seen (0-5) Urine WBC Not seen (0-5) Ur Epithelial Cells Rare Amorphous Sediment Not seen Urine Bacteria Rare Urine Mucus Not seen Meds: Medications Generic Name Dose Route Start Last Admin Trade Name Freq PRN Reason Stop Dose Admin Sodium Chloride 1,000 mls @ 500 mls/hr 06/12/20 18:45 06/12/20 19:36 Normal Saline IV 500 mls/hr ASDIRECTED TYLER Administration Sodium Chloride 80 mls @ 3 mls/sec 06/12/20 19:15 06/12/20 19:43 Normal Saline IV 3 mls/sec ASDIRECTED TYLER Administration Iopamidol 100 ml 06/12/20 19:15 06/12/20 19:43 Isovue-300 (61%) IV 100 ml . DIRECTED TYLER Administration Discontinued Medications Generic Name Dose Route Start Last Admin Trade Name Freq PRN Reason Stop Dose Admin Hydromorphone HCl 0.5 mg 06/12/20 18:40 06/12/20 19:36 Dilaudid IVPUSH 06/12/20 18:41 0.5 mg ONETIME ONE Administration Departure - Departure Time of Disposition: 21:18 Disposition: Home, Self-Care 01 Condition: Good Clinical Impression: Abdominal pain Qualifiers: Abdominal location: right lower quadrant Qualified Code(s): R10.31 - Right lower quadrant pain - Discharge Information Instructions: Pain Without a Known Cause, Abdominal Pain, Adult Referrals: Pamela Brizuela PA-C [Primary Care Provider] - Forms: ED Department Discharge Additional Instructions: Emergent condition found to explain your abdominal pain. To rest, drink plenty of fluids, drink plenty of fluids, pain persists or gets worse, follow-up with your primary care provider. Sepsis Event Note (ED) - Focused Exam Vital Signs: Vital Signs Temp Pulse Resp BP Pulse Ox 06/12/20 20:26 85 116/86 98 06/12/20 19:02 36.8 C 86 16 128/84 98 06/12/20 18:14 36.8 C 86 16 128/84 98 - My Orders Last 24 Hours: My Active Orders 06/12/20 18:45 Sodium Chloride 0.9% [Normal Saline] 1,000 ml IV ASDIRECTED 06/12/20 19:15 Iopamidol [Isovue-300 (61%)] 100 ml IV . DIRECTED Sodium Chloride 0.9% [Normal Saline] 80 ml IV ASDIRECTED - Assessment/Plan Last 24 Hours: My Active Orders 06/12/20 18:45 Sodium Chloride 0.9% [Normal Saline] 1,000 ml IV ASDIRECTED 06/12/20 19:15 Iopamidol [Isovue-300 (61%)] 100 ml IV . DIRECTED Sodium Chloride 0.9% [Normal Saline] 80 ml IV ASDIRECTED
[2020-06-12] MEDS ORDERED: HYDROmorphone 0.5 MG/0.5 ML Syringe IVPUSH ONE (18:40)
[2020-06-12] MEDS ORDERED: Sodium Chloride 0.9% 1,000 ML IV SCH (18:45)
[2020-06-12] MEDS ORDERED: Iopamidol 612 MG/ML 100 ML Bottle IV SCH (19:15)
[2020-06-12] MEDS ORDERED: Sodium Chloride 0.9% 80 ML IV SCH (19:15)
[2020-06-12 20:27] VITALS: BP 116/86; PULSE 85
--- NOTE | 2020-06-12 20:40 | CRLCT ---
INDICATION: Right lower quadrant abdominal pelvic pain. Previous appendectomy. TECHNIQUE: Contrast-enhanced CT of the abdomen and pelvis. 100 cc nonionic Isovue-300 administered. COMPARISON: December 25, 2016. FINDINGS: Subcapsular hypodensities within the anterior right hepatic lobe entirely unchanged and therefore of doubtful clinical significance. No biliary ductal dilatation. Normal gallbladder, spleen, pancreas, and right adrenal gland. Mild hyperplasia of the left adrenal gland entirely unchanged. No hydronephrosis, renal stone, or renal mass. The abdominal aorta and iliac arteries are of normal caliber. Normal inferior vena cava. Surgically absent appendix. No bowel obstruction or ileus. No ascites or lymphadenopathy. The urinary bladder, uterus, and both adnexa are within normal limits. Calcified pelvic phleboliths. The included skeleton is unremarkable. IMPRESSION: 1. No acute abdominopelvic process identified. 2. Surgically absent appendix. 3. Stable subcapsular hypodensities in the right hepatic lobe of doubtful significance. Please note that all CT scans at this facility use dose modulation, iterative reconstruction, and/or weight-based dosing when appropriate to reduce radiation dose to as low as reasonably achievable. Dictated by Daniel Alcaraz MD @ Jun 12 2020 8:34PM Signed by Dr. Daniel Alcaraz @ Jun 12 2020 8:39PM
== END 2020-06-12 21:36 | disposition home or self-care (01) ==
LOC: JP.ED 17:57
DX: R10.31 Right lower quadrant pain (principal); E78.00 Pure hypercholesterolemia, unspecified; F41.9 Anxiety disorder, unspecified; F32.9 Major depressive disorder, single episode, unspecified; Z91.030 Bee allergy status; Z91.040 Latex allergy status; Z88.8 Allergy status to other drugs, medicaments and biological substances; Z91.048 Other nonmedicinal substance allergy status; Z79.899 Other long term (current) drug therapy; Z90.49 Acquired absence of other specified parts of digestive tract
CPT/HCPCS: 36415; 74177; 80053; 81001; 83605; 83690; 85027; 96374; 99284; J1170; J7030; J7050; Q9967

== ENCOUNTER 2021-02-28 18:32 | Emergency (ER) | payer MEDICARE, MEDICAID ==
[2021-02-28] MEDS ORDERED: Ketorolac 30 MG/ML SDV IM ONE (18:34)
[2021-02-28 18:38] VITALS: BP 141/97; PULSE 91
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
[2021-02-28] MEDS ORDERED: Ondansetron 4 MG Tab.DIS PO ONE (18:45)
--- NOTE | 2021-02-28 19:44 | CRLCT ---
INDICATION: Neck pain TECHNIQUE: CT cervical spine without contrast. COMPARISON: None FINDINGS: Vertebral alignment: Alignment is normal. Vertebrae: There are no fractures or suspicious bony lesions. Discs and facet joints: There are moderate multilevel degenerative disc and facet changes. Extraspinal findings: Paraspinous soft tissues are unremarkable. IMPRESSION: 1. No sign of acute injury. 2. Multilevel degenerative spondylosis. Please note that all CT scans at this facility use dose modulation, iterative reconstruction, and/or weight-based dosing when appropriate to reduce radiation dose to as low as reasonably achievable. Dictated by Germaine Carrillo MD @ Feb 28 2021 7:37PM Signed by Dr. Germaine Carrillo @ Feb 28 2021 7:41PM
--- NOTE | 2021-02-28 19:58 | CRLCT ---
INDICATION: Pain TECHNIQUE: Head CT without contrast. COMPARISON: January 05, 2020 FINDINGS: CSF spaces: Within normal limits for age. Brain parenchyma: Encephalomalacia in the right temporal lobe and right basal ganglia with associated ex vacuo dilatation of the right lateral ventricle. There are nonspecific low attenuation white matter changes consistent with chronic microvascular disease. No sign of hemorrhage or midline shift. There is a 1.4 x 1.9 cm expansile lytic lesion in the right occipital bone. The bony lesion is unchanged but there is new soft tissue density within this lesion. Skull base and calvarium: The visualized paranasal sinuses and mastoid air cells demonstrate no acute or significant findings. The visualized orbits are grossly unremarkable. No skull fractures. IMPRESSION: 1. No acute findings. 2. Stable size of an expansile lytic lesion in the right occipital lobe. The bony lesion is unchanged but there is new soft tissue density within this lesion. Recommend nonemergent MRI for further evaluation. 3. Stable encephalomalacia in the right temporal lobe and right basal ganglia. 4. Findings discussed with Dr. Ríos at 7:50 p.m. on February 28, 2021. Please note that all CT scans at this facility use dose modulation, iterative reconstruction, and/or weight-based dosing when appropriate to reduce radiation dose to as low as reasonably achievable. Dictated by Germaine Carrillo MD @ Feb 28 2021 7:42PM Signed by Dr. Germaine Carrillo @ Feb 28 2021 7:58PM
--- NOTE | 2021-03-01 09:42 | CR ---
Ribs 3V wo Chest Rt CLINICAL HISTORY: Pain FINDINGS: There is no acute fracture within the ribs. No destructive changes are seen. There is no focal pleural thickening or obvious effusion. IMPRESSION: Negative right ribs.
== END 2021-02-28 21:38 | disposition home or self-care (01) ==
LOC: JP.ED 18:32
DX: S16.1XXA Strain of muscle, fascia and tendon at neck level, initial encounter (principal); S20.211A Contusion of right front wall of thorax, initial encounter; S70.01XA Contusion of right hip, initial encounter; E78.00 Pure hypercholesterolemia, unspecified; J45.909 Unspecified asthma, uncomplicated; R51.9 Headache, unspecified; E05.90 Thyrotoxicosis, unspecified without thyrotoxic crisis or storm; R56.9 Unspecified convulsions; Z91.030 Bee allergy status; Z91.040 Latex allergy status; Z88.5 Allergy status to narcotic agent; Z91.048 Other nonmedicinal substance allergy status; Z86.73 Personal history of transient ischemic attack (TIA), and cerebral infarction without residual deficits; Z79.899 Other long term (current) drug therapy; Y04.0XXA Assault by unarmed brawl or fight, initial encounter
CPT/HCPCS: 70450; 71101; 72125; 96372; 99285; A9270; J1885

== ENCOUNTER 2021-03-06 18:32 | Emergency (ER) | payer MEDICARE, MEDICAID ==
[2021-03-06 18:53] VITALS: BP 138/85; PULSE 87
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
[2021-03-06] MEDS ORDERED: Acetaminophen/HYDROcodone 325-5 MG Tab PO ONE (20:42)
--- NOTE | 2021-03-07 09:07 | CR ---
Shoulder Comp Lt CLINICAL HISTORY: Pain, trauma FINDINGS: There is fracture of the distal clavicle with slight upward displacement of the distal aspect. The AC joint appears intact. Scapula is intact. Bones appear osteopenic. Impression: Displaced fracture of the distal clavicle
== END 2021-03-06 21:00 | disposition home or self-care (01) ==
LOC: JP.ED 18:32
DX: S42.032A Displaced fracture of lateral end of left clavicle, initial encounter for closed fracture (principal); G81.94 Hemiplegia, unspecified affecting left nondominant side; E78.00 Pure hypercholesterolemia, unspecified; J45.909 Unspecified asthma, uncomplicated; Z72.0 Tobacco use; Z91.030 Bee allergy status; Z88.8 Allergy status to other drugs, medicaments and biological substances; Z91.040 Latex allergy status; Z91.048 Other nonmedicinal substance allergy status; Z79.899 Other long term (current) drug therapy; Y04.8XXA Assault by other bodily force, initial encounter; Y92.009 Unspecified place in unspecified non-institutional (private) residence as the place of occurrence of the external cause
CPT/HCPCS: 73030; 99284; A9270

== ENCOUNTER 2021-04-08 19:44 | Emergency (ER) | payer MEDICARE, MEDICAID ==
[2021-04-08 21:08] VITALS: BP 117/82; PULSE 88
[2021-04-08] MEDS ORDERED: HYDROmorphone 1 MG/ML Syringe IM ONE (21:24)
[2021-04-08] MEDS ORDERED: Acetaminophen/HYDROcodone 325-5 MG Tab PO ONE (21:24)
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
== END 2021-04-08 21:40 | disposition home or self-care (01) ==
LOC: JP.ED 19:44
DX: R51.9 Headache, unspecified (principal); E78.00 Pure hypercholesterolemia, unspecified; E03.9 Hypothyroidism, unspecified; Z91.030 Bee allergy status; Z91.040 Latex allergy status; Z88.8 Allergy status to other drugs, medicaments and biological substances; Z91.048 Other nonmedicinal substance allergy status; Z88.5 Allergy status to narcotic agent; Z72.0 Tobacco use
CPT/HCPCS: 96372; 99283; A9270; J1170

== ENCOUNTER 2021-05-17 16:09 | Emergency (ER) | payer MEDICARE ==
[2021-05-17 17:10] VITALS: BP 102/68; PULSE 73
--- NOTE | 2021-05-17 17:18 | EDM.PDOC ---
ED HPI GENERAL MEDICAL PROBLEM - General Chief Complaint: Neurological Problem Stated Complaint: [facility] Time Seen by Provider: 05/17/21 16:50 Source of Information: Reports: Patient, Family History Limitations: Reports: No Limitations - History of Present Illness INITIAL COMMENTS - FREE TEXT/NARRATIVE: 56 year old female patient with history of seizures arrives to ER via ems with friend due to 30 minute seizure. Patient reports that she was sitting outside when she began shaking, she made it into the house "just in time" to take her oral gabapentin and lorazepam 1mg tablet, laid down and began having seizure like activity. This was a witnessed seizure by her friend who reports she was having full body thrashing with all extremities. Patient reports that she remembers the event and states "I have a headache now because during the seizure I was hitting myself in the head". Pt remembers that it lasted 30 minutes and this is unusual to her because her seizures dont usually last as long so she called 911. Denies recent medication changes, denies recent illness Onset: Today Duration: Hour(s): Location: Reports: Other ("seizure like activity") Improves with: Reports: None Worsens with: Reports: None Associated Symptoms: Reports: Headaches - Related Data Allergies Allergy/AdvReac Type Severity Reaction Status Date / Time bee pollen Allergy Severe Anaphylactic Verified 05/17/21 16:14 Shock butorphanol tartrate Allergy Rash Verified 05/17/21 16:14 [From Stadol] latex Allergy Itching Verified 05/17/21 16:14 meperidine HCl [From Demerol] Allergy Itching Verified 05/17/21 16:14 mold Allergy Cannot Verified 05/17/21 16:14 Remember Home Meds: Home Meds Amitriptyline HCl 50 mg PO BEDTIME 06/12/14 [History] Baclofen 10 mg PO TID PRN 06/12/14 [History] Simvastatin 20 mg PO BEDTIME 06/12/14 [History] Topiramate [Topamax] 100 mg PO BID 06/12/14 [History] Cholecalciferol (Vitamin D3) [Vitamin D3] 1,000 mg PO BID 09/05/15 [History] Thiamine HCl [B-1] 100 mg PO DAILY 09/03/16 [History] SUMAtriptan succinate [Sumatriptan Succinate] 25 mg PO BID PRN 06/02/17 [History] Cetirizine [ZyrTEC] 10 mg PO DAILY 09/30/17 [History] Gabapentin [Neurontin] 600 mg PO QID 09/30/17 [History] Ibuprofen 600 mg PO Q8H PRN 09/30/17 [History] Multivitamin with Minerals [Multiple Vitamin] 2 tab PO DAILY 09/30/17 [History] Sennosides/Docusate Sodium [Senna-Docusate Sodium] 1 tab PO BID 09/30/17 [History] Dextran 70/Hypromellose/PF [Artificial Tears Drops] 1 each EYEBOTH DAILY 02/18/18 [History] EPINEPHrine [Epipen] 0.3 mg IM ASDIRECTED PRN 02/18/18 [History] Potassium Chloride 20 meq PO BID 02/18/18 [History] Sertraline [Zoloft] 150 mg PO DAILY 02/18/18 [History] Omeprazole Magnesium [Prilosec Otc] 20 mg PO DAILY 01/05/20 [History] EPINEPHrine [Epinephrine] 1 injection IM ASDIRECTED PRN 06/12/20 [History] LORazepam [Lorazepam] 1 tab PO ASDIRECTED PRN 06/12/20 [History] QUEtiapine [SEROquel XR] 50 mg PO BEDTIME PRN 05/17/21 [History] Past Medical History HEENT History: Reports: Impaired Vision, Other (See Below) Other HEENT History: Top and bottom dentures Cardiovascular History: Reports: High Cholesterol Respiratory History: Reports: Asthma Gastrointestinal History: Reports: Chronic 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, Other (See Below) Genitourinary History: Reports: UTI, Recurrent [employer] History: Reports: PID, 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 History: Reports: Fracture Other 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 History: Left arm Neurological History: Reports: CVA, Migraines, Seizure, Other (See Below) Other Neuro History: has brace on left leg, left arm deficit Psychiatric History: Reports: Addiction, Anxiety, Depression, Suicide Attempt Endocrine/Metabolic History: Reports: Hyperthyroidism Hematologic History: Reports: B12 Deficiency Immunologic History: Reports: Other (See Below) Other Immunologic History: hepatitis b Oncologic (Cancer) History: Reports: Cervix Dermatologic History: Reports: Other (See Below) Other Dermatologic History: dry sensitive skin - Infectious Disease History Infectious Disease History: Reports: Chicken Pox, Hepatitis B - Past Surgical History Head Surgeries/Procedures: Reports: None HEENT Surgical History: Reports: None Cardiovascular Surgical History: Reports: None Respiratory Surgical History: Reports: None GI Surgical History: Reports: Appendectomy, Other (See Below) Other GI Surgeries/Procedures: laporoscopy exploritory lap found PID Female Surgical History: Reports: Endometrial Ablation Endocrine Surgical History: Reports: None Neurological Surgical History: Reports: None 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 Surgical History: Reports: None Oncologic Surgical History: Reports: None Dermatological Surgical History: Reports: None Social & Family History - Family History Family Medical History: Unobtainable - Tobacco Use Tobacco Use Status *Q: Current Every Day Tobacco User Years of Tobacco use: 40 Packs/Tins Daily: 1 Used Tobacco, but Quit: No Second Hand Smoke Exposure: Yes - Caffeine Use Caffeine Use: Reports: Coffee, Soda - Recreational Drug Use Recreational Drug Use: Yes Drug Use in Last 12 Months: Yes Recreational Drug Type: Reports: Marijuana/Hashish, Methamphetamine Recreational Drug Use Frequency: Rarely - Living Situation & Occupation Occupation: Disabled ED ROS GENERAL - Review of Systems Review Of Systems: See Below Constitutional: Reports: No Symptoms HEENT: Reports: No Symptoms Respiratory: Reports: No Symptoms Cardiovascular: Reports: No Symptoms Endocrine: Reports: No Symptoms GI/Abdominal: Reports: No Symptoms : Reports: No Symptoms 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: Reports: No Symptoms Skin: Reports: No Symptoms Neurological: Reports: Headache, Other (Patient is speaking with eyes closed during assessment conversation) Psychiatric: Reports: No Symptoms Hematologic/Lymphatic: Reports: No Symptoms Immunologic: Reports: No Symptoms - Physical Exam Exam: See Below Text/Narrative:: Patient laying on the cart and appears to be sleeping, would not wake to verbal stim but did wake to minimal tactical stimulation. Patients eyes are closed during assessment questions, she is alert and oriented, skin warm and dry, respirations are regular and non labored. Exam Limited By: No Limitations General Appearance: Alert, WD/WN, No Apparent Distress Head Exam: Atraumatic Neck: Normal Inspection Respiratory/Chest: No Respiratory Distress Cardiovascular: Normal Peripheral Pulses, Regular Rate, Rhythm GI/Abdominal: Soft, Non-Tender Neuro Exam (Abbreviated): Alert, Oriented, Slow to Respond (Remembers the "seizure" clearly, slow to respond with questions, patient speaking with eyes shut during assessment), Other Extremities: Normal Inspection, Normal Range of Motion Psychiatric: Flat Affect Skin Exam: Warm, Dry Course - Vital Signs Text/Narrative:: CBC, CMP, and magnesium ordered, tylenol for headache, patient agrees with plan of care at this time. Last Recorded V/S: Last Vital Signs Temp 36.7 C 05/17/21 16:22 Pulse 73 05/17/21 17:09 Resp 16 05/17/21 16:22 BP 102/68 05/17/21 17:09 Pulse Ox 95 05/17/21 17:09 - Orders/Labs/Meds Labs: Laboratory Tests 05/17/21 05/17/21 Range/Units 17:25 17:25 WBC 6.6 (4.5-11.0) K/uL RBC 4.16 (3.30-5.50) M/uL Hgb 11.8 L (12.0-15.0) g/dL Hct 36.7 (36.0-48.0) % MCV 88 (80-98) fL MCH 28 (27-31) pg MCHC 32 (32-36) % Plt Count 223 (150-400) K/uL Neut % (Auto) 49.0 (36-66) % Lymph % (Auto) 36.5 (24-44) % [place] % (Auto) 10.5 H (2-6) % Eos % (Auto) 3.8 (2-4) % Baso % (Auto) 0.2 (0-1) % Sodium 142 (140-148) mmol/L Potassium 4.6 (3.6-5.2) mmol/L Chloride 107 (100-108) mmol/L Carbon Dioxide 25 (21-32) mmol/L Anion Gap 10.4 (5.0-14.0) mmol/L BUN 18 (7-18) mg/dL Creatinine 0.9 (0.6-1.0) mg/dL Est Cr Clr Drug Dosing 60.27 mL/min Estimated GFR (MDRD) > 60 (>60) Glucose 90 (74-106) mg/dL Calcium 8.5 (8.5-10.1) mg/dL Magnesium 1.7 L (1.8-2.4) mg/dL Total Bilirubin 0.4 (0.2-1.0) mg/dL AST 20 (15-37) U/L ALT 23 (12-78) U/L Alkaline Phosphatase 112 (46-116) U/L Total Protein 6.1 L (6.4-8.2) g/dL Albumin 3.6 (3.4-5.0) g/dL Globulin 2.5 (2.3-3.5) g/dL Albumin/Globulin Ratio 1.4 (1.2-2.2) Meds: Medications Discontinued Medications Generic Name Dose Route Start Last Admin Trade Name Jesusq PRN Reason Stop Dose Admin Acetaminophen 1,000 mg 05/17/21 17:23 05/17/21 17:45 Acetaminophen 500 Mg Tab PO 05/17/21 17:24 1,000 mg ONETIME ONE Administration Departure - Departure Time of Disposition: 18:17 Disposition: Home, Self-Care 01 Condition: Good Clinical Impression: Seizure disorder - Discharge Information Instructions: Seizure, Adult, [id number] Referrals: PCP,None [Primary Care Provider] - Forms: ED Department Discharge Additional Instructions: Your lab test came back normal. Please return home and continue your current medication regimen. Return if you have any new or worsening symptoms. Sepsis Event Note (ED) - Evaluation Sepsis Screening Result: No Definite Risk
[2021-05-17] MEDS ORDERED: Acetaminophen 500 MG Tab PO ONE (17:23)
== END 2021-05-17 18:17 | disposition home or self-care (01) ==
LOC: JP.ED 16:09
DX: G40.909 Epilepsy, unspecified, not intractable, without status epilepticus (principal); E78.00 Pure hypercholesterolemia, unspecified; E03.9 Hypothyroidism, unspecified; Z91.040 Latex allergy status; Z91.048 Other nonmedicinal substance allergy status; Z79.899 Other long term (current) drug therapy; Z91.030 Bee allergy status; Z72.0 Tobacco use
CPT/HCPCS: 36415; 80053; 83735; 85025; 99284; A9270-GY

== ENCOUNTER 2022-07-03 15:19 | Emergency (ER) | payer MEDICARE ==
[2022-07-03 17:26] VITALS: BP 87/59; PULSE 74
== END 2022-07-03 18:12 | disposition home or self-care (01) ==
LOC: JP.ED 15:19
DX: G43.109 Migraine with aura, not intractable, without status migrainosus (principal); E78.00 Pure hypercholesterolemia, unspecified; F17.210 Nicotine dependence, cigarettes, uncomplicated; Z86.73 Personal history of transient ischemic attack (TIA), and cerebral infarction without residual deficits; Z91.030 Bee allergy status; Z91.040 Latex allergy status; Z88.8 Allergy status to other drugs, medicaments and biological substances; Z91.048 Other nonmedicinal substance allergy status; Z79.899 Other long term (current) drug therapy
CPT/HCPCS: 70450; 99284; 99284-25

== ENCOUNTER 2023-12-08 14:56 | Emergency (ER) | payer MEDICAID, MEDICARE ==
[2023-12-08] MEDS ORDERED: Ketorolac 30 MG/ML SDV IM ONE (15:45)
[2023-12-08 15:56] LABS: BASOPHILS ABSOLUTE AUTO 0.03 K/uL (0.00-0.10); BASOPHILS PERCENT AUTO 0.5 % (0.1-1.3); EOSINOPHILS ABSOLUTE AUTO 0.15 K/uL (0.00-0.40); EOSINOPHILS PERCENT AUTO 2.3 % (0.0-5.4); HEMATOCRIT 34.9 % (34.3-46.0); HEMOGLOBIN 11.5 g/dL (11.2-15.5); IMMATURE GRAN PERCENT AUTO 0.2 % (0.0-0.7); LYMPHOCYTES PERCENT AUTO 29.2 % (11.4-47.7); MEAN CORPUSCULAR HEMOGLOBIN 27.8 pg (31.6-35.5); MEAN CORPUSCULAR VOLUME 84.3 fL (81.4-99.0); MONOCYTES ABSOLUTE AUTO 0.49 K/uL (0.20-0.90); MONOCYTES PERCENT AUTO 7.5 % (3.3-12.6); NEUTROPHILS ABSOLUTE AUTO 3.92 K/uL (1.0-7.6); NEUTROPHILS PERCENT AUTO 60.3 % (40.0-78.1); PLATELET COUNT,PLT 241 K/uL (130-375); RED BLOOD CELL COUNT 4.14 M/uL (3.77-5.24); WHITE BLOOD CELL COUNT,WBC 6.5 K/uL (3.2-11.0)
[2023-12-08 15:57] LABS: IMMATURE GRAN ABSOLUTE AUTO 0.01 K/uL (0.00-0.23)
[2023-12-08 16:28] VITALS: BP 126/75; PULSE 76
[2023-12-08 16:28] LABS: A/G RATIO 1.1 (1.2-2.2); ALANINE AMINOTRANSFERASE,ALT 23 U/L (12-78); ALBUMIN 3.4 g/dL (3.4-5.0); ALKALINE PHOSPHATASE 103 U/L (46-116); ASPARTATE AMNIOTRANSFERASE,AST 15 U/L (15-37); BILIRUBIN TOTAL 0.2 mg/dL (0.2-1.0); BLOOD UREA NITROGEN,BUN 18 mg/dL (7-18); CALCIUM 8.2 mg/dL (8.5-10.1); CARBON DIOXIDE,CO2 22 mmol/L (21-32); CHLORIDE,CL 109 mmol/L (100-108); CREATININE 0.8 mg/dL (0.6-1.0); EST CRCL DRUG DOSING (CG) 65.86 mL/min; ESTIMATED GFR 85 mL/min (>60); GLUCOSE RANDOM 101 mg/dL (74-106); POTASSIUM,K 3.7 mmol/L (3.6-5.2); PROTEIN TOTAL,TP 6.5 g/dL (6.4-8.2); SODIUM,NA 141 mmol/L (140-148)
[2023-12-08 16:35] LABS: ANION GAP 13.7 mmol/L (5.0-14.0); TROPONIN I HIGH SENSITIVITY < 4.0 pg/mL (<=60.3)
== END 2023-12-08 16:56 | disposition home or self-care (01) ==
LOC: JP.ED 14:56
DX: R07.89 Other chest pain (principal); F17.210 Nicotine dependence, cigarettes, uncomplicated; E78.00 Pure hypercholesterolemia, unspecified; I10 Essential (primary) hypertension; Z86.73 Personal history of transient ischemic attack (TIA), and cerebral infarction without residual deficits; Z86.16 Personal history of COVID-19; Z79.899 Other long term (current) drug therapy; Z91.048 Other nonmedicinal substance allergy status; Z91.040 Latex allergy status; Z88.8 Allergy status to other drugs, medicaments and biological substances
CPT/HCPCS: 36415; 71045; 80053; 83605; 84484; 85025; 93005; 96372; 99285; J1885; 93010

== ENCOUNTER 2024-06-12 15:41 | Emergency (ER) | payer MEDICARE, MEDICAID ==
[2024-06-12 16:53] VITALS: BP 111/83
[2024-06-12 18:14] VITALS: PULSE 77
== END 2024-06-12 18:58 | disposition home or self-care (01) ==
LOC: JP.ED 15:41
DX: S99.912A Unspecified injury of left ankle, initial encounter (principal); I10 Essential (primary) hypertension; E78.00 Pure hypercholesterolemia, unspecified; J45.909 Unspecified asthma, uncomplicated; E03.9 Hypothyroidism, unspecified; Z86.16 Personal history of COVID-19; Z90.49 Acquired absence of other specified parts of digestive tract; F17.210 Nicotine dependence, cigarettes, uncomplicated; Z91.030 Bee allergy status; Z91.040 Latex allergy status; Z91.048 Other nonmedicinal substance allergy status; Z88.8 Allergy status to other drugs, medicaments and biological substances; X58.XXXA Exposure to other specified factors, initial encounter
CPT/HCPCS: 73610-26-LT; 73610-LT; 99283

== ENCOUNTER 2024-08-20 17:12 | Emergency (ER) | payer MEDICARE, MEDICAID ==
[2024-08-20 18:31] LABS: BASOPHILS ABSOLUTE AUTO 0.02 K/uL (0.00-0.10); BASOPHILS PERCENT AUTO 0.2 % (0.1-1.3); EOSINOPHILS ABSOLUTE AUTO 0.06 K/uL (0.00-0.40); EOSINOPHILS PERCENT AUTO 0.7 % (0.0-5.4); HEMATOCRIT 37.5 % (34.3-46.0); HEMOGLOBIN 12.5 g/dL (11.2-15.5); IMMATURE GRAN ABSOLUTE AUTO 0.01 K/uL (0.00-0.23); IMMATURE GRAN PERCENT AUTO 0.1 % (0.0-0.7); LYMPHOCYTES ABSOLUTE AUTO 2.94 K/uL (0.8-3.3); LYMPHOCYTES PERCENT AUTO 35.6 % (11.4-47.7); MEAN CORPUSCULAR HEMOGLOBIN 26.2 pg (31.6-35.5); MEAN CORPUSCULAR HGB CONC 33.3 g/dL (31.6-35.5); MEAN CORPUSCULAR VOLUME 78.5 fL (81.4-99.0); MONOCYTES ABSOLUTE AUTO 0.67 K/uL (0.20-0.90); MONOCYTES PERCENT AUTO 8.1 % (3.3-12.6); NEUTROPHILS ABSOLUTE AUTO 4.55 K/uL (1.0-7.6); NEUTROPHILS PERCENT AUTO 55.3 % (40.0-78.1); PLATELET COUNT,PLT 249 K/uL (130-375); RED BLOOD CELL COUNT 4.78 M/uL (3.77-5.24); WHITE BLOOD CELL COUNT,WBC 8.3 K/uL (3.2-11.0)
[2024-08-20 18:48] LABS: ANION GAP 11.1 mmol/L (5.0-14.0); BLOOD UREA NITROGEN,BUN 17 mg/dL (7-18); C-REACTIVE PROTEIN < 0.50 mg/dL (<0.50); CALCIUM 9.8 mg/dL (8.5-10.1); CARBON DIOXIDE,CO2 29 mmol/L (21-32); CHLORIDE,CL 103 mmol/L (100-108); CREATININE 0.8 mg/dL (0.6-1.0); ESTIMATED GFR 85 mL/min (>60); GLUCOSE RANDOM 90 mg/dL (74-106); POTASSIUM,K 3.1 mmol/L (3.6-5.2); SODIUM,NA 140 mmol/L (140-148)
[2024-08-20] MEDS: Sodium Chloride 0.9% 1,000 ML IV SCH (19:50)
[2024-08-20] MEDS: Sodium Chloride 0.9% 80 ML IV SCH (20:12)
[2024-08-20] MEDS: Iopamidol 612 MG/ML 100 ML Bottle IV SCH (20:12)
[2024-08-20 23:05] VITALS: BP 121/74; PULSE 61
== END 2024-08-20 23:00 | disposition home or self-care (01) ==
LOC: JP.ED 17:12
DX: R10.30 Lower abdominal pain, unspecified (principal); E78.00 Pure hypercholesterolemia, unspecified; I10 Essential (primary) hypertension; F17.210 Nicotine dependence, cigarettes, uncomplicated; Z86.73 Personal history of transient ischemic attack (TIA), and cerebral infarction without residual deficits; Y04.8XXA Assault by other bodily force, initial encounter; Z79.899 Other long term (current) drug therapy; Z88.8 Allergy status to other drugs, medicaments and biological substances; Z91.040 Latex allergy status; Z91.048 Other nonmedicinal substance allergy status
CPT/HCPCS: 36415; 74177; 80048; 85025; 86140; 99285; J3490; J7030; Q9967

== ENCOUNTER 2024-08-27 23:04 | Emergency (ER) | payer MEDICARE, MEDICAID ==
[2024-08-27] MEDS: Acetaminophen 325 MG Tab PO ONE (23:30)
[2024-08-27 23:36] LABS: BASOPHILS ABSOLUTE AUTO 0.03 K/uL (0.00-0.10); BASOPHILS PERCENT AUTO 0.4 % (0.1-1.3); EOSINOPHILS ABSOLUTE AUTO 0.14 K/uL (0.00-0.40); EOSINOPHILS PERCENT AUTO 1.8 % (0.0-5.4); HEMATOCRIT 32.8 % (34.3-46.0); HEMOGLOBIN 10.8 g/dL (11.2-15.5); IMMATURE GRAN ABSOLUTE AUTO 0.02 K/uL (0.00-0.23); IMMATURE GRAN PERCENT AUTO 0.3 % (0.0-0.7); LYMPHOCYTES ABSOLUTE AUTO 2.51 K/uL (0.8-3.3); MEAN CORPUSCULAR HEMOGLOBIN 26.7 pg (31.6-35.5); MEAN CORPUSCULAR HGB CONC 32.9 g/dL (31.6-35.5); MONOCYTES PERCENT AUTO 7.6 % (3.3-12.6); NEUTROPHILS ABSOLUTE AUTO 4.55 K/uL (1.0-7.6); NEUTROPHILS PERCENT AUTO 57.9 % (40.0-78.1); PLATELET COUNT,PLT 230 K/uL (130-375); RED BLOOD CELL COUNT 4.05 M/uL (3.77-5.24); WHITE BLOOD CELL COUNT,WBC 7.9 K/uL (3.2-11.0)
[2024-08-27 23:51] LABS: CALCIUM 9.2 mg/dL (8.5-10.1); EST CRCL DRUG DOSING (CG) 50.75 mL/min; POTASSIUM,K 4.7 mmol/L (3.6-5.2)
[2024-08-27 23:52] LABS: ANION GAP 13.7 mmol/L (5.0-14.0)
[2024-08-28] MEDS: Sodium Chloride 0.9% 10 ML Syringe FLUSH PRN (02:25)
[2024-08-28] MEDS: Sodium Chloride 0.9% 100 ML IV SCH (02:25)
[2024-08-28] MEDS: Iopamidol 755 Mg/ML 100 ML Bottle IV SCH (02:25)
[2024-08-28] MEDS: Sodium Chloride 0.9% 1,000 ML IV SCH (03:46)
[2024-08-28 07:46] VITALS: BP 103/69; PULSE 74
== END 2024-08-28 09:58 | disposition home or self-care (01) ==
LOC: JP.ED 23:04
DX: S01.01XA Laceration without foreign body of scalp, initial encounter (principal); I10 Essential (primary) hypertension; E78.00 Pure hypercholesterolemia, unspecified; Z86.73 Personal history of transient ischemic attack (TIA), and cerebral infarction without residual deficits; Z91.030 Bee allergy status; Z88.8 Allergy status to other drugs, medicaments and biological substances; Z91.048 Other nonmedicinal substance allergy status; Z91.040 Latex allergy status; Z79.899 Other long term (current) drug therapy; F17.210 Nicotine dependence, cigarettes, uncomplicated; W19.XXXA Unspecified fall, initial encounter
CPT/HCPCS: 36415; 70450; 70496; 70498; 80048; 80307; 85025; 99284; 99285; A9270-GY; J3490; J7030; Q9967

== ENCOUNTER 2024-10-12 13:16 | Emergency (ER) | payer MEDICARE, MEDICAID ==
[2024-10-12 13:50] LABS: APPEARANCE,URINE CLEAR (CLEAR); BILIRUBIN,URINE NEGATIVE (NEGATIVE); COLOR,URINE YELLOW (YELLOW); GLUCOSE,URINE NEGATIVE (NEGATIVE); KETONES,URINE NEGATIVE (NEGATIVE); LEUKOCYTE ESTERASE,URINE NEGATIVE (NEGATIVE); NITRITE,URINE NEGATIVE (NEGATIVE); OCCULT BLOOD,URINE NEGATIVE (NEGATIVE); PROTEIN,URINE NEGATIVE (NEGATIVE); UROBILINOGEN,URINE 0.2 EU/dL (0.2-1.0)
[2024-10-12 13:55] LABS: AMPHETAMINES SCREEN, URINE NEGATIVE (NEGATIVE); BARBITURATE SCREEN,URINE NEGATIVE (NEGATIVE); BENZODIAZEPINES SCREEN,URINE NEGATIVE (NEGATIVE); METHADONE SCREEN, URINE NEGATIVE (NEGATIVE); METHAMPHETAMINES SCREEN, URINE NEGATIVE (NEGATIVE); OXYCODONE SCREEN,URINE NEGATIVE (NEGATIVE); PROPOXYPHENE SCREEN,URINE NEGATIVE (NEGATIVE); THC SCREEN,URINE 50 NG/ML NEGATIVE (NEGATIVE)
[2024-10-12 13:58] LABS: BASOPHILS ABSOLUTE AUTO 0.04 K/uL (0.00-0.10); BASOPHILS PERCENT AUTO 0.5 % (0.1-1.3); EOSINOPHILS ABSOLUTE AUTO 0.36 K/uL (0.00-0.40); EOSINOPHILS PERCENT AUTO 4.4 % (0.0-5.4); HEMATOCRIT 38.8 % (34.3-46.0); HEMOGLOBIN 12.3 g/dL (11.2-15.5); IMMATURE GRAN PERCENT AUTO 0.1 % (0.0-0.7); LYMPHOCYTES ABSOLUTE AUTO 2.56 K/uL (0.8-3.3); LYMPHOCYTES PERCENT AUTO 31.3 % (11.4-47.7); MEAN CORPUSCULAR HEMOGLOBIN 26.4 pg (31.6-35.5); MEAN CORPUSCULAR HGB CONC 31.7 g/dL (31.6-35.5); MEAN CORPUSCULAR VOLUME 83.3 fL (81.4-99.0); MONOCYTES ABSOLUTE AUTO 0.75 K/uL (0.20-0.90); MONOCYTES PERCENT AUTO 9.2 % (3.3-12.6); NEUTROPHILS ABSOLUTE AUTO 4.45 K/uL (1.0-7.6); NEUTROPHILS PERCENT AUTO 54.5 % (40.0-78.1); PLATELET COUNT,PLT 223 K/uL (130-375); RED BLOOD CELL COUNT 4.66 M/uL (3.77-5.24); WHITE BLOOD CELL COUNT,WBC 8.2 K/uL (3.2-11.0)
[2024-10-12 13:59] LABS: IMMATURE GRAN ABSOLUTE AUTO 0.01 K/uL (0.00-0.23)
[2024-10-12 14:00] LABS: AMORPHOUS SEDIMENT,URINE NOT SEEN; BACTERIA,URINE RARE; EPITHELIAL CELLS,URINE NOT SEEN; MUCUS,URINE NOT SEEN; RBC,URINE 0-5 (0-5); WBC,URINE 0-5 (0-5)
[2024-10-12 14:20] LABS: A/G RATIO 1.1 (1.2-2.2); ALANINE AMINOTRANSFERASE,ALT 48 U/L (12-78); ALKALINE PHOSPHATASE 111 U/L (46-116); ANION GAP 6.1 mmol/L (5.0-14.0); ASPARTATE AMNIOTRANSFERASE,AST 26 U/L (15-37); BILIRUBIN TOTAL 0.2 mg/dL (0.2-1.0); BLOOD UREA NITROGEN,BUN 16 mg/dL (7-18); CALCIUM 10.2 mg/dL (8.5-10.1); CARBON DIOXIDE,CO2 31 mmol/L (21-32); CHLORIDE,CL 105 mmol/L (100-108); EST CRCL DRUG DOSING (CG) 54.51 mL/min; ESTIMATED GFR 65 mL/min (>60); GLUCOSE RANDOM 103 mg/dL (74-106); POTASSIUM,K 4.1 mmol/L (3.6-5.2); PROTEIN TOTAL,TP 7.6 g/dL (6.4-8.2); SODIUM,NA 142 mmol/L (140-148)
[2024-10-12 14:29] VITALS: BP 117/75; PULSE 75
[2024-10-12 14:30] LABS: CORONAVIRUS COVID-19 NAA NEGATIVE (NEGATIVE); INFLUENZA A NAA NEGATIVE (NEGATIVE); INFLUENZA B NAA NEGATIVE (NEGATIVE); RESPIRATORY SYNCYTIAL VIR NAA NEGATIVE (NEGATIVE)
== END 2024-10-12 15:26 | disposition home or self-care (01) ==
LOC: JP.ED 13:16
DX: R51.9 Headache, unspecified (principal); I10 Essential (primary) hypertension; J45.909 Unspecified asthma, uncomplicated; E78.00 Pure hypercholesterolemia, unspecified; Z91.040 Latex allergy status; Z91.048 Other nonmedicinal substance allergy status; Z91.030 Bee allergy status; Z88.8 Allergy status to other drugs, medicaments and biological substances; Z79.899 Other long term (current) drug therapy; Z90.49 Acquired absence of other specified parts of digestive tract
CPT/HCPCS: 0241U; 36415; 70450; 70450-26; 71045; 71045-26; 80053; 80305-QW; 80307; 81001; 83605; 84145; 85025; 99285